=== PATIENT | male | born 1940 | race American Indian/Alaskan Native ===

== ENCOUNTER 2017-04-01 00:35 | Inpatient (IN) | payer MEDICARE ==
[2017-04-01 01:01] LABS: Basophils % (Auto) 0.3 % (0.0-1.8); Eosinophils % (Auto) 1.3 % (0.0-4.3); Hematocrit 37.5 % (35.5-45.6); Hemoglobin 12.1 gm/dl (11.8-15.2); Mean Corpuscular HGB Conc 32 % (32-34); Mean Corpuscular Hemoglobin 30 pg (28-32); Mean Corpuscular Volume 92 fl (84-94); Platelet Count 228 K/mm3 (140-440); Red Blood Count 4.07 M/mm3 (3.65-5.03); Red Cell Distribution Width 14.3 % (13.2-15.2); White Blood Count 7.9 K/mm3 (4.5-11.0)
[2017-04-01] MEDS ORDERED: MAGNESIUM SULFATE IV ONE (01:15)
[2017-04-01] MEDS ORDERED: PROVENTIL IH ONE (01:15)
[2017-04-01 01:34] LABS: BUN/Creatinine Ratio 16.42; Calcium 8.5 mg/dL (8.4-10.2); Chloride 101.8 mmol/L (98-107); Potassium 3.7 mmol/L (3.6-5.0)
[2017-04-01] MEDS ORDERED: LASIX IV ONE (01:40)
[2017-04-01] MEDS ORDERED: MAGNESIUM SULFATE 1 GM in NACL 0.9% 50 ML IV ONE (02:00)
[2017-04-01] MEDS ORDERED: BUMEX IV ONE (02:18)
--- NOTE | 2017-04-01 02:18 | Emergency Department Report ---
HPI - General Chief Complaint: Dyspnea/Respdistress Time Seen by Provider: 04/01/17 00:53 - HPI HPI: Patient brought to the ED with shortness of breath, or rales, wheezing. Patient denies any chest pain. Symptoms started the yesterday but got worse 1 hour prior to ER presentation. No fever, no chills, no night sweats. ED Past Medical Hx - Past Medical History Previous Medical History?: Yes Hx Hypertension: Yes Hx Congestive Heart Failure: Yes (ejection fraction 30-35% two years ago) Hx HIV: No - Social History Smoking Status: Current Every Day Smoker Substance Use Type: None - Medications Home Medications: Home Medications Medication Instructions Recorded Confirmed Last Taken Type Carvedilol [Coreg] 12.5 mg PO BID #60 tablet 10/12/16 Unknown Rx Docusate Sodium [Colace CAP] 100 mg PO BID capsule 10/12/16 Unknown Rx Furosemide [Lasix TAB] 40 mg PO QDAY #60 tablet 10/12/16 Unknown Rx Ipratropium/Albuterol Sulfate 1 ampul IH TIDRT #60 ampul.neb 10/12/16 Unknown Rx [DUONEB *Not for PRN Use*] Lisinopril [Zestril TAB] 40 mg PO QDAY #30 tablet 10/12/16 Unknown Rx Magnesium Hydroxide [Milk of 30 ml PO Q4H PRN #300 oral.liqd 10/12/16 Unknown Rx Magnesia] Sennosides Tab [Senokot] 8.6 mg PO Q12HR #60 tablet 10/12/16 Unknown Rx oxyCODONE /ACETAMINOPHEN [Percocet 1 tab PO Q6H PRN #30 tablet 10/12/16 Unknown Rx 5/325 mg] ED Review of Systems ROS: Stated complaint: ANGY Other details as noted in HPI Comment: All other systems reviewed and negative Respiratory: shortness of breath, SOB with exertion Cardiovascular: chest pain Physical Exam - Physical Exam Vital Signs: Vital Signs 04/01/17 04/01/17 04/01/17 00:33 00:40 00:42 Temperature 97.9 F Pulse Rate 135 H 135 H Pulse Rate [ Anterior Bilateral Throughout] Respiratory 35 H 24 Rate Respiratory Rate [Anterior Bilateral Throughout] Blood Pressure 243/136 243/136 O2 Sat by Pulse 78 L 95 95 Oximetry 04/01/17 04/01/17 04/01/17 00:50 01:00 01:10 Temperature Pulse Rate 112 H 113 H 110 H Pulse Rate [ Anterior Bilateral Throughout] Respiratory 29 H 26 H 27 H Rate Respiratory Rate [Anterior Bilateral Throughout] Blood Pressure 186/105 183/112 183/112 O2 Sat by Pulse 94 92 92 Oximetry 04/01/17 02:05 Temperature Pulse Rate Pulse Rate [ 96 H Anterior Bilateral Throughout] Respiratory Rate Respiratory 24 Rate [Anterior Bilateral Throughout] Blood Pressure O2 Sat by Pulse Oximetry Physical Exam: Gen. alert and oriented 3 in no distress Head atraumatic normocephalic Eyes PERR LA EOMI Chest regular rate and rhythm normal S1-S2 , severe JVD bilaterally lungs decreased breath sounds bilaterally, expiratory wheezing, rales. Abdomen soft nondistended Back no point tenderness paravertebral tenderness Neuro no focal deficit. Psych normal mood. ED Course Vital Signs 04/01/17 04/01/17 04/01/17 00:33 00:40 00:42 Temperature 97.9 F Pulse Rate 135 H 135 H Pulse Rate [ Anterior Bilateral Throughout] Respiratory 35 H 24 Rate Respiratory Rate [Anterior Bilateral Throughout] Blood Pressure 243/136 243/136 O2 Sat by Pulse 78 L 95 95 Oximetry 04/01/17 04/01/17 04/01/17 00:50 01:00 01:10 Temperature Pulse Rate 112 H 113 H 110 H Pulse Rate [ Anterior Bilateral Throughout] Respiratory 29 H 26 H 27 H Rate Respiratory Rate [Anterior Bilateral Throughout] Blood Pressure 186/105 183/112 183/112 O2 Sat by Pulse 94 92 92 Oximetry 04/01/17 02:05 Temperature Pulse Rate Pulse Rate [ 96 H Anterior Bilateral Throughout] Respiratory Rate Respiratory 24 Rate [Anterior Bilateral Throughout] Blood Pressure O2 Sat by Pulse Oximetry ED Medical Decision Making - Lab Data Result diagrams: 04/01/17 00:56 04/01/17 00:52 Critical care attestation.: If time is entered above; I have spent that time in minutes in the direct care of this critically ill patient, excluding procedure time. ED Disposition Clinical Impression: Acute exacerbation of congestive heart failure Disposition: OP ADMIT IP TO THIS HOSP Is pt being admited?: Yes Does the pt Need Aspirin: Yes Condition: Stable Referrals: PRIMARY CARE, [Primary Care Provider] - 3-5 Days
[2017-04-01] MEDS: ASPIRIN PO SCH ×2 (03:08→09:06)
--- NOTE | 2017-04-01 03:15 | History and Physical Report ---
History of Present Illness Date of examination: 04/01/17 Date of admission: 04/01/17 02:23 Chief complaint: Shortness of breath History of present illness: 77-year-old -[place] male with past medical history significant for CHF with ejection fraction of 20-25%, hypertension brought to the emergency department via EMS this morning for the complaints of shortness of breath. Patient is a poor historian. He said he become anxious and SOB. No chest pain, fever or cough. Patient is noncompliant with his medications. Per EMS report patient's blood pressure was 2 40 / 1 50 mmhg, and O2 saturation was 76%. In the emergency department his blood pressure was normalized and patient was put on BiPAP and saturating in the mid 90s. Patient has elevated troponin level and cardiology was consulted and recommended to put him on heparin drip and will see him in the morning. REVIEW OF SYSTEMS: GENERAL: no weight change, no fatigue, no fever HEAD: no head ache EYES: no blurry vision, no acute visual loss EARS: no hearing loss, no discharge, no earache NOSE: no stuffiness, no sneezing, no discharge MOUTH, THROAT AND NECK: no bleeding gums, no sore throat, no swollen neck CARDIAC: no palpitations, + dyspnea on exertion, no orthopnea, no PND, + edema, no chest pain RESPIRATORY: + shortness of breath, no wheeze, no cough, no sputum, no hemoptysis, no asthma GI: no decreased appetite, no nausea, no vomiting, no dysphagia, no diarrhea, no constipation, no abdominal pain URINARY: no change in frequency, no urgency, no polyuria, no hematuria, no incontinence MUSCULOSKELETAL: no muscle weakness, no pain, no joint stiffness NEUROLOGIC: no loss of sensation/numbness, no tingling, no tremors, no weakness/ paralysis HEMATOLOGIC: no anemia, no easy bruising SKIN: no rashes ENDOCRINE: no heat/cold intolerance, no polyuria, no polydipsia, no thyroid problems, no diabetes PSYCHIATRIC: no anxiety, no depression, no suicidal ideations Past History Past Medical History: heart failure, hypertension Past Surgical History: No surgical history Social history: full code. denies: smoking, alcohol abuse, prescription drug abuse, IV drug use Family history: no significant family history Medications and Allergies Allergies Allergy/AdvReac Type Severity Reaction Status Date / Time No Known Allergies Allergy Verified 12/18/14 17:34 Home Medications Medication Instructions Recorded Confirmed Last Taken Type Carvedilol [Coreg] 12.5 mg PO BID #60 tablet 10/12/16 Unknown Rx Docusate Sodium [Colace CAP] 100 mg PO BID capsule 10/12/16 Unknown Rx Furosemide [Lasix TAB] 40 mg PO QDAY #60 tablet 10/12/16 Unknown Rx Ipratropium/Albuterol Sulfate 1 ampul IH TIDRT #60 ampul.neb 10/12/16 Unknown Rx [DUONEB *Not for PRN Use*] Lisinopril [Zestril TAB] 40 mg PO QDAY #30 tablet 10/12/16 Unknown Rx Magnesium Hydroxide [Milk of 30 ml PO Q4H PRN #300 oral.liqd 10/12/16 Unknown Rx Magnesia] Sennosides Tab [Senokot] 8.6 mg PO Q12HR #60 tablet 10/12/16 Unknown Rx oxyCODONE /ACETAMINOPHEN [Percocet 1 tab PO Q6H PRN #30 tablet 10/12/16 Unknown Rx 5/325 mg] Active Meds: Active Medications Aspirin (Aspirin) 325 mg PO QDAY PERNELL Last Admin: 04/01/17 03:08 Dose: 325 mg Magnesium Sulfate 1 gm/ Sodium (Chloride) 52 mls @ 26 mls/hr IV ONCE.ED ONE Stop: 04/01/17 03:59 Last Admin: 04/01/17 02:02 Dose: 26 mls/hr Exam - Physical Exam Narrative exam: Patient is on BiPAP. The patient appeared well nourished and normally developed. Vital signs as documented. Head exam is unremarkable. No scleral icterus . Neck is without jugular venous distension, thyromegaly, or carotid bruits. Lungs decrease air entry. Cardiac exam reveals regular rate and Rhythm. First and second heart sounds normal. No murmurs, rubs or gallops. Abdominal exam reveals normal bowel sounds, no masses, no organomegaly and no aortic enlargement. Extremities are nonedematous and both femoral and pedal pulses are normal. 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 No focal weakness. - Constitutional Vitals: Temp Pulse Resp BP Pulse Ox 97.9 F 98 H 21 133/77 93 04/01/17 00:42 04/01/17 02:10 04/01/17 02:10 04/01/17 02:10 04/01/17 02:10 Results - Labs CBC & Chem 7: 04/01/17 00:56 04/01/17 00:52 Labs: Laboratory Last Values WBC 7.9 K/mm3 (4.5-11.0) 04/01/17 00:56 RBC 4.07 M/mm3 (3.65-5.03) 04/01/17 00:56 Hgb 12.1 gm/dl (11.8-15.2) 04/01/17 00:56 Hct 37.5 % (35.5-45.6) 04/01/17 00:56 MCV 92 fl (84-94) 04/01/17 00:56 MCH 30 pg (28-32) 04/01/17 00:56 MCHC 32 % (32-34) 04/01/17 00:56 RDW 14.3 % (13.2-15.2) 04/01/17 00:56 Plt Count 228 K/mm3 (140-440) 04/01/17 00:56 Lymph % (Auto) 48.5 % (13.4-35.0) H 04/01/17 00:56 [place] % (Auto) 1.9 % (0.0-7.3) 04/01/17 00:56 Eos % (Auto) 1.3 % (0.0-4.3) 04/01/17 00:56 Baso % (Auto) 0.3 % (0.0-1.8) 04/01/17 00:56 Lymph # 3.8 K/mm3 (1.2-5.4) 04/01/17 00:56 [place] # 0.2 K/mm3 (0.0-0.8) 04/01/17 00:56 Eos # 0.1 K/mm3 (0.0-0.4) 04/01/17 00:56 Baso # 0.0 K/mm3 (0.0-0.1) 04/01/17 00:56 Seg Neutrophils % 48.0 % (40.0-70.0) 04/01/17 00:56 Seg Neutrophils # 3.8 K/mm3 (1.8-7.7) 04/01/17 00:56 Sodium 140 mmol/L (137-145) 04/01/17 00:52 Potassium 3.7 mmol/L (3.6-5.0) 04/01/17 00:52 Chloride 101.8 mmol/L (98-107) 04/01/17 00:52 Carbon Dioxide 17 mmol/L (22-30) L 04/01/17 00:52 Anion Gap 25 mmol/L 04/01/17 00:52 BUN 23 mg/dL (9-20) H 04/01/17 00:52 Creatinine 1.4 mg/dL (0.8-1.5) 04/01/17 00:52 Estimated GFR 59 ml/min 04/01/17 00:52 BUN/Creatinine Ratio 16.42 % 04/01/17 00:52 Glucose 274 mg/dL (75-100) H 04/01/17 00:52 Calcium 8.5 mg/dL (8.4-10.2) 04/01/17 00:52 Troponin T 0.030 ng/mL (0.00-0.029) H 04/01/17 00:52 NT-Pro-B Natriuret Pep 7570 pg/mL (0-900) H 04/01/17 02:30 Triglycerides 119 mg/dL (2-149) 04/01/17 00:52 Cholesterol 167 mg/dL (50-199) 04/01/17 00:52 LDL Cholesterol Direct 101 mg/dL (50-130) 04/01/17 00:52 HDL Cholesterol 43 mg/dL (40-59) 04/01/17 00:52 Cholesterol/HDL Ratio 3.88 % 04/01/17 00:52 - Imaging and Cardiology EKG: image reviewed (no significant change from base line) Chest x-ray: image reviewed (pulmonary vascular congestion) Assessment and Plan Assessment and plan: Acute hypoxic respiratory failure Acute on chronic systolic CHF exacerbation NSTEMI Hypertensive emergency - ON BIPAP, O2 support - Managed according to CHF protocol - Cardiology consulted by ED Doc and recommend to start on heparin and will see him in the mrning - Resume appropriate home medications DVT prophylaxis - On therapeutic INR Disposition - admit to telemetry floor. Advance Directives: Yes VTE prophylaxis?: Chemical Plan of care discussed with patient/family: Yes
[2017-04-01] MEDS ORDERED: PERCOCET 5/325 PO PRN (03:19)
[2017-04-01] MEDS ORDERED: MILK OF MAGNESIA PO PRN (03:19)
[2017-04-01 03:55] LABS: Hematocrit 34.9 % (35.5-45.6); Hemoglobin 11.5 gm/dl (11.8-15.2)
[2017-04-01] MEDS ORDERED: HEPARIN/ 0.45% NACL-25,000 UNIT/500 ML 25,000 UNIT/500 ML BAG IV SCH (04:00)
[2017-04-01 04:06] LABS: Bacteria,Urine 1+ /HPF (Negative); Bilirubin,Urine NEG (Negative); Blood,Urine MOD (Negative); Ketones,Urine NEG (Negative); Leukocyte Esterase,Urine TR (Negative); Nitrite,Urine NEG (Negative); Protein,Urine <15 mg/dL mg/dL (Negative); Urobilinogen,Urine < 2.0 mg/dL (<2.0)
[2017-04-01 04:06] LABS: INR 1.14 (0.87-1.13)
[2017-04-01 04:07] LABS: Partial Thromboplastin Time 28.6 Sec. (24.2-36.6)
[2017-04-01] MEDS: LASIX IV SCH ×2 (07:42→17:29)
[2017-04-01] MEDS: HEPARIN/ 0.45% NACL-25,000 UNIT/500 ML 25,000 UNIT/500 ML BAG IV SCH (08:54)
[2017-04-01] MEDS: COREG PO SCH ×2 (09:03→21:59)
[2017-04-01] MEDS: ZESTRIL PO SCH (09:04)
[2017-04-01] MEDS: COLACE PO SCH ×2 (09:04→21:59)
--- NOTE | 2017-04-01 09:29 | XRay Report ---
Single view chest: Compared to 10/09/16. History: Shortness of breath. Findings: Cardiomegaly. Trachea is midline. Pulmonary venous congestion with faint interstitial infiltrates. Normal CP angles. Impression
--- NOTE | 2017-04-01 12:11 | Consultation ---
History of Present Illness Consult date: 04/01/17 Requesting physician: ESSIE PÉREZ Consult reason: congestive heart failure History of present illness: The patient is a rather poor historian. He has a history of chronic combined systolic and diastolic heart failure. Echocardiogram performed in December 2014 revealed an ejection fraction of 30-35 percent with moderate LVH and grade 1 diastolic LV dysfunction. Unfortunately, I could not retrieve the full report of the echo performed in September 2016. He presented this time with progressive dyspnea. At presentation, his BP was 60 severely elevated. One set of cardiac enzymes showed mildly elevated troponin level. His chest x-ray revealed pulmonary vascular congestion. He denies chest pain. Past History Past Medical History: heart failure (chronic combined systolic and diastolic heart failure with an ejection fraction of 30-35% with moderate LVH on echocardiogram obtained in December 2014), hypertension Past Surgical History: No surgical history Social history: full code. denies: smoking, alcohol abuse, prescription drug abuse, IV drug use Family history: no significant family history Medications and Allergies Allergies Allergy/AdvReac Type Severity Reaction Status Date / Time No Known Allergies Allergy Verified 12/18/14 17:34 Home Medications Medication Instructions Recorded Confirmed Last Taken Type Carvedilol [Coreg] 12.5 mg PO BID #60 tablet 10/12/16 Unknown Rx Docusate Sodium [Colace CAP] 100 mg PO BID capsule 10/12/16 Unknown Rx Furosemide [Lasix TAB] 40 mg PO QDAY #60 tablet 10/12/16 Unknown Rx Ipratropium/Albuterol Sulfate 1 ampul IH TIDRT #60 ampul.neb 10/12/16 Unknown Rx [DUONEB *Not for PRN Use*] Lisinopril [Zestril TAB] 40 mg PO QDAY #30 tablet 10/12/16 Unknown Rx Magnesium Hydroxide [Milk of 30 ml PO Q4H PRN #300 oral.liqd 10/12/16 Unknown Rx Magnesia] Sennosides Tab [Senokot] 8.6 mg PO Q12HR #60 tablet 10/12/16 Unknown Rx oxyCODONE /ACETAMINOPHEN [Percocet 1 tab PO Q6H PRN #30 tablet 10/12/16 Unknown Rx 5/325 mg] Active Meds: Active Medications Aspirin (Aspirin) 325 mg PO QDAY PERNLEL Last Admin: 04/01/17 09:06 Dose: 325 mg Atorvastatin Calcium (Lipitor) 40 mg PO QHS [facility] Carvedilol (Coreg) 12.5 mg PO BID [facility] Last Admin: 04/01/17 09:03 Dose: 12.5 mg Docusate Sodium (Colace) 100 mg PO BID [facility] Last Admin: 04/01/17 09:04 Dose: 100 mg Furosemide (Lasix) 40 mg IV 0600,1800 [facility] Last Admin: 04/01/17 07:42 Dose: 40 mg Heparin Sodium/Sodium Chloride (Heparin/ 0.45% Nacl-25,000 Unit/500 Ml) 25,000 unit in 500 mls @ 18 mls/hr IV TITRATE [facility]; 900 UNITS/HR PRN Reason: Protocol Last Admin: 04/01/17 08:54 Dose: 900 units/hr, 18 mls/hr Lisinopril (Zestril) 40 mg PO QDAY [facility] Last Admin: 04/01/17 09:04 Dose: 40 mg Magnesium Hydroxide (Milk Of Magnesia) 30 ml PO Q4H PRN PRN Reason: Constipation Oxycodone/Acetaminophen (Percocet 5/325) 1 tab PO Q6H PRN PRN Reason: Pain, Moderate (4-6) Review of Systems Constitutional: no fever, no chills Ears, nose, mouth and throat: no ear pain, no ear discharge, no sore throat Cardiovascular: shortness of breath, no chest pain, no palpitations, no edema, no syncope, no lightheadedness Respiratory: shortness of breath, dyspnea on exertion, no cough, no hemoptysis Gastrointestinal: no abdominal pain, no nausea, no vomiting, no diarrhea, no constipation Genitourinary Male: no dysuria, no urinary frequency Rectal: no pain, no bleeding Musculoskeletal: no neck stiffness, no neck pain, no myalgias Integumentary: no rash, no pruritis Neurological: no weakness, no parathesias, no numbness, no tingling, no headaches Endocrine: no cold intolerance, no heat intolerance Hematologic/Lymphatic: no easy bruising, no easy bleeding Allergic/Immunologic: no urticaria, no wheezing Physical Examination Vital Signs Last Vital Signs Temp 97.4 F L 04/01/17 06:20 Pulse 96 H 04/01/17 10:00 Resp 20 04/01/17 10:00 BP 180/102 04/01/17 06:20 Pulse Ox 98 04/01/17 10:00 General appearance: no acute distress HEENT: Positive: EOMI, Normocephaly, Sinus Tenderness, Mucus Membranes Moist Neck: Positive: neck supple, trachea midline, JVD/HJR (elevated) Cardiac: Positive: Reg Rate and Rhythm, S1/S2 Lungs: Positive: clear to auscultation Neuro: Positive: Grossly Intact Abdomen: Positive: Soft, Active Bowel Sounds. Negative: Tender Skin: Positive: Clear. Negative: Rash Musculoskeletal: Normal Range of Motion Extremities: Present: normal. Absent: edema Results 04/01/17 03:43 04/01/17 00:52 Coagulation 04/01/17 Range/Units 03:43 PT 14.5 (12.2-14.9) Sec. INR 1.14 H (0.87-1.13) APTT 28.6 (24.2-36.6) Sec. CBC 04/01/17 Range/Units 03:43 Hgb 11.5 L (11.8-15.2) gm/dl Hct 34.9 L (35.5-45.6) % Plt Count 209 (140-440) K/mm3 - Imaging and Cardiology EKG: image reviewed EKG interpretations - Telemetry EKG Rhythm: Sinus Tachycardia - EKG Sinus rhythms and dysrhythmias: sinus tachycardia AV and intraventricular conduction: left bundle branch block Repolarization changes or abnormalities: nonspecific abnormality, ST segment, and/or T wave Assessment and Plan I agree with his current regimen. Optimize his BP control. - Patient Problems (1) Acute combined systolic and diastolic heart failure Current Visit: Yes Status: Acute (2) Accelerated hypertension Current Visit: Yes Status: Acute (3) Elevated troponin level Current Visit: Yes Status: Acute (4) Cardiomyopathy Current Visit: Yes Status: Chronic Qualifiers: Cardiomyopathy type: other Qualified Code(s): I42.8 - Other cardiomyopathies
--- NOTE | 2017-04-01 18:31 | Event Note ---
Date: 04/01/17 Patient seen and evaluated medical records reviewed, Agree with the current management, cardiology evaluation noted and appreciated. Closely monitor the patient and adjust the management as needed, possible discharge in 1-2 days if stable
[2017-04-01] MEDS ORDERED: APRESOLINE IV ONE (22:55)
[2017-04-01] MEDS ORDERED: APRESOLINE IV PRN (22:58)
[2017-04-02] MEDS: LASIX IV SCH ×2 (06:12→17:01)
[2017-04-02] MEDS: ZESTRIL PO SCH (10:30)
[2017-04-02] MEDS: ASPIRIN PO SCH (10:30)
[2017-04-02] MEDS: COLACE PO SCH ×2 (10:30→22:22)
[2017-04-02] MEDS: COREG PO SCH ×2 (10:31→22:22)
--- NOTE | 2017-04-02 11:34 | Admit Criteria Form ---
Admission Criteria Documentation: HEART FAILURE: COMMON COMPLICATIONS Clinical Indications for Inpatient Care ([place]/check or initial the applicable condition/criteria): Ongoing inpatient care may be indicated for heart failure with 1 or more of the following (1)(2)(3)(4)(5)(6)(7)(8): [ ]I. New-onset heart failure [ ]II. Acute cardiac ischemia causing or associated with failure [ ]III. Ongoing need for care for primary condition requiring frequent therapy adjustments because of changes in cardiac function (eg, drug dosage changes for drugs that are renally metabolized) [X ]IV. Complications of heart failure, including 1 or more of the following: [ ]a) Hemodynamic instability [ ]b) Pericardial effusion [ ]c) Symptomatic pleural effusion(16) [X ]d) Hypoxemia [ ]e) Tachypnea [X ]f) Dyspnea [ ]g) Syncope [ ]h) Altered mental status [ ]i) Acute renal insufficiency that is severe (reduction of more than 50% in estimated glomerular filtration rate from baseline) or progressive (reduction of more than 25% in estimated glomerular filtration rate from baseline, with creatinine continuing to rise) [ ]j) Debilitating anasarca (eg tissue breakdown with infection, inability to void due to edema)(E) (17) [ ]k) Clinically significant metabolic abnormalities due to heart failure (e.g., new-onset metabolic acidosis) Extended stay may be needed until ALL of the following are present(1)(3)(18)(41) (55): [ ]a) Hemodynamic stability [ ]b) Stable and effective diuretic regimen established (or patient on stable dialysis regimen if in chronic renal failure) [ ]c) Volume status acceptable on oral medication [ ]d) Breathing comfortably at rest [ ]e) Saturation of arterial oxygen greater than 90% or at acceptable baseline [ ]f) Pulmonary edema absent or improved [ ]g) Peripheral or sacral edema absent or improved [ ]h) Renal function stable and manageable at a lower level of care [ ]i) Complications (e.g., pleural effusion) resolved or manageable at a lower level of care [ ]j) Patient or caregiver has received written discharge instructions or educational material addressing activity level, diet, discharge medications, follow-up appointment, weight monitoring, and what to do if symptoms worsen. (56)(57)(58) The original [employer] content created by [facility] has been revised. The portions of the content which have been revised are identified through the use of italic text or in bold, and Fernanda Luis has neither reviewed nor approved the modified material.All other unmodified content is copyright [facility]. Please see references footnoted in the original [facility] edition 2017 Admission Criteria Met: Yes
--- NOTE | 2017-04-02 14:20 | Progress Note ---
Assessment and Plan This 77-year-old gentleman has been admitted with the uncontrolled hypertension with the acute dyspnea. Mild elevation of the troponin was noted. Currently her blood pressure has significantly improved and he is asymptomatic. Plan is to repeat troponin and obtain a nuclear stress test tomorrow for further cardiac evaluation. Medications are reviewed. - Patient Problems (1) Accelerated hypertension Current Visit: Yes Status: Acute (2) Elevated troponin level Current Visit: Yes Status: Acute (3) Cardiomyopathy Current Visit: Yes Status: Chronic Qualifiers: Cardiomyopathy type: other Qualified Code(s): I42.8 - Other cardiomyopathies Subjective Date of service: 04/02/17 Interval history: Patient denies chest pain. No significant difficulty in breathing today. Blood pressure has improved Objective Vital Signs Temp Pulse Resp BP Pulse Ox 04/02/17 10:31 78 168/75 04/02/17 10:30 78 168/75 04/02/17 08:00 98.0 F 78 18 168/75 98 04/02/17 04:00 97.5 F L 72 18 156/70 99 04/02/17 00:00 97.4 F L 72 18 186/86 97 04/01/17 20:40 72 04/01/17 20:00 97.5 F L 72 18 210/98 97 04/01/17 17:45 98.7 F 72 20 128/60 100 04/01/17 16:48 92 H - Physical Examination General: Appears Well HEENT: Positive: EOMI, Normocephaly, Sinus Tenderness, Mucus Membranes Moist Neck: Positive: neck supple, trachea midline, JVD/HJR (elevated) Cardiac: Positive: Regular Rate, Systolic Murmur, Diastolic Murmur Lungs: Positive: clear to auscultation Neuro: Positive: Grossly Intact Abdomen: Positive: Soft, Active Bowel Sounds. Negative: Tender Skin: Positive: Clear. Negative: Rash Musculoskeletal: Normal Range of Motion Extremities: Present: normal. Absent: edema - Imaging and Cardiology EKG: image reviewed - EKG Sinus rhythms and dysrhythmias: sinus tachycardia AV and intraventricular conduction: left bundle branch block Repolarization changes or abnormalities: nonspecific abnormality, ST segment, and/or T wave
[2017-04-02] MEDS: HEPARIN/ 0.45% NACL-25,000 UNIT/500 ML 25,000 UNIT/500 ML BAG IV SCH (16:46)
[2017-04-02] MEDS: HALDOL IM PRN (16:56)
[2017-04-02] MEDS ORDERED: ATIVAN IV ONE (18:37)
--- NOTE | 2017-04-02 20:37 | Progress Note ---
Assessment and Plan Assessment and plan: --Elevated troponin/probable non-ST elevation [place] Continue current cardiac medications, cardiology following, on heparin drip --Acute on chronic systolic congestive heart failure Continue anti-failure medications, input and output monitoring Cardiology following. EF 30-35% --Malignant hypertension; continue current antihypertensives, when necessary medications Sedation for agitation --Metabolic encephalopathy; confusion Supportive care, psych evaluation if needed --Dyslipidemia; stable on lipid-lowering medications --DVT prophylaxis; patient is on heparin drip --Full CODE STATUS Closely monitor the patient and adjust management as needed Disposition; follow cardiology evaluations and recommendations Possible discharge in one to 2 days if stable History Interval history: Sincerely and evaluated medical records reviewed Patient is minimally communicative and confused Cachectic and dehydrated Hospitalist Physical - Constitutional Vitals: Temp Pulse Resp BP Pulse Ox 97.6 F 68 18 119/67 97 04/02/17 16:00 04/02/17 16:00 04/02/17 16:00 04/02/17 16:00 04/02/17 16:00 General appearance: Present: no acute distress, cachectic, disheveled - EENT Eyes: Present: PERRL, EOM intact - Neck Neck: Present: supple, normal ROM - Respiratory Respiratory effort: normal Respiratory: bilateral: diminished, rales, negative: rhonchi, wheezing - Cardiovascular Rhythm: regular Heart Sounds: Present: S1 & S2 - Extremities Extremities: no ischemia, No edema - Abdominal General gastrointestinal: soft, non-tender, non-distended, normal bowel sounds - Integumentary Integumentary: Present: clear, warm - Psychiatric Psychiatric: other (noncommunicative confused, agitated at times) - Neurologic Neurologic: moves all extremities Results - Labs CBC & Chem 7: 04/01/17 03:43 04/01/17 00:52 Labs: Laboratory Last Values WBC 7.9 K/mm3 (4.5-11.0) 04/01/17 00:56 RBC 4.07 M/mm3 (3.65-5.03) 04/01/17 00:56 Hgb 11.5 gm/dl (11.8-15.2) L 04/01/17 03:43 Hct 34.9 % (35.5-45.6) L 04/01/17 03:43 MCV 92 fl (84-94) 04/01/17 00:56 MCH 30 pg (28-32) 04/01/17 00:56 MCHC 32 % (32-34) 04/01/17 00:56 RDW 14.3 % (13.2-15.2) 04/01/17 00:56 Plt Count 209 K/mm3 (140-440) 04/01/17 03:43 Lymph % (Auto) 48.5 % (13.4-35.0) H 04/01/17 00:56 [place] % (Auto) 1.9 % (0.0-7.3) 04/01/17 00:56 Eos % (Auto) 1.3 % (0.0-4.3) 04/01/17 00:56 Baso % (Auto) 0.3 % (0.0-1.8) 04/01/17 00:56 Lymph # 3.8 K/mm3 (1.2-5.4) 04/01/17 00:56 [place] # 0.2 K/mm3 (0.0-0.8) 04/01/17 00:56 Eos # 0.1 K/mm3 (0.0-0.4) 04/01/17 00:56 Baso # 0.0 K/mm3 (0.0-0.1) 04/01/17 00:56 Seg Neutrophils % 48.0 % (40.0-70.0) 04/01/17 00:56 Seg Neutrophils # 3.8 K/mm3 (1.8-7.7) 04/01/17 00:56 PT 14.5 Sec. (12.2-14.9) 04/01/17 03:43 INR 1.14 (0.87-1.13) H 04/01/17 03:43 APTT 28.6 Sec. (24.2-36.6) 04/01/17 03:43 Heparin Anti-Xa Level 0.43 U.I./ml (0.3-0.7) 04/02/17 05:44 Sodium 140 mmol/L (137-145) 04/01/17 00:52 Potassium 3.7 mmol/L (3.6-5.0) 04/01/17 00:52 Chloride 101.8 mmol/L (98-107) 04/01/17 00:52 Carbon Dioxide 17 mmol/L (22-30) L 04/01/17 00:52 Anion Gap 25 mmol/L 04/01/17 00:52 BUN 23 mg/dL (9-20) H 04/01/17 00:52 Creatinine 1.4 mg/dL (0.8-1.5) 04/01/17 00:52 Estimated GFR 59 ml/min 04/01/17 00:52 BUN/Creatinine Ratio 16.42 % 04/01/17 00:52 Glucose 274 mg/dL (75-100) H 04/01/17 00:52 Calcium 8.5 mg/dL (8.4-10.2) 04/01/17 00:52 Troponin T 0.046 ng/mL (0.00-0.029) H D 04/02/17 14:55 NT-Pro-B Natriuret Pep 7570 pg/mL (0-900) H 04/01/17 02:30 Triglycerides 119 mg/dL (2-149) 04/01/17 00:52 Cholesterol 167 mg/dL (50-199) 04/01/17 00:52 LDL Cholesterol Direct 101 mg/dL (50-130) 04/01/17 00:52 HDL Cholesterol 43 mg/dL (40-59) 04/01/17 00:52 Cholesterol/HDL Ratio 3.88 % 04/01/17 00:52 Urine Color Yellow (Yellow) 04/01/17 03:34 Urine Turbidity Clear (Clear) 04/01/17 03:34 Urine pH 5.0 (5.0-7.0) 04/01/17 03:34 Ur Specific [place] 1.009 (1.003-1.030) 04/01/17 03:34 Urine Protein <15 mg/dl mg/dL (Negative) 04/01/17 03:34 Urine Glucose (UA) Neg mg/dL (Negative) 04/01/17 03:34 Urine Ketones Neg mg/dL (Negative) 04/01/17 03:34 Urine Blood Mod (Negative) 04/01/17 03:34 Urine Nitrite Neg (Negative) 04/01/17 03:34 Urine Bilirubin Neg (Negative) 04/01/17 03:34 Urine Urobilinogen < 2.0 mg/dL (<2.0) 04/01/17 03:34 Ur Leukocyte Esterase Tr (Negative) 04/01/17 03:34 Urine WBC (Auto) 5.0 /HPF (0.0-6.0) 04/01/17 03:34 Urine RBC (Auto) 13.0 /HPF (0.0-6.0) 04/01/17 03:34 U Epithel Cells (Auto) < 1.0 /HPF (0-13.0) 04/01/17 03:34 Urine Bacteria (Auto) 1+ /HPF (Negative) 04/01/17 03:34 Hyaline Casts 2 /LPF 04/01/17 03:34
[2017-04-03 06:31] LABS: Hematocrit 33.8 % (35.5-45.6); Hemoglobin 11.3 gm/dl (11.8-15.2)
[2017-04-03] MEDS: LASIX IV SCH ×2 (06:45→17:18)
[2017-04-03] MEDS: HEPARIN/ 0.45% NACL-25,000 UNIT/500 ML 25,000 UNIT/500 ML BAG IV SCH (06:49)
[2017-04-03] MEDS ORDERED: LEXISCAN IV ONE (09:46)
--- NOTE | 2017-04-03 13:55 | Progress Note ---
Assessment and Plan Assessment: Accelerated HTN Elevated troponin - doubt ACS at this time; flat; likely secondary to accelerated HTN and acutely decompensated HF. 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 Given that pt is clinically and hemodynamically stable, denies any cardiac complaints, currently intermittently confused, and is high risk for invasive cardiac evaluation/management, will continue with medical management at this time. D/c heparin gtt. D/w Dr. Pacheco. Optimize anti-hypertensive regimen - initiate Imdur and increase Coreg to 25mg PO BID. The patient has been seen in conjunction with Dr. HEMAL Villalpando who agrees with the assessment and plan of care. Subjective Date of service: 04/03/17 Principal diagnosis: HTN Interval history: Pt resting comfortably in bed, no complaints. BPs remain labile. Objective Last Vital Signs Temp 98.7 F 04/03/17 12:42 Pulse 69 04/03/17 12:42 Resp 20 04/03/17 12:42 BP 193/88 04/03/17 12:42 Pulse Ox 100 04/03/17 12:42 - Physical Examination General: Appears Well HEENT: Positive: EOMI, Normocephaly, Sinus Tenderness, Mucus Membranes Moist Neck: Positive: neck supple, trachea midline, JVD/HJR (elevated) Cardiac: Positive: Reg Rate and Rhythm, S1/S2, Diastolic Murmur (grade II/) Lungs: Positive: clear to auscultation Neuro: Positive: Grossly Intact Abdomen: Positive: Soft, Active Bowel Sounds. Negative: Tender Skin: Positive: Clear. Negative: Rash Musculoskeletal: Normal Range of Motion Extremities: Present: normal. Absent: edema - Labs and Meds CBC 04/03/17 Range/Units 05:43 Hgb 11.3 L (11.8-15.2) gm/dl Hct 33.8 L (35.5-45.6) % Plt Count 200 (140-440) K/mm3 - Imaging and Cardiology EKG: image reviewed Echo: report reviewed (09/2016: EF 20 - 25%, pseudonormalization, moderate AR, mild , mild MR, mild MS, mild TR, mild pulmonary HTN ) - Telemetry EKG Rhythm: Sinus Rhythm - EKG Sinus rhythms and dysrhythmias: sinus tachycardia AV and intraventricular conduction: left bundle branch block Repolarization changes or abnormalities: nonspecific abnormality, ST segment, and/or T wave
[2017-04-03] MEDS: ZESTRIL PO SCH (14:35)
[2017-04-03] MEDS: COLACE PO SCH ×2 (14:35→22:37)
[2017-04-03] MEDS: COREG PO SCH ×3 (14:36→22:37)
[2017-04-03] MEDS: ASPIRIN PO SCH (14:37)
[2017-04-03] MEDS: IMDUR PO SCH (14:38)
--- NOTE | 2017-04-03 14:40 | Treadmill Report ---
NUCLEAR STRESS TEST REPORT The patient is brought to the Cardiology lab and nuclear stress test is performed by administering Lexiscan. The patient tolerated the procedure well. Post-stress images revealed marked dilatation of the left ventricle with global hypokinesis. Severe left ventricular systolic dysfunction is noted. Ejection fraction is calculated to be 24%. Post-stress images revealed reduced perfusion in the inferolateral wall, which is mostly fixed, mild anteroapical reversibility is also noted. There is a significant uptake of the isotope by the intestines, which interferes and these abnormalities could very well be artifactual. IMPRESSION: 1. Abnormal nuclear scan with left ventricular dilation and severe left ventricular systolic dysfunction with a calculated ejection fraction of 24%. 2. Mostly fixed inferolateral defect, possibly artifactual. 3. Mild anteroapical reversibility may indicate ischemia. 4. Suggest clinical correlation. JOB# [id number] KBM/NTS
--- NOTE | 2017-04-03 16:53 | Progress Note ---
Assessment and Plan Assessment and plan: Patient is a 77 year-old -[place] male with history of CHF, ejection fraction of 20-25%, hypertension presented with altered mental status and shortness of breath. Patient is a poor historian. Patient is noncompliant with his medications. Per EMS report patient's blood pressure was 240/150 mmhg, and O2 saturation was 76%. In the emergency department his blood pressure was normalized and patient was put on BiPAP and saturating in the mid 90s. Patient has elevated troponin level and cardiology was consulted, stress test was positive but cardiology recommended medical management. -Acute hypoxic respiratory failure: Continue treatment oxygen --Elevated troponin/probable non-ST elevation [place] Continue current cardiac medications, cardiology following, on heparin drip will be stopped --Acute on chronic systolic congestive heart failure Continue anti-failure medications, input and output monitoring Cardiology following. EF 30-35% --Malignant hypertension; continue current antihypertensives, when necessary medications Sedation for agitation --Metabolic encephalopathy; confusion Supportive care, psych evaluation if needed --Dyslipidemia; stable on lipid-lowering medications --DVT prophylaxis; patient is on heparin drip --Full CODE STATUS -Positive stress test, discussed with cardiology, medical management Restraints renewed Disposition; follow cardiology evaluations and recommendations Possible discharge in one to 2 days if stable History Interval history: Patient seen and examined. Follow up on current diagnosis/ams. Overnight uneventful. No cp, sob, n/v or severe headaches. Imaging, old records, testing, labs, nursing notes reviewed. Hospitalist Physical - Physical exam Narrative exam: GEN: Cachectic NAD, AWAKE, ALERT, confused HEENT: NCAT, PERRL, EOMI, OP CLEAR NECK: SUPPLE, NO THYROMEGALY, NO JVD, NO LAD CVS: RRR, NORMAL S1S2 LUNGS/CHEST: CTA B, NORMAL CHEST EXPANSION B, GOOD AIR ENTRY B ABD: SOFT, NTND, GBS, NO REBOUND OR GUARDING EXT/SKIN: NO SIGNIFICANT EDEMA OR RASH MSK: FROM X 4 EXTREMITIES NEURO: CN 2-12 GROSSLY INTACT, NO FOCAL DEFICITS PSY: Anxious - Constitutional Vitals: Temp Pulse Resp BP Pulse Ox 98.7 F 67 20 193/88 98 04/03/17 12:42 04/03/17 14:59 04/03/17 12:42 04/03/17 14:44 04/03/17 14:59 General appearance: Present: no acute distress, cachectic, disheveled Results - Labs CBC & Chem 7: 04/03/17 05:43 04/01/17 00:52 Labs: Laboratory Last Values WBC 7.9 K/mm3 (4.5-11.0) 04/01/17 00:56 RBC 4.07 M/mm3 (3.65-5.03) 04/01/17 00:56 Hgb 11.3 gm/dl (11.8-15.2) L 04/03/17 05:43 Hct 33.8 % (35.5-45.6) L 04/03/17 05:43 MCV 92 fl (84-94) 04/01/17 00:56 MCH 30 pg (28-32) 04/01/17 00:56 MCHC 32 % (32-34) 04/01/17 00:56 RDW 14.3 % (13.2-15.2) 04/01/17 00:56 Plt Count 200 K/mm3 (140-440) 04/03/17 05:43 Lymph % (Auto) 48.5 % (13.4-35.0) H 04/01/17 00:56 [place] % (Auto) 1.9 % (0.0-7.3) 04/01/17 00:56 Eos % (Auto) 1.3 % (0.0-4.3) 04/01/17 00:56 Baso % (Auto) 0.3 % (0.0-1.8) 04/01/17 00:56 Lymph # 3.8 K/mm3 (1.2-5.4) 04/01/17 00:56 [place] # 0.2 K/mm3 (0.0-0.8) 04/01/17 00:56 Eos # 0.1 K/mm3 (0.0-0.4) 04/01/17 00:56 Baso # 0.0 K/mm3 (0.0-0.1) 04/01/17 00:56 Seg Neutrophils % 48.0 % (40.0-70.0) 04/01/17 00:56 Seg Neutrophils # 3.8 K/mm3 (1.8-7.7) 04/01/17 00:56 PT 14.5 Sec. (12.2-14.9) 04/01/17 03:43 INR 1.14 (0.87-1.13) H 04/01/17 03:43 APTT 28.6 Sec. (24.2-36.6) 04/01/17 03:43 Heparin Anti-Xa Level 0.67 U.I./ml (0.3-0.7) 04/03/17 05:43 Sodium 140 mmol/L (137-145) 04/01/17 00:52 Potassium 3.7 mmol/L (3.6-5.0) 04/01/17 00:52 Chloride 101.8 mmol/L (98-107) 04/01/17 00:52 Carbon Dioxide 17 mmol/L (22-30) L 04/01/17 00:52 Anion Gap 25 mmol/L 04/01/17 00:52 BUN 23 mg/dL (9-20) H 04/01/17 00:52 Creatinine 1.4 mg/dL (0.8-1.5) 04/01/17 00:52 Estimated GFR 59 ml/min 04/01/17 00:52 BUN/Creatinine Ratio 16.42 % 04/01/17 00:52 Glucose 274 mg/dL (75-100) H 04/01/17 00:52 POC Glucose 114 (70-105) H 04/02/17 22:12 Calcium 8.5 mg/dL (8.4-10.2) 04/01/17 00:52 Troponin T 0.046 ng/mL (0.00-0.029) H D 04/02/17 14:55 NT-Pro-B Natriuret Pep 7570 pg/mL (0-900) H 04/01/17 02:30 Triglycerides 119 mg/dL (2-149) 04/01/17 00:52 Cholesterol 167 mg/dL (50-199) 04/01/17 00:52 LDL Cholesterol Direct 101 mg/dL (50-130) 04/01/17 00:52 HDL Cholesterol 43 mg/dL (40-59) 04/01/17 00:52 Cholesterol/HDL Ratio 3.88 % 04/01/17 00:52 Urine Color Yellow (Yellow) 04/01/17 03:34 Urine Turbidity Clear (Clear) 04/01/17 03:34 Urine pH 5.0 (5.0-7.0) 04/01/17 03:34 Ur Specific [place] 1.009 (1.003-1.030) 04/01/17 03:34 Urine Protein <15 mg/dl mg/dL (Negative) 04/01/17 03:34 Urine Glucose (UA) Neg mg/dL (Negative) 04/01/17 03:34 Urine Ketones Neg mg/dL (Negative) 04/01/17 03:34 Urine Blood Mod (Negative) 04/01/17 03:34 Urine Nitrite Neg (Negative) 04/01/17 03:34 Urine Bilirubin Neg (Negative) 04/01/17 03:34 Urine Urobilinogen < 2.0 mg/dL (<2.0) 04/01/17 03:34 Ur Leukocyte Esterase Tr (Negative) 04/01/17 03:34 Urine WBC (Auto) 5.0 /HPF (0.0-6.0) 04/01/17 03:34 Urine RBC (Auto) 13.0 /HPF (0.0-6.0) 04/01/17 03:34 U Epithel Cells (Auto) < 1.0 /HPF (0-13.0) 04/01/17 03:34 Urine Bacteria (Auto) 1+ /HPF (Negative) 04/01/17 03:34 Hyaline Casts 2 /LPF 04/01/17 03:34
[2017-04-04] MEDS: LASIX IV SCH (06:50)
[2017-04-04 08:08] LABS: Blood Urea Nitrogen 39 mg/dL (9-20); Calcium 8.6 mg/dL (8.4-10.2); Carbon Dioxide 26 mmol/L (22-30); Chloride 97.7 mmol/L (98-107); Glucose 92 mg/dL (75-100); Sodium 141 mmol/L (137-145)
[2017-04-04 08:16] LABS: Anion Gap 20 mmol/L
[2017-04-04] MEDS: HALDOL IM PRN ×2 (08:38→23:23)
[2017-04-04] MEDS: IMDUR PO SCH (09:32)
[2017-04-04] MEDS: ZESTRIL PO SCH (09:32)
[2017-04-04] MEDS: ASPIRIN PO SCH (09:32)
[2017-04-04] MEDS: COLACE PO SCH ×2 (09:32→22:16)
[2017-04-04] MEDS: COREG PO SCH ×2 (09:32→22:17)
--- NOTE | 2017-04-04 11:40 | Progress Note ---
Assessment and Plan Assessment: Accelerated HTN Elevated troponin - doubt ACS at this time; flat; likely secondary to accelerated HTN and acutely decompensated HF. 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 Given that pt is clinically and hemodynamically stable, denies any cardiac complaints, currently intermittently confused, and is high risk for invasive cardiac evaluation/management, will continue with medical management at this time. D/w Dr. Pacheco. Cont Imdur, Coreg, and lisinopril. Further BP optimization per primary. Currently stable cardiac status. The patient has been seen in conjunction with Dr. HEMAL Villalpando who agrees with the assessment and plan of care. Subjective Date of service: 04/04/17 Principal diagnosis: HTN Interval history: Pt resting comfortably in bed, no complaints. BPs remain labile. Objective Last Vital Signs Temp 97.6 F 04/04/17 08:10 Pulse 65 04/04/17 09:32 Resp 18 04/04/17 08:10 BP 174/79 04/04/17 09:32 Pulse Ox 100 04/04/17 08:10 - Physical Examination General: Appears Well HEENT: Positive: EOMI, Normocephaly, Sinus Tenderness, Mucus Membranes Moist Neck: Positive: neck supple, trachea midline, JVD/HJR (elevated) Cardiac: Positive: Reg Rate and Rhythm, S1/S2 Lungs: Positive: clear to auscultation Neuro: Positive: Grossly Intact Abdomen: Positive: Soft, Active Bowel Sounds. Negative: Tender Skin: Positive: Clear. Negative: Rash Musculoskeletal: Normal Range of Motion Extremities: Present: normal. Absent: edema - Labs and Meds Comprehensive Metabolic Panel 04/04/17 Range/Units 06:22 Sodium 141 (137-145) mmol/L Potassium 3.0 L (3.6-5.0) mmol/L Chloride 97.7 L (98-107) mmol/L Carbon Dioxide 26 D (22-30) mmol/L BUN 39 H (9-20) mg/dL Creatinine 1.2 (0.8-1.5) mg/dL Glucose 92 (75-100) mg/dL Calcium 8.6 (8.4-10.2) mg/dL - Imaging and Cardiology EKG: image reviewed Echo: report reviewed (09/2016: EF 20 - 25%, pseudonormalization, moderate AR, mild , mild MR, mild MS, mild TR, mild pulmonary HTN ) - EKG Sinus rhythms and dysrhythmias: sinus tachycardia AV and intraventricular conduction: left bundle branch block Repolarization changes or abnormalities: nonspecific abnormality, ST segment, and/or T wave
[2017-04-04] MEDS ORDERED: K-DUR PO ONE (12:00)
--- NOTE | 2017-04-04 18:17 | Progress Note ---
Assessment and Plan Assessment and plan: Patient is a 77 year-old man with history of CHF, ejection fraction of 20-25%, hypertension presented with altered mental status and shortness of breath. Patient is a poor historian. Patient is noncompliant with his medications. Per EMS report patient's blood pressure was 240/150 mmhg, and O2 saturation was 76% . In the emergency department his blood pressure was normalized and patient was put on BiPAP and saturating in the mid 90s. Patient has elevated troponin level and cardiology was consulted, stress test was positive but cardiology recommended medical management. -Acute hypoxic respiratory failure: Continue treatment oxygen --Elevated troponin/probable non-ST elevation [place] Continue current cardiac medications, cardiology following, on heparin drip will be stopped --Acute on chronic systolic congestive heart failure Continue anti-failure medications, input and output monitoring Cardiology following. EF 30-35% --Malignant hypertension; continue current antihypertensives, when necessary medications Sedation for agitation --Metabolic encephalopathy; confusion Supportive care, psych evaluation if needed --Dyslipidemia; stable on lipid-lowering medications --DVT prophylaxis; patient is on heparin drip --Full CODE STATUS -Positive stress test, discussed with cardiology, medical management Restraints renewed Disposition; follow cardiology evaluations and recommendations Possible discharge in one to 2 days if stable per Cardiology, "Assessment: Accelerated HTN Elevated troponin - doubt ACS at this time; flat; likely secondary to accelerated HTN and acutely decompensated HF. 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 Given that pt is clinically and hemodynamically stable, denies any cardiac complaints, currently intermittently confused, and is high risk for invasive cardiac evaluation/management, will continue with medical management at this time. D/w Dr. Pacheco. Cont Imdur, Coreg, and lisinopril. Further BP optimization per primary. Currently stable cardiac status." I called and spoke with Leana Vilchis [phone], [id number], whom him lives with. Family is arranging to patient sister is coming to help care for him. History Interval history: Patient seen and examined. Follow up on current diagnosis/ams. Overnight uneventful. No cp, sob, n/v or severe headaches. Imaging, old records, testing, labs, nursing notes reviewed. Hospitalist Physical - Physical exam Narrative exam: GEN: Cachectic NAD, AWAKE, ALERT, confused orientated x 1 HEENT: NCAT, PERRL, EOMI, OP CLEAR NECK: SUPPLE, NO THYROMEGALY, NO JVD, NO LAD CVS: RRR, NORMAL S1S2 LUNGS/CHEST: CTA B, NORMAL CHEST EXPANSION B, GOOD AIR ENTRY B ABD: SOFT, NTND, GBS, NO REBOUND OR GUARDING EXT/SKIN: NO SIGNIFICANT EDEMA OR RASH MSK: FROM X 4 EXTREMITIES NEURO: CN 2-12 GROSSLY INTACT, NO FOCAL DEFICITS, walked to the nursing stations without problems PSY: Anxious - Constitutional Vitals: Temp Pulse Resp BP Pulse Ox 97.7 F 70 18 97/51 100 04/04/17 16:25 04/04/17 16:25 04/04/17 16:25 04/04/17 16:25 04/04/17 16:25 General appearance: Present: no acute distress, cachectic, disheveled Results - Labs CBC & Chem 7: 04/03/17 05:43 04/04/17 06:22 Labs: Laboratory Last Values WBC 7.9 K/mm3 (4.5-11.0) 04/01/17 00:56 RBC 4.07 M/mm3 (3.65-5.03) 04/01/17 00:56 Hgb 11.3 gm/dl (11.8-15.2) L 04/03/17 05:43 Hct 33.8 % (35.5-45.6) L 04/03/17 05:43 MCV 92 fl (84-94) 04/01/17 00:56 MCH 30 pg (28-32) 04/01/17 00:56 MCHC 32 % (32-34) 04/01/17 00:56 RDW 14.3 % (13.2-15.2) 04/01/17 00:56 Plt Count 200 K/mm3 (140-440) 04/03/17 05:43 Lymph % (Auto) 48.5 % (13.4-35.0) H 04/01/17 00:56 [place] % (Auto) 1.9 % (0.0-7.3) 04/01/17 00:56 Eos % (Auto) 1.3 % (0.0-4.3) 04/01/17 00:56 Baso % (Auto) 0.3 % (0.0-1.8) 04/01/17 00:56 Lymph # 3.8 K/mm3 (1.2-5.4) 04/01/17 00:56 [place] # 0.2 K/mm3 (0.0-0.8) 04/01/17 00:56 Eos # 0.1 K/mm3 (0.0-0.4) 04/01/17 00:56 Baso # 0.0 K/mm3 (0.0-0.1) 04/01/17 00:56 Seg Neutrophils % 48.0 % (40.0-70.0) 04/01/17 00:56 Seg Neutrophils # 3.8 K/mm3 (1.8-7.7) 04/01/17 00:56 PT 14.5 Sec. (12.2-14.9) 04/01/17 03:43 INR 1.14 (0.87-1.13) H 04/01/17 03:43 APTT 28.6 Sec. (24.2-36.6) 04/01/17 03:43 Heparin Anti-Xa Level < 0.10 U.I./ml (0.3-0.7) L 04/04/17 06:22 Sodium 141 mmol/L (137-145) 04/04/17 06:22 Potassium 3.0 mmol/L (3.6-5.0) L 04/04/17 06:22 Chloride 97.7 mmol/L (98-107) L 04/04/17 06:22 Carbon Dioxide 26 mmol/L (22-30) D 04/04/17 06:22 Anion Gap 20 mmol/L 04/04/17 06:22 BUN 39 mg/dL (9-20) H 04/04/17 06:22 Creatinine 1.2 mg/dL (0.8-1.5) 04/04/17 06:22 Estimated GFR > 60 ml/min 04/04/17 06:22 BUN/Creatinine Ratio 32.50 % 04/04/17 06:22 Glucose 92 mg/dL (75-100) 04/04/17 06:22 POC Glucose 114 (70-105) H 04/02/17 22:12 Calcium 8.6 mg/dL (8.4-10.2) 04/04/17 06:22 Troponin T 0.046 ng/mL (0.00-0.029) H D 04/02/17 14:55 NT-Pro-B Natriuret Pep 7570 pg/mL (0-900) H 04/01/17 02:30 Triglycerides 119 mg/dL (2-149) 04/01/17 00:52 Cholesterol 167 mg/dL (50-199) 04/01/17 00:52 LDL Cholesterol Direct 101 mg/dL (50-130) 04/01/17 00:52 HDL Cholesterol 43 mg/dL (40-59) 04/01/17 00:52 Cholesterol/HDL Ratio 3.88 % 04/01/17 00:52 Urine Color Yellow (Yellow) 04/01/17 03:34 Urine Turbidity Clear (Clear) 04/01/17 03:34 Urine pH 5.0 (5.0-7.0) 04/01/17 03:34 Ur Specific [place] 1.009 (1.003-1.030) 04/01/17 03:34 Urine Protein <15 mg/dl mg/dL (Negative) 04/01/17 03:34 Urine Glucose (UA) Neg mg/dL (Negative) 04/01/17 03:34 Urine Ketones Neg mg/dL (Negative) 04/01/17 03:34 Urine Blood Mod (Negative) 04/01/17 03:34 Urine Nitrite Neg (Negative) 04/01/17 03:34 Urine Bilirubin Neg (Negative) 04/01/17 03:34 Urine Urobilinogen < 2.0 mg/dL (<2.0) 04/01/17 03:34 Ur Leukocyte Esterase Tr (Negative) 04/01/17 03:34 Urine WBC (Auto) 5.0 /HPF (0.0-6.0) 04/01/17 03:34 Urine RBC (Auto) 13.0 /HPF (0.0-6.0) 04/01/17 03:34 U Epithel Cells (Auto) < 1.0 /HPF (0-13.0) 04/01/17 03:34 Urine Bacteria (Auto) 1+ /HPF (Negative) 04/01/17 03:34 Hyaline Casts 2 /LPF 04/01/17 03:34
[2017-04-04] MEDS: HALDOL PO SCH (22:16)
[2017-04-05 06:28] LABS: Hematocrit 31.5 % (35.5-45.6); Hemoglobin 10.5 gm/dl (11.8-15.2); Mean Corpuscular HGB Conc 33 % (32-34); Mean Corpuscular Hemoglobin 30 pg (28-32); Mean Corpuscular Volume 89 fl (84-94); Red Blood Count 3.53 M/mm3 (3.65-5.03); White Blood Count 5.6 K/mm3 (4.5-11.0)
[2017-04-05 06:36] LABS: Platelet Count 183 K/mm3 (140-440)
[2017-04-05 06:39] LABS: Anion Gap 17 mmol/L; Blood Urea Nitrogen 37 mg/dL (9-20); Calcium 8.9 mg/dL (8.4-10.2); Carbon Dioxide 28 mmol/L (22-30); Chloride 101.2 mmol/L (98-107); Glucose 85 mg/dL (75-100); Potassium 3.2 mmol/L (3.6-5.0); Sodium 143 mmol/L (137-145)
[2017-04-05] MEDS ORDERED: POTASSIUM CHLORIDE PO NR (08:30)
[2017-04-05] MEDS ORDERED: LASIX PO SCH (10:00)
--- NOTE | 2017-04-05 11:05 | Progress Note ---
Assessment and Plan Assessment: Accelerated HTN Elevated troponin - doubt ACS at this time; flat; likely secondary to accelerated HTN and acutely decompensated HF. 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 Given that pt is clinically and hemodynamically stable, denies any cardiac complaints, currently intermittently confused, and is high risk for invasive cardiac evaluation/management, will continue with medical management at this time. Cont Imdur, Coreg, and lisinopril. Further BP optimization per primary. Currently stable cardiac status. Will see PRN. Recommend follow up in our office with Kelsie Stauffer NP, within 2 weeks of hospital discharge ([phone]). The patient has been seen in conjunction with Dr. Renita Villalpando who agrees with the assessment and plan of care. Subjective Date of service: 04/05/17 Principal diagnosis: HTN Interval history: Pt resting comfortably in bed, no complaints. BPs remain labile. Objective Last Vital Signs Temp 98.6 F 04/05/17 08:50 Pulse 72 04/05/17 09:30 Resp 18 04/05/17 08:50 BP 186/81 04/05/17 08:50 Pulse Ox 97 04/05/17 09:26 - Physical Examination General: Appears Well HEENT: Positive: EOMI, Normocephaly, Sinus Tenderness, Mucus Membranes Moist Neck: Positive: neck supple, trachea midline, JVD/HJR (elevated) Cardiac: Positive: Reg Rate and Rhythm, S1/S2 Lungs: Positive: clear to auscultation Neuro: Positive: Grossly Intact Abdomen: Positive: Soft, Active Bowel Sounds. Negative: Tender Skin: Positive: Clear. Negative: Rash Musculoskeletal: Normal Range of Motion Extremities: Present: normal. Absent: edema - Labs and Meds CBC 04/05/17 Range/Units 05:39 WBC 5.6 (4.5-11.0) K/mm3 RBC 3.53 L (3.65-5.03) M/mm3 Hgb 10.5 L (11.8-15.2) gm/dl Hct 31.5 L (35.5-45.6) % Plt Count 183 (140-440) K/mm3 Comprehensive Metabolic Panel 04/05/17 Range/Units 05:39 Sodium 143 (137-145) mmol/L Potassium 3.2 L (3.6-5.0) mmol/L Chloride 101.2 (98-107) mmol/L Carbon Dioxide 28 (22-30) mmol/L BUN 37 H (9-20) mg/dL Creatinine 1.0 (0.8-1.5) mg/dL Glucose 85 (75-100) mg/dL Calcium 8.9 (8.4-10.2) mg/dL - Imaging and Cardiology EKG: image reviewed Echo: report reviewed (09/2016: EF 20 - 25%, pseudonormalization, moderate AR, mild , mild MR, mild MS, mild TR, mild pulmonary HTN ) - EKG Sinus rhythms and dysrhythmias: sinus tachycardia AV and intraventricular conduction: left bundle branch block Repolarization changes or abnormalities: nonspecific abnormality, ST segment, and/or T wave
[2017-04-05] MEDS: HALDOL PO SCH (11:23)
[2017-04-05] MEDS: ZESTRIL PO SCH (11:24)
[2017-04-05] MEDS: COREG PO SCH (11:24)
[2017-04-05] MEDS: COLACE PO SCH (11:24)
[2017-04-05] MEDS: IMDUR PO SCH (11:24)
[2017-04-05] MEDS: ASPIRIN PO SCH (11:24)
--- NOTE | 2017-04-05 14:06 | Discharge Summary ---
Providers - Providers Date of Admission: 04/01/17 02:23 Date of discharge: 04/05/17 Attending physician: ORI BRIGHT 04/01/17 Consult to Cardiac Rehabilitation [CONS] Routine Reason For Exam: Phase 1 04/01/17 03:22 Consult to Physician [CONS] Routine Consulting Provider: ANTWAN TSAI Reason For Exam: NSTEMI, CHF Place consult to:: Dr. Tsai Notified:: Douglas PRESTON Phone number called:: Was contact made?: Yes If yes, spoke with:: Katerine-answering service Time called:: 08:04/04/17 17:58 Consult to Mental Health [CONS] Routine Reason For Exam: Agitation Place consult to:: Dr. Renita Alberts Notified:: psych Phone number called:: [phone] Was contact made?: Yes Time called:: 18:20 Primary care physician: SENIOR UNDERWRITING ASSISTANT Hospitalization Condition: Fair Hospital course: Patient is a 77 year-old man with history of CHF, ejection fraction of 20-25%, hypertension presented with altered mental status and shortness of breath. Patient is a poor historian. Patient is noncompliant with his medications. Per EMS report patient's blood pressure was 240/150 mmhg, and O2 saturation was 76% . In the emergency department his blood pressure was normalized and patient was put on BiPAP and saturating in the mid 90s. Patient has elevated troponin level and cardiology was consulted, stress test was positive but cardiology recommended medical management. -Acute hypoxic respiratory failure: oxygen, weaned off, ok to be discharged. --Elevated troponin/probable non-ST elevation MT Continue current cardiac medications, cardiology following, on heparin drip will be stopped --Acute on chronic systolic congestive heart failure Continue anti-failure medications, input and output monitoring Cardiology following. 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 Supportive care, psych evaluation if needed --Dyslipidemia; stable on lipid-lowering medications --DVT prophylaxis; patient is on heparin drip --Full CODE STATUS -Positive stress test, discussed with cardiology, medical management Restraints renewed Disposition: Home with home care per Cardiology, "Assessment: Accelerated HTN Elevated troponin - doubt ACS at this time; flat; likely secondary to accelerated HTN and acutely decompensated HF. 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 Given that pt is clinically and hemodynamically stable, denies any cardiac complaints, currently intermittently confused, and is high risk for invasive cardiac evaluation/management, will continue with medical management at this time. D/w Dr. Bright. Cont Imdur, Coreg, and lisinopril. Further BP optimization per primary. Currently stable cardiac status." I called and spoke with Leana Vilchis [phone], [id number], whom him lives with. Family is arranging to patient sister is coming to help care for him. Circuit Tester final recommendation: "S/p lexiscan MPI stress test this AM which showed EF 24%, inferolateral fixed defect with mild reversibility, mild anteroapical reversibility. Given that pt is clinically and hemodynamically stable, denies any cardiac complaints, currently intermittently confused, and is high risk for invasive cardiac evaluation/management, will continue with medical management at this time. Cont Imdur, Coreg, and lisinopril. Further BP optimization per primary. Currently stable cardiac status. Will see PRN. Recommend follow up in our office with Kelsie Stauffer NP, within 2 weeks of hospital discharge ([phone]) . The patient has been seen in conjunction with Dr. Renita Villalpando who agrees with the assessment and plan of care." Disposition: DC/[place]-06 HOME UNDER HOME [facility] Time spent for discharge: 36 minutes Core Measure Documentation - Palliative Care Palliative Care/ Comfort Measures: Not Applicable - Core Measures Any of the following diagnoses?: heart failure - VTE Discharge Requirements Deep Vein Thrombosis/Pulmonary Embolism Present on Admission: No Has pt received <5 days of overlap therapy or INR<2.0: No Anticoagulant overlap therapy prescribed at discharge: No Contraindication No Overlap Therapy order at DC: Not Indicated - Heart Failure Discharge Requirements TIFF/ARB for LVSD if EF <40%: Yes Beta sivan at discharge: Yes Exam - Physical Exam Narrative exam: GEN: Cachectic NAD, AWAKE, ALERT, confused orientated x 2 HEENT: NCAT, PERRL, EOMI, OP CLEAR NECK: SUPPLE, NO THYROMEGALY, NO JVD, NO LAD CVS: RRR, NORMAL S1S2 LUNGS/CHEST: CTA B, NORMAL CHEST EXPANSION B, GOOD AIR ENTRY B ABD: SOFT, NTND, GBS, NO REBOUND OR GUARDING EXT/SKIN: NO SIGNIFICANT EDEMA OR RASH MSK: FROM X 4 EXTREMITIES NEURO: CN 2-12 GROSSLY INTACT, NO FOCAL DEFICITS, walked to the nursing stations without problems PSY: Anxious - Constitutional Vitals: Temp Pulse Resp BP Pulse Ox 97.8 F 52 L 16 168/71 100 04/05/17 12:03 04/05/17 12:03 04/05/17 12:03 04/05/17 12:03 04/05/17 12:03 Plan Activity: up only with assistance, fall precautions, other (no strenous activities, no operating heavy machinery) Diet: low salt Special Instructions: home health RN Durable Medical Equipment Needed Upon Discharge: Nebulizer Follow up with: PRIMARY CARE,MD [Primary Care Provider] - 3-5 Days Prescriptions: AtorvaSTATin [Lipitor] 40 mg PO QHS #30 tablet Carvedilol [Coreg] 12.5 mg PO BID #60 tablet Carvedilol [Coreg] 25 mg PO BID #30 day Docusate Sodium [Colace CAP] 100 mg PO BID #30 day Furosemide [Lasix TAB] 40 mg PO QDAY #30 tablet Haloperidol [Haldol] 1 mg PO BID #30 day ISOSORBIDE MONOnitrate [Imdur ER] 30 mg PO QDAY #30 tablet Lisinopril [Zestril TAB] 40 mg PO QDAY #30 tablet Potassium Chloride [K-Dur] 20 meq PO QDAY #30 tablet Ipratropium/Albuterol Sulfate [DUONEB *Not for PRN Use*] 1 ampul IH TIDRT #30 day
[2017-04-05 16:08] VITALS: BP 165/72
--- NOTE | 2017-04-05 19:32 | Consultation ---
History of Present Illness - Reason for Consult Consult date: 04/05/17 Reason for consult: Mental Health Evaluation Requesting physician: GLORIA REYNA - Chief Complaint Chief complaint: "Hello" - History of Present Psychiatric Illness Patient brought to the ED with shortness of breath, or rales, wheezing. Psychiatry was consulted to see patient for AMS. Today patient was calm during assessment. He could state his , but could not recall 3 numbers (1,5,11) in 5 mins. He denied pain, but could not tell me why he was admitted to the hospital. Per the staff, he is pending discharge today back home with his family. No gestures of SI/Hi's and AVH's. Patient is poor historian. Medications and Allergies Allergies Allergy/AdvReac Type Severity Reaction Status Date / Time No Known Allergies Allergy Verified 12/18/14 17:34 Home Medications Medication Instructions Recorded Confirmed Last Taken Type Aspirin [Aspirin TAB] 325 mg PO QDAY #30 tablet 04/05/17 Unknown Rx AtorvaSTATin [Lipitor] 40 mg PO QHS #30 tablet 04/05/17 Unknown Rx Carvedilol [Coreg] 12.5 mg PO BID #60 tablet 04/05/17 Unknown Rx Carvedilol [Coreg] 25 mg PO BID #30 day 04/05/17 Unknown Rx Docusate Sodium [Colace CAP] 100 mg PO BID #30 day 04/05/17 Unknown Rx Furosemide [Lasix TAB] 40 mg PO QDAY #30 tablet 04/05/17 Unknown Rx Haloperidol [Haldol] 1 mg PO BID #30 day 04/05/17 Unknown Rx ISOSORBIDE MONOnitrate [Imdur ER] 30 mg PO QDAY #30 tablet 04/05/17 Unknown Rx Ipratropium/Albuterol Sulfate 1 ampul IH TIDRT #30 day 04/05/17 Unknown Rx [DUONEB *Not for PRN Use*] Lisinopril [Zestril TAB] 40 mg PO QDAY #30 tablet 04/05/17 Unknown Rx Potassium Chloride [K-Dur] 20 meq PO QDAY #30 tablet 04/05/17 Unknown Rx Past psychiatric history - Past Medical History Past Medical History: hypertension Past Surgical History: Other (Unable to obtain ) - past Psychiatric treatment and history psychiatric treatment history: Unable to obtain - Social History Social history: lives with family (Per notes) Mental Status Exam - Vital signs Last Vital Signs Temp 97.8 F 04/05/17 16:07 Pulse 70 04/05/17 16:07 Resp 18 04/05/17 16:07 BP 165/72 04/05/17 16:07 Pulse Ox 100 04/05/17 16:07 - Exam Narrative exam: ROS: (-) psychosis MSE: Appearance: calm Behavior: regular eye contact Speech: muffled Mood: "okay" Affect: congruent to mood Thought Process: unable to access Thought Content:no gestures of SI/HI's and AVH's Motor Activity: lying in bed Cognition: A/Ox 2 Insight: limited Judgment: limited Results Result Diagrams: 04/05/17 05:39 04/05/17 05:39 Abnormal lab results 04/05/17 04/05/17 Range/Units 05:39 05:39 RBC 3.53 L (3.65-5.03) M/mm3 Hgb 10.5 L (11.8-15.2) gm/dl Hct 31.5 L (35.5-45.6) % Potassium 3.2 L (3.6-5.0) mmol/L BUN 37 H (9-20) mg/dL All other labs normal. Assessment and Plan Assessment and plan: Impression: Historical Dx: Dementia. Today patient calm during assessment. Patient in waist restraint. Medical: Metabolic Encephalopathy due to current medical condition Recommendation/Plan: Patient can continue current medication regimen once discharged. Follow-up with out patient psy services to determine the need for Haldol (home medication).
== END 2017-04-05 18:38 | disposition home health service (06) | DRG 280 ==
LOC: ED 00:35 → 4A 02:23
PROVIDERS: ADMIT Internal Medicine; ATTEND Internal Medicine
PROC: 5A09357 Assistance with Respiratory Ventilation, Less than 24 Consecutive Hours, Continuous Positive Airway Pressure (ICD-10-PCS; principal; 2017-04-01)
DX: I21.4 Non-ST elevation (NSTEMI) myocardial infarction (principal); J96.01 Acute respiratory failure with hypoxia; G93.41 Metabolic encephalopathy; I50.43 Acute on chronic combined systolic (congestive) and diastolic (congestive) heart failure; I16.1 Hypertensive emergency; I42.9 Cardiomyopathy, unspecified; E44.0 Moderate protein-calorie malnutrition; Z68.1 Body mass index [BMI] 19.9 or less, adult; I11.0 Hypertensive heart disease with heart failure; F17.200 Nicotine dependence, unspecified, uncomplicated; E78.5 Hyperlipidemia, unspecified; Z91.19 Patient's noncompliance with other medical treatment and regimen
CPT/HCPCS: 36415; 71010; 78452; 80048; 80061; 81001; 82962; 83735; 83880; 84484; 85014; 85018; 85025; 85027; 85049; 85520; 85610; 85730; 93005; 93010; 93017; 93306; 94640; 96365; 96375; A9270-GY; A9502; J0360; J1630; J1644; J1940; J2060; J2785; J3475

== ENCOUNTER 2018-02-04 05:19 | Inpatient (IN) | payer MEDICARE ==
[2018-02-04 06:26] LABS: Basophils % (Auto) 0.2 % (0.0-1.8); Eosinophils # (Auto) 0.1 K/mm3 (0.0-0.4); Eosinophils % (Auto) 0.6 % (0.0-4.3); Hematocrit 33.4 % (35.5-45.6); Hemoglobin 10.9 gm/dl (11.8-15.2); Lymphocytes # (Auto) 1.2 K/mm3 (1.2-5.4); Lymphocytes % (Auto) 14.5 % (13.4-35.0); Mean Corpuscular HGB Conc 33 % (32-34); Mean Corpuscular Hemoglobin 29 pg (28-32); Mean Corpuscular Volume 90 fl (84-94); Monocytes # (Auto) 0.2 K/mm3 (0.0-0.8); Monocytes % (Auto) 2.9 % (0.0-7.3); Platelet Count 208 K/mm3 (140-440); Red Blood Count 3.72 M/mm3 (3.65-5.03); Red Cell Distribution Width 14.6 % (13.2-15.2)
[2018-02-04] MEDS ORDERED: PEPCID IV ONE (06:33)
[2018-02-04] MEDS ORDERED: ZOFRAN IV ONE (06:34)
[2018-02-04] MEDS ORDERED: ZESTRIL PO ONE (06:34)
[2018-02-04 06:42] LABS: Alanine Aminotransferase 10 units/L (7-56); Albumin 3.9 g/dL (3.9-5); BUN/Creatinine Ratio 20; Blood Urea Nitrogen 16 mg/dL (9-20); Calcium 8.9 mg/dL (8.4-10.2); Hemolysis Index 2
--- NOTE | 2018-02-04 06:54 | Emergency Department Report ---
ED Abdominal Pain HPI - General Chief Complaint: Abdominal Pain Stated Complaint: ABD PAIN Time Seen by Provider: 02/04/18 06:17 Source: patient, EMS, old records reviewed Mode of arrival: Stretcher Limitations: No Limitations - History of Present Illness Initial Comments: 77-year-old male with past medical history of hypertension, diastolic systolic heart, moderate to severe AR, and possible dementia presents to the hospital with complaints of "abdominal pain for a couple of days". Pain is in mid upper abdomen, intermittent pain rated 5/10 in intensity occurring for 5-10 minutes at a time that is worse with palpation. Nausea with one episode of vomiting. Denies fever or diarrhea. - Related Data Previous Rx's Medication Instructions Recorded Last Taken Type Aspirin [Aspirin TAB] 325 mg PO QDAY #30 tablet 04/05/17 Unknown Rx AtorvaSTATin [Lipitor] 40 mg PO QHS #30 tablet 04/05/17 Unknown Rx Carvedilol [Coreg] 12.5 mg PO BID #60 tablet 04/05/17 Unknown Rx Docusate Sodium [Colace CAP] 100 mg PO BID #30 day 04/05/17 Unknown Rx Furosemide [Lasix TAB] 40 mg PO QDAY #30 tablet 04/05/17 Unknown Rx ISOSORBIDE MONOnitrate [Imdur ER] 30 mg PO QDAY #30 tablet 04/05/17 Unknown Rx Ipratropium/Albuterol Sulfate 1 ampul IH TIDRT #30 day 04/05/17 Unknown Rx [DUONEB *Not for PRN Use*] Lisinopril [Zestril TAB] 40 mg PO QDAY #30 tablet 04/05/17 Unknown Rx Potassium Chloride [K-Dur] 20 meq PO QDAY #30 tablet 04/05/17 Unknown Rx Carvedilol [Coreg] 12.5 mg PO BID #30 day 11/23/17 Unknown Rx Allergies Allergy/AdvReac Type Severity Reaction Status Date / Time No Known Allergies Allergy Verified 12/18/14 17:34 ED Review of Systems ROS: Stated complaint: ABD PAIN Other details as noted in HPI Comment: All other systems reviewed and negative ED Past Medical Hx - Past Medical History Previous Medical History?: Yes Hx Hypertension: Yes Hx Congestive Heart Failure: Yes (EF 15-20% echo 11/20/2017. Chronic mitral valve vegetation) Hx Dementia: Yes Hx HIV: No - Social History Smoking Status: Never Smoker Substance Use Type: None - Medications Home Medications: Home Medications Medication Instructions Recorded Confirmed Last Taken Type Aspirin [Aspirin TAB] 325 mg PO QDAY #30 tablet 04/05/17 11/20/17 Unknown Rx AtorvaSTATin [Lipitor] 40 mg PO QHS #30 tablet 04/05/17 11/20/17 Unknown Rx Carvedilol [Coreg] 12.5 mg PO BID #60 tablet 04/05/17 11/20/17 Unknown Rx Docusate Sodium [Colace CAP] 100 mg PO BID #30 day 04/05/17 11/20/17 Unknown Rx Furosemide [Lasix TAB] 40 mg PO QDAY #30 tablet 04/05/17 11/20/17 Unknown Rx ISOSORBIDE MONOnitrate [Imdur ER] 30 mg PO QDAY #30 tablet 04/05/17 11/20/17 Unknown Rx Ipratropium/Albuterol Sulfate 1 ampul IH TIDRT #30 day 04/05/17 11/20/17 Unknown Rx [DUONEB *Not for PRN Use*] Lisinopril [Zestril TAB] 40 mg PO QDAY #30 tablet 04/05/17 11/20/17 Unknown Rx Potassium Chloride [K-Dur] 20 meq PO QDAY #30 tablet 04/05/17 11/20/17 Unknown Rx Carvedilol [Coreg] 12.5 mg PO BID #30 day 11/23/17 11/20/17 Unknown Rx ED Physical Exam - General Limitations: No Limitations - Other Other exam information: General: No limitations, patient is alert in no acute distress Head exam: Atraumatic, normocephalic Eyes exam: Normal appearance, nonicteric sclera ENT: Moist mucous membrane, normal oropharynx Neck exam: Normal inspection, full range of motion, no meningismus nontender Respiratory exam: MIld left base crackles. No tachypnea or accessory muscle use Cardiovascular: Normal rate and rhythm, normal heart sounds Abdomen: Soft, previous abdominal scars noted, gastric tenderness, no rebound, no guarding, bowel sounds Extremity: Full range of motion normal inspection no deformity Back: Normal Inspection, full range of motion, no tenderness Neurologic: Alert, oriented to self, cranial nerves intact, no motor or sensory deficit Psychiatric: normal affect, normal mood Skin: Warm, dry, intact ED Course Vital Signs 02/04/18 02/04/18 02/04/18 05:24 05:31 05:34 Temperature 98.4 F Pulse Rate 62 Respiratory 16 Rate Blood Pressure 212/65 215/76 212/65 Blood Pressure [Left] O2 Sat by Pulse 100 Oximetry 02/04/18 02/04/18 02/04/18 05:46 06:01 06:55 Temperature Pulse Rate 60 Respiratory Rate Blood Pressure 208/80 155/132 215/79 Blood Pressure [Left] O2 Sat by Pulse Oximetry 02/04/18 02/04/18 06:56 08:03 Temperature 98.3 F Pulse Rate 75 Respiratory 20 15 Rate Blood Pressure Blood Pressure 197/76 [Left] O2 Sat by Pulse 99 96 Oximetry - Reevaluation(s) Reevaluation #1: 02/04/18 09:09 no vomiting in ed - Consultations Consultation #1: 02/04/18 09:07 case d/w Dr michelle berrios surgery, rec admission, ivf, will consult ED Medical Decision Making - Lab Data Result diagrams: 02/04/18 06:07 02/04/18 06:07 Lab Results 02/04/18 02/04/18 02/04/18 Range/Units 06:07 06:07 07:53 WBC 8.6 (4.5-11.0) K/mm3 RBC 3.72 (3.65-5.03) M/mm3 Hgb 10.9 L (11.8-15.2) gm/dl Hct 33.4 L (35.5-45.6) % MCV 90 (84-94) fl MCH 29 (28-32) pg MCHC 33 (32-34) % RDW 14.6 (13.2-15.2) % Plt Count 208 (140-440) K/mm3 Lymph % (Auto) 14.5 (13.4-35.0) % Worth % (Auto) 2.9 (0.0-7.3) % Eos % (Auto) 0.6 (0.0-4.3) % Baso % (Auto) 0.2 (0.0-1.8) % Lymph # 1.2 (1.2-5.4) K/mm3 Worth # 0.2 (0.0-0.8) K/mm3 Eos # 0.1 (0.0-0.4) K/mm3 Baso # 0.0 (0.0-0.1) K/mm3 Seg Neutrophils % 81.8 H (40.0-70.0) % Seg Neutrophils # 7.0 (1.8-7.7) K/mm3 Sodium 138 (137-145) mmol/L Potassium 3.7 (3.6-5.0) mmol/L Chloride 100.7 (98-107) mmol/L Carbon Dioxide 23 (22-30) mmol/L Anion Gap 18 mmol/L BUN 16 (9-20) mg/dL Creatinine 0.8 (0.8-1.5) mg/dL Estimated GFR > 60 ml/min BUN/Creatinine Ratio 20 % Glucose 149 H (75-100) mg/dL Calcium 8.9 (8.4-10.2) mg/dL Total Bilirubin 1.00 (0.1-1.2) mg/dL AST 20 (5-40) units/L ALT 10 (7-56) units/L Alkaline Phosphatase 54 (35-129) units/L Total Protein 7.7 (6.3-8.2) g/dL Albumin 3.9 (3.9-5) g/dL Albumin/Globulin Ratio 1.0 % Lipase 14 (13-60) units/L Urine Color Yellow (Yellow) Urine Turbidity Hazy (Clear) Urine pH 5.0 (5.0-7.0) Ur Specific [place] 1.016 (1.003-1.030) Urine Protein <15 mg/dl (Negative) mg/dL Urine Glucose (UA) Neg (Negative) mg/dL Urine Ketones Neg (Negative) mg/dL Urine Blood Sm (Negative) Urine Nitrite Neg (Negative) Urine Bilirubin Neg (Negative) Urine Urobilinogen < 2.0 (<2.0) mg/dL Ur Leukocyte Esterase Mod (Negative) Urine WBC (Auto) 25.0 H (0.0-6.0) /HPF Urine RBC (Auto) 3.0 (0.0-6.0) /HPF U Epithel Cells (Auto) 1.0 (0-13.0) /HPF Urine Bacteria (Auto) 1+ (Negative) /HPF Urine Mucus Few /HPF - Radiology Data Radiology results: report reviewed CT ABDOMEN AND PELVIS WITH CONTRAST INDICATION: Upper abdominal pain, vomiting. COMPARISON: 01/04/2010 CT. FINDINGS: Abdomen and pelvis CT performed following intravenous administration of 100 cc of Omnipaque 300. LUNG BASES: Stable mild to moderate cardiomegaly. Anterior pericardial fluid toward the base of the heart again noted, approximately 1 cm in AP thickness as on axial series 2, image 28. Trace bibasilar pleural fluid or thickening at the extreme lung bases as on axial image 39, series 2, though smaller since the prior exam. Minimal bibasilar atelectasis. Atherosclerotic coronary calcifications. Nonspecific distal esophageal wall prominence/thickening, not excluded for gastroesophageal reflux and/or hiatal hernia, amongst others. ABDOMEN: New small ascites noted, surrounding the liver, spleen as also the bowel. Nonopacified GI tract evaluation limited. Stomach contains some hyperdense contents and fluid. Visualized second portion of the duodenum appears decompressed. Remainder duodenum difficult to track well with subtle malrotation difficult to entirely exclude. However, predominantly left hemiabdomen small bowel loops fluid filled and dilated up to approximately 3.5 cm as on axial image 67, series 2, amongst others. Also, approximately 50 cm long segment of probable mid small bowel as on axial images 60-135 coursing across the mid to lower abdomen demonstrates diffuse approximately 0.7 cm wall thickening as on axial image 91, series 2 with small bowel caliber approximately 3.5 cm. Few normal caliber and CT appearance small bowel loops with hyperdense contents noted in the right lower quadrant, lateral to the stool containing mildly redundant ascending colon. Transverse colon stool also noted. Descending colon difficult to accurately track, though may be coursing somewhat medial than usual. Liver, spleen, pancreas, adrenals, nonaneurysmal abdominal aorta with few atherosclerotic calcifications, IVC and kidneys within normal limits. Gallbladder not well delineated due to ascites, though without definite radiopaque gallstones. Bilateral renal cortical hypodensities/cysts, approximately 2.5 cm right upper renal while approximately 0.9 cm at the left lower renal pole. Celiac axis, SMA and FRANSICO are patent. PELVIS: Small prostatic calcifications. Unremarkable urinary bladder and seminal vesicles. Rectosigmoid stool. Small pelvic free fluid. No definite significant adenopathy. Multilevel spinal degenerative spurring, greatest lumbar. Partially sacralized L5. Demineralized bones with possible subtle left inferior pubic ramus old deformity. Bilateral SI joint degenerative bridging. CONCLUSION: 1. New ascites and approximately 50 cm segment of probable mid small bowel thickening and fluid filled dilatation, as detailed above, possibly representing enteritis. Closed-loop obstruction may though also be correlated for clinically in the given setting. 2. Various other incidental findings as cardiomegaly, trace bibasilar pleural effusions and renal cysts, amongst others, as above. I phoned the above results to Dr. Garcia in the ER, 8:15 AM, 02/04/2018. Thank you for the opportunity to participate in this patient's care. - Medical Decision Making abd pain Enteritis versus closed loop obstruction Surgery consulted + uti: Rocephin, urine cx pending HTN chronic, trending downward Lisinopril by mouth given (Iv hydralazine not available and heart rate in the 60s so therefore labetalol avoided - Differential Diagnosis gastritis, pancreatitis, hepatitis, abdominal pain NOS Critical Care Time: No Critical care attestation.: If time is entered above; I have spent that time in minutes in the direct care of this critically ill patient, excluding procedure time. ED Disposition Clinical Impression: Abdominal pain, Dilation of intestine, UTI (urinary tract infection), Dementia , Chronic heart failure Disposition: DC-09 OP ADMIT IP TO THIS HOSP Is pt being admited?: Yes Condition: Stable Time of Disposition: 09:10 (Dr Mercado/hosp)
[2018-02-04 07:13] LABS: Lipase 14 units/L (13-60)
[2018-02-04 08:26] LABS: Bacteria,Urine 1+ /HPF (Negative); Bilirubin,Urine NEG (Negative); Blood,Urine SM (Negative); Color,Urine Yellow (Yellow); Mucus,Urine FEW /HPF; Protein,Urine <15 mg/dL mg/dL (Negative); Urobilinogen,Urine < 2.0 mg/dL (<2.0)
--- NOTE | 2018-02-04 08:32 | Cat Scan Report ---
CT ABDOMEN AND PELVIS WITH CONTRAST INDICATION: Upper abdominal pain, vomiting. COMPARISON: 01/04/2010 CT. FINDINGS: Abdomen and pelvis CT performed following intravenous administration of 100 cc of Omnipaque 300. LUNG BASES: Stable mild to moderate cardiomegaly. Anterior pericardial fluid toward the base of the heart again noted, approximately 1 cm in AP thickness as on axial series 2, image 28. Trace bibasilar pleural fluid or thickening at the extreme lung bases as on axial image 39, series 2, though smaller since the prior exam. Minimal bibasilar atelectasis. Atherosclerotic coronary calcifications. Nonspecific distal esophageal wall prominence/thickening, not excluded for gastroesophageal reflux and/or hiatal hernia, amongst others. ABDOMEN: New small ascites noted, surrounding the liver, spleen as also the bowel. Nonopacified GI tract evaluation limited. Stomach contains some hyperdense contents and fluid. Visualized second portion of the duodenum appears decompressed. Remainder duodenum difficult to track well with subtle malrotation difficult to entirely exclude. However, predominantly left hemiabdomen small bowel loops fluid filled and dilated up to approximately 3.5 cm as on axial image 67, series 2, amongst others. Also, approximately 50 cm long segment of probable mid small bowel as on axial images 60-135 coursing across the mid to lower abdomen demonstrates diffuse approximately 0.7 cm wall thickening as on axial image 91, series 2 with small bowel caliber approximately 3.5 cm. Few normal caliber and CT appearance small bowel loops with hyperdense contents noted in the right lower quadrant, lateral to the stool containing mildly redundant ascending colon. Transverse colon stool also noted. Descending colon difficult to accurately track, though may be coursing somewhat medial than usual. Liver, spleen, pancreas, adrenals, nonaneurysmal abdominal aorta with few atherosclerotic calcifications, IVC and kidneys within normal limits. Gallbladder not well delineated due to ascites, though without definite radiopaque gallstones. Bilateral renal cortical hypodensities/cysts, approximately 2.5 cm right upper renal while approximately 0.9 cm at the left lower renal pole. Celiac axis, SMA and FRANSICO are patent. PELVIS: Small prostatic calcifications. Unremarkable urinary bladder and seminal vesicles. Rectosigmoid stool. Small pelvic free fluid. No definite significant adenopathy. Multilevel spinal degenerative spurring, greatest lumbar. Partially sacralized L5. Demineralized bones with possible subtle left inferior pubic ramus old deformity. Bilateral SI joint degenerative bridging. CONCLUSION: 1. New ascites and approximately 50 cm segment of probable mid small bowel thickening and fluid filled dilatation, as detailed above, possibly representing enteritis. Closed-loop obstruction may though also be correlated for clinically in the given setting. 2. Various other incidental findings as cardiomegaly, trace bibasilar pleural effusions and renal cysts, amongst others, as above. I phoned the above results to Dr. Garcia in the ER, 8:15 AM, 02/04/2018. Thank you for the opportunity to participate in this patient's care.
[2018-02-04] MEDS ORDERED: ROCEPHIN/NS 1 GM/50 ML 1 GM/50 ML BAG IV ONE (08:53)
[2018-02-04] MEDS ORDERED: cefTRIAXone 1 GM in NACL 0.9% 20 ML IV ONE (09:15)
--- NOTE | 2018-02-04 09:45 | History and Physical Report ---
History of Present Illness Date of examination: 02/04/18 Date of admission: 02/04/18 Chief complaint: Abdominal pain/nausea vomiting History of present illness: 77-year-old male patient, well known to our service with past medical history of hypertension, systolic systolic heart, cardiomyopathy, moderate to severe AR, and possible dementia and recurrent admissions in the past presents to the hospital with history of of abdominal pain of 2-3 days"duration Abdominal Pain intermittent associated with nausea and vomiting , no diarrhea .no hematemesis or melena Denies chest pain or shortness of breath Never had similar symptoms in the past, denies previous surgeries CT abdomen and pelvis findings consistent with small bowel obstruction Past History Past Medical History: heart failure, hypertension, hyperlipidemia, other ( dementia) Past Surgical History: No surgical history Social history: full code. denies: smoking, alcohol abuse, prescription drug abuse Family history: hypertension Medications and Allergies Allergies Allergy/AdvReac Type Severity Reaction Status Date / Time No Known Allergies Allergy Verified 12/18/14 17:34 Home Medications Medication Instructions Recorded Confirmed Last Taken Type Aspirin [Aspirin TAB] 325 mg PO QDAY #30 tablet 04/05/17 02/05/18 Unknown Rx AtorvaSTATin [Lipitor] 40 mg PO QHS #30 tablet 04/05/17 02/05/18 Unknown Rx Furosemide [Lasix TAB] 40 mg PO QDAY #30 tablet 04/05/17 02/05/18 Unknown Rx ISOSORBIDE MONOnitrate [Imdur ER] 30 mg PO QDAY #30 tablet 04/05/17 02/05/18 Unknown Rx Ipratropium/Albuterol Sulfate 1 ampul IH TIDRT #30 day 04/05/17 02/05/18 Unknown Rx [DUONEB *Not for PRN Use*] Lisinopril [Zestril TAB] 40 mg PO QDAY #30 tablet 04/05/17 02/05/18 Unknown Rx Potassium Chloride [K-Dur] 20 meq PO QDAY #30 tablet 04/05/17 02/05/18 Unknown Rx Review of Systems Constitutional: anorexia, fatigue, weakness, no weight loss, no weight gain Ears, nose, mouth and throat: no nasal congestion, no nasal discharge Cardiovascular: no chest pain, no orthopnea, no palpitations Gastrointestinal: abdominal pain, nausea, vomiting, no hematemesis, no melena Genitourinary Male: no dysuria, no hematuria Musculoskeletal: no myalgias, no arthritis Integumentary: no rash, no lesions Neurological: no paralysis, no weakness, no numbness, no tingling, no seizures Psychiatric: no anxiety, no depression Endocrine: no cold intolerance, no heat intolerance, no polyphagia, no polydipsia, no polyuria Hematologic/Lymphatic: no easy bruising, no easy bleeding Allergic/Immunologic: no urticaria, no allergic rhinitis Exam - Constitutional Vitals: Temp Pulse Resp BP Pulse Ox 98.3 F 75 15 197/76 96 02/04/18 08:03 02/04/18 08:03 02/04/18 08:03 02/04/18 08:03 02/04/18 08:03 General appearance: Present: no acute distress, well-nourished - EENT Eyes: Present: PERRL, EOM intact - Neck Neck: Present: supple, normal ROM - Respiratory Respiratory effort: normal Respiratory: bilateral: diminished, negative: rales, rhonchi, wheezing - Cardiovascular Rhythm: regular Heart Sounds: Present: S1 & S2 - Extremities Extremities: no ischemia, No edema - Abdominal General gastrointestinal: Present: soft, non-tender, non-distended - Integumentary Integumentary: Present: clear, warm, pale (cachectic) - Musculoskeletal Musculoskeletal: other (minimal communication) - Psychiatric Psychiatric: cooperative, other (minimal communication) - Neurologic Neurologic: moves all extremities Results - Labs CBC & Chem 7: 02/05/18 04:26 02/05/18 04:26 Labs: Abnormal lab results 02/04/18 02/04/18 02/04/18 Range/Units 06:07 06:07 07:53 Hgb 10.9 L (11.8-15.2) gm/dl Hct 33.4 L (35.5-45.6) % Seg Neutrophils % 81.8 H (40.0-70.0) % Glucose 149 H (75-100) mg/dL Urine WBC (Auto) 25.0 H (0.0-6.0) /HPF Assessment and Plan --?small bowel obstruction ; CT abdomen showed ;50 cm segment of small bowel thickening and fluid filled dialtation possible closed loop obstruction --Abdominal pain/possible enteritis Nothing by mouth IV fluids, IV antibiotics Supportive care, surgery consulted --Hypertension; uncontrolled Resume home antihypertensives, when necessary medications --Acute on chronic systolic congestive heart failure; ejection fraction 15-20% Resume home cardiac medications, gentle hydration if needed --Dyslipidemia; hold lipid-lowering medications --Possible UTI; continue empiric antibiotics, follow cultures --DVT prophylaxis; SCDs --Full CODE STATUS Follow surgery evaluation and recommendations Surgery wants stat cardiology clearance for possible surgery Discussed the case with the long wall mining machine helper Dr. Hu and requested a consult Spent 45 minutes coordinating this patient.
[2018-02-04] MEDS ORDERED: MORPHINE IV PRN (09:51)
[2018-02-04] MEDS ORDERED: NACL 0.9% 1000 ML 1,000 ML IV SCH (10:00)
[2018-02-04] MEDS ORDERED: LASIX PO SCH (10:00)
[2018-02-04] MEDS ORDERED: ZESTRIL ONE (10:01)
[2018-02-04] MEDS ORDERED: LASIX ONE (10:05)
[2018-02-04] MEDS: IMDUR PO SCH (10:24)
[2018-02-04] MEDS: LEVAQUIN 500MG/100ML 500 MG/100 ML BAG IV SCH (10:24)
[2018-02-04] MEDS: ZESTRIL PO SCH (10:24)
[2018-02-04] MEDS: PROTONIX IV SCH (10:24)
[2018-02-04] MEDS: LASIX IV SCH (10:26)
[2018-02-04] MEDS ORDERED: COREG ONE (10:27)
[2018-02-04] MEDS: COREG PO SCH ×2 (10:40→23:51)
--- NOTE | 2018-02-04 13:31 | Consultation ---
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 dementia. He has been seen by our practice on prior hospitalizations but has not been compliant with OP follow up. He appears confused on evaluation with no family at bedside and thus most of the HPI is obtained per the chart. Patient presented to the hospital with complaints of "abdominal pain for a couple of days". Pain is in mid upper abdomen, intermittent pain rated 5/10 in intensity occurring for 5-10 minutes at a time that is worse with palpation. Nausea with one episode of vomiting. Denies fever or diarrhea. On evaluation, pt denies any complaints. He reports that he is currently feeling "much better" than he was feeling and that some people came to talk to him and "calm him down". Abdomen CT showed new ascites and approximately 50 cm segment of probable mid small bowel thickening and fluid filled dilatation, possibly representing enteritis or closed-loop obstruction, and thus cardiology has been consulted to provide cardiac risk stratification for possible abdominal surgery. Lexiscan MPI stress test done 03/2017 showed EF 24%, inferolateral fixed defect with mild reversibility, mild anteroapical reversibility. Medical management was recommended at that time given the pt's altered mental status and absence of cardiac complaints. Echo done 03/2017 showed EF 15-20%, mod LVH, abnormal diastolic function, mod to severe AR, LA severely dilated, trace TR, RVSP 35mmHg. Limited echo done 11/2017 showed EF 15-20%, mild LVH, mass visualized on the mitral valve which appears to c/w old healed vegetation. Past History Past Medical History: heart failure, hypertension, hyperlipidemia, other ( dementia) Past Surgical History: No surgical history Social history: full code. denies: smoking, alcohol abuse, prescription drug abuse Family history: hypertension Medications and Allergies Allergies Allergy/AdvReac Type Severity Reaction Status Date / Time No Known Allergies Allergy Verified 12/18/14 17:34 Home Medications Medication Instructions Recorded Confirmed Last Taken Type Aspirin [Aspirin TAB] 325 mg PO QDAY #30 tablet 04/05/17 11/20/17 Unknown Rx AtorvaSTATin [Lipitor] 40 mg PO QHS #30 tablet 04/05/17 11/20/17 Unknown Rx Carvedilol [Coreg] 12.5 mg PO BID #60 tablet 04/05/17 11/20/17 Unknown Rx Docusate Sodium [Colace CAP] 100 mg PO BID #30 day 04/05/17 11/20/17 Unknown Rx Furosemide [Lasix TAB] 40 mg PO QDAY #30 tablet 04/05/17 11/20/17 Unknown Rx ISOSORBIDE MONOnitrate [Imdur ER] 30 mg PO QDAY #30 tablet 04/05/17 11/20/17 Unknown Rx Ipratropium/Albuterol Sulfate 1 ampul IH TIDRT #30 day 04/05/17 11/20/17 Unknown Rx [DUONEB *Not for PRN Use*] Lisinopril [Zestril TAB] 40 mg PO QDAY #30 tablet 04/05/17 11/20/17 Unknown Rx Potassium Chloride [K-Dur] 20 meq PO QDAY #30 tablet 04/05/17 11/20/17 Unknown Rx Carvedilol [Coreg] 12.5 mg PO BID #30 day 11/23/17 11/20/17 Unknown Rx Active Meds: Active Medications Albuterol/Ipratropium (Duoneb *Not For Prn Use*) 1 ampul IH TIDRT [facility] Carvedilol (Coreg) 12.5 mg PO BID [facility] Last Admin: 02/04/18 10:40 Dose: 12.5 mg Furosemide (Lasix) 40 mg IV QDAY [facility] Last Admin: 02/04/18 10:26 Dose: Not Given Levofloxacin/Dextrose (Levaquin 500mg/100ml) 500 mg in 100 mls @ 100 mls/hr IV Q24HR [facility]; Protocol Last Admin: 02/04/18 10:24 Dose: 100 mls/hr Metronidazole (Flagyl 500 Mg/100 Ml) 500 mg in 100 mls @ 100 mls/hr IV Q8HR [facility] Sodium Chloride (Nacl 0.9% 1000 Ml) 1,000 mls @ 50 mls/hr IV DIRECT [facility] Isosorbide Mononitrate (Imdur) 30 mg PO QDAY [facility] Last Admin: 02/04/18 10:24 Dose: Not Given Labetalol HCl (Normodyne) 10 mg IV Q4H PRN PRN Reason: Hypertension Lisinopril (Zestril) 40 mg PO QDAY [facility] Last Admin: 02/04/18 10:24 Dose: 40 mg Morphine Sulfate (Morphine) 1 mg IV Q4H PRN PRN Reason: Pain, Moderate (4-6) Pantoprazole Sodium (Protonix) 40 mg IV QDAY [facility] Last Admin: 02/04/18 10:24 Dose: 40 mg Review of Systems All systems: negative Cardiovascular: no chest pain, no shortness of breath, no dyspnea on exertion Gastrointestinal: abdominal pain Physical Examination Vital Signs BP 212/65 02/04/18 05:24 General appearance: other (lethargic, confused) HEENT: Positive: PERRL Neck: Positive: neck supple, trachea midline Cardiac: Positive: Reg Rate and Rhythm, S1/S2, Audible Murmur, Systolic Murmur Lungs: Positive: Decreased Breath Sounds, Rales (left basilar) Neuro: Positive: Cranial Nerve 2-12 Intact, Other (confused) Abdomen: Positive: Distended. Negative: Active Bowel Sounds, Tender Skin: Negative: Rash, Wound Musculoskeletal: No Fluid Collection, No Pain, Normal Range of Motion Extremities: Absent: edema Results 02/04/18 06:07 02/04/18 06:07 Cardiac Enzymes 02/04/18 Range/Units 06:07 AST 20 (5-40) units/L CBC 02/04/18 Range/Units 06:07 WBC 8.6 (4.5-11.0) K/mm3 RBC 3.72 (3.65-5.03) M/mm3 Hgb 10.9 L (11.8-15.2) gm/dl Hct 33.4 L (35.5-45.6) % Plt Count 208 (140-440) K/mm3 Lymph # 1.2 (1.2-5.4) K/mm3 Davidson # 0.2 (0.0-0.8) K/mm3 Eos # 0.1 (0.0-0.4) K/mm3 Baso # 0.0 (0.0-0.1) K/mm3 Comprehensive Metabolic Panel 02/04/18 Range/Units 06:07 Sodium 138 (137-145) mmol/L Potassium 3.7 (3.6-5.0) mmol/L Chloride 100.7 (98-107) mmol/L Carbon Dioxide 23 (22-30) mmol/L BUN 16 (9-20) mg/dL Creatinine 0.8 (0.8-1.5) mg/dL Glucose 149 H (75-100) mg/dL Calcium 8.9 (8.4-10.2) mg/dL AST 20 (5-40) units/L ALT 10 (7-56) units/L Alkaline Phosphatase 54 (35-129) units/L Total Protein 7.7 (6.3-8.2) g/dL Albumin 3.9 (3.9-5) g/dL - Imaging and Cardiology Echo: report reviewed (11/2017; Limited echo reviewed - EF 15-20%, mild LVH, mass visualized on the mitral valve which appears to c/w vegetation - differential diagnosis includes papillary fibroelastoma of MV, healed vegetation , myxoma, atypical location of the ventricular side or fibroma. 03/2017; 03/2017 showed EF 15-20%, mod LVH, abnormal diastolic function, mod to severe AR, LA severely dilated, trace TR, RVSP 35mmHg. ) EKG: report reviewed, image reviewed EKG interpretations - Telemetry EKG Rhythm: Sinus Rhythm - EKG Sinus rhythms and dysrhythmias: sinus rhythm AV and intraventricular conduction: left bundle branch block, intraventricular conducti Assessment and Plan Assessment: Abdominal pain / ? SBO / ? enteritis Lactic acidosis AMS / ? dementia Chronic combined systolic and diastolic heart failure - no current clinical evidence of acute decompensation CMP - EF 15-20% H/o abnormal stress test Abnormal ECG - IVCD with ? 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 UTI Plan: Pt is currently at high cardiovascular risk for abdominal surgery given his severe cardiomyopathy, valvular disease, history of abnormal stress test and abnormal ECG. However, pt's cardiac status currently appears to be optimized. There are no immediate cardiac contraindications to proceeding with abdominal surgery if it is deemed medically necessary at this time. Resume home cardiac regimen. The patient has been seen in conjunction with Dr. Vallecillo who agrees with the assessment and plan of care.
--- NOTE | 2018-02-04 13:53 | Consultation ---
History of Present Illness Consult date: 02/04/18 Chief complaint: abd pain, n/v - History of present illness History of present illness: 77 yo M with hx of CAD, EF 10-20%, dementia presents to ER with c/o one day hx of abd pain, epigastrum, periumbilical. The pain does not radiate. It was associated with one episode of nonbilious/nonbloody emesis. He is a poor historian and most of the hx is obtained from the chart. The patient states he has never had pain like this in the past. He states he is moving his bowels and passing flatus, and last BM was yesterday and normal. No f/c, cp, sob. His abdominal pain has improved while being in the ER. He has not had any additional emesis. Past History Past Medical History: heart failure, hypertension, hyperlipidemia, other ( dementia) Past Surgical History: No surgical history (patient has midline abdominal scar - cannot elaborate what surgery he had) Social history: full code. denies: smoking, alcohol abuse, prescription drug abuse Family history: hypertension Medications and Allergies Allergies Allergy/AdvReac Type Severity Reaction Status Date / Time No Known Allergies Allergy Verified 12/18/14 17:34 Home Medications Medication Instructions Recorded Confirmed Last Taken Type Aspirin [Aspirin TAB] 325 mg PO QDAY #30 tablet 04/05/17 11/20/17 Unknown Rx AtorvaSTATin [Lipitor] 40 mg PO QHS #30 tablet 04/05/17 11/20/17 Unknown Rx Carvedilol [Coreg] 12.5 mg PO BID #60 tablet 04/05/17 11/20/17 Unknown Rx Docusate Sodium [Colace CAP] 100 mg PO BID #30 day 04/05/17 11/20/17 Unknown Rx Furosemide [Lasix TAB] 40 mg PO QDAY #30 tablet 04/05/17 11/20/17 Unknown Rx ISOSORBIDE MONOnitrate [Imdur ER] 30 mg PO QDAY #30 tablet 04/05/17 11/20/17 Unknown Rx Ipratropium/Albuterol Sulfate 1 ampul IH TIDRT #30 day 04/05/17 11/20/17 Unknown Rx [DUONEB *Not for PRN Use*] Lisinopril [Zestril TAB] 40 mg PO QDAY #30 tablet 04/05/17 11/20/17 Unknown Rx Potassium Chloride [K-Dur] 20 meq PO QDAY #30 tablet 04/05/17 11/20/17 Unknown Rx Carvedilol [Coreg] 12.5 mg PO BID #30 day 11/23/17 11/20/17 Unknown Rx Active Meds: Active Medications Albuterol/Ipratropium (Duoneb *Not For Prn Use*) 1 ampul IH TIDRT [facility] Carvedilol (Coreg) 12.5 mg PO BID [facility] Last Admin: 02/04/18 10:40 Dose: 12.5 mg Furosemide (Lasix) 40 mg IV QDAY [facility] Last Admin: 02/04/18 10:26 Dose: Not Given Levofloxacin/Dextrose (Levaquin 500mg/100ml) 500 mg in 100 mls @ 100 mls/hr IV Q24HR [facility]; Protocol Last Admin: 02/04/18 10:24 Dose: 100 mls/hr Metronidazole (Flagyl 500 Mg/100 Ml) 500 mg in 100 mls @ 100 mls/hr IV Q8HR [facility] Sodium Chloride (Nacl 0.9% 1000 Ml) 1,000 mls @ 50 mls/hr IV DIRECT [facility] Isosorbide Mononitrate (Imdur) 30 mg PO QDAY [facility] Last Admin: 02/04/18 10:24 Dose: Not Given Labetalol HCl (Normodyne) 10 mg IV Q4H PRN PRN Reason: Hypertension Lisinopril (Zestril) 40 mg PO QDAY [facility] Last Admin: 02/04/18 10:24 Dose: 40 mg Morphine Sulfate (Morphine) 1 mg IV Q4H PRN PRN Reason: Pain, Moderate (4-6) Pantoprazole Sodium (Protonix) 40 mg IV QDAY [facility] Last Admin: 02/04/18 10:24 Dose: 40 mg Review of Systems All systems: negative (10 point ROS performed and negative except for that listed in HPI) Exam Vital Signs BP 212/65 02/04/18 05:24 Narrative exam: Gen; AAOx2 (person and place), NAD. Head: b/l temporal wasting ENT: no scleral icterus or conjunctival pallor. Poor dentition CV: S1, S2+ Resp: even and unlabored Abd; soft, distended, NT. well healed midline scar. +tympanic on percussion. No r/r/g Ext: no c/c/e Results - Labs 02/04/18 06:07 02/04/18 06:07 Abnormal lab results 02/04/18 02/04/18 02/04/18 Range/Units 06:07 06:07 07:53 Hgb 10.9 L (11.8-15.2) gm/dl Hct 33.4 L (35.5-45.6) % Seg Neutrophils % 81.8 H (40.0-70.0) % Glucose 149 H (75-100) mg/dL Lactic Acid (0.7-2.0) mmol/L Urine WBC (Auto) 25.0 H (0.0-6.0) /HPF 02/04/18 Range/Units 10:55 Hgb (11.8-15.2) gm/dl Hct (35.5-45.6) % Seg Neutrophils % (40.0-70.0) % Glucose (75-100) mg/dL Lactic Acid 3.50 H* (0.7-2.0) mmol/L Urine WBC (Auto) (0.0-6.0) /HPF Diabetes panel 02/04/18 Range/Units 06:07 Sodium 138 (137-145) mmol/L Potassium 3.7 (3.6-5.0) mmol/L Chloride 100.7 (98-107) mmol/L Carbon Dioxide 23 (22-30) mmol/L BUN 16 (9-20) mg/dL Creatinine 0.8 (0.8-1.5) mg/dL Glucose 149 H (75-100) mg/dL Calcium 8.9 (8.4-10.2) mg/dL AST 20 (5-40) units/L ALT 10 (7-56) units/L Alkaline Phosphatase 54 (35-129) units/L Total Protein 7.7 (6.3-8.2) g/dL Albumin 3.9 (3.9-5) g/dL Calcium panel 02/04/18 Range/Units 06:07 Calcium 8.9 (8.4-10.2) mg/dL Albumin 3.9 (3.9-5) g/dL Pituitary panel 02/04/18 Range/Units 06:07 Sodium 138 (137-145) mmol/L Potassium 3.7 (3.6-5.0) mmol/L Chloride 100.7 (98-107) mmol/L Carbon Dioxide 23 (22-30) mmol/L BUN 16 (9-20) mg/dL Creatinine 0.8 (0.8-1.5) mg/dL Glucose 149 H (75-100) mg/dL Calcium 8.9 (8.4-10.2) mg/dL Adrenal panel 02/04/18 Range/Units 06:07 Sodium 138 (137-145) mmol/L Potassium 3.7 (3.6-5.0) mmol/L Chloride 100.7 (98-107) mmol/L Carbon Dioxide 23 (22-30) mmol/L BUN 16 (9-20) mg/dL Creatinine 0.8 (0.8-1.5) mg/dL Glucose 149 H (75-100) mg/dL Calcium 8.9 (8.4-10.2) mg/dL Total Bilirubin 1.00 (0.1-1.2) mg/dL AST 20 (5-40) units/L ALT 10 (7-56) units/L Alkaline Phosphatase 54 (35-129) units/L Total Protein 7.7 (6.3-8.2) g/dL Albumin 3.9 (3.9-5) g/dL - Imaging CT scan - abdomen: report reviewed, image reviewed CT scan - pelvis: report reviewed, image reviewed Assessment and Plan 77 yo M with 1. abd pain , n/v 2. dilated small bowel, enteritis vs obstruction 3. lactic acidosis 4. CAD, EF 24% 5. dementia Ct scan reviewed with radiologist. There are dilated loops of small bowel present in the mid and lower abdomen, L side of abdomen, with swirling in the mesentery associated with dilated bowel loops. There is ascites. There is thickening of bowel loops. There are decompressed bowel loops in the right abdomen. Plan: 1 CT scan findings concerning for internal hernia and closed loop small bowel obstruction. I discussed this with the patient. The patient understands but his granddaughter is his next of kin and signs his consent forms, and he requested that I call her as well. I discussed the patient's condition, CT findings, and surgical recommendations with the patient's granddaughter Leana Vilchis. I recommend that the patient undergoes exploratory laparotomy to r/o internal hernia, bowel ischemia. The bowel loops are severely dilated and I do not feel I can enter the abdomen safely using a laparoscopic approach. The patient's granddaughter understands but would like to discuss this with other family members prior to consenting. I explained that this is a time sensitive matter and should be addressed as soon as possible. She assured me that she will call back within the hour. 2. cards c/s appreciated. I discussed with the patient and granddaughter that the patient is at high cardiovascular risk for the surgery. They understand. 3. keep NPO 4. gentle IVF 5. hold lasix 6. c/w bblocker 7. prn pain and nausea control 8. DVT ppx 9. NGT if emesis 10. repeat labs in am 11. will await family decision and obtain consent. If they agree to proceed, will place on OR schedule for exlap, possible bowel resection Thank you for this consultation, please call with questions or concerns.
[2018-02-04] MEDS: FLAGYL 500 MG/100 ML 500 MG/100 ML BAG IV SCH ×2 (14:30→23:50)
--- NOTE | 2018-02-04 17:03 | Event Note ---
Date: 02/04/18 I was able to get in touch with Mrs. Vilchis regarding surgery. I also discussed the patient's condition with his daughter. They are agreeable to proceed and will be on their was to the hospital to sign consent. They have designated the patient's son, Ramiro Diez [phone] as the main contact and he will sign the consent. The patient does not have a power of mergers and acquisitions attorney.
[2018-02-04] MEDS ORDERED: NACL 0.9% 1000 ML 1,000 ML ONE (19:56)
[2018-02-04] MEDS: DUONEB *Not for PRN Use IH SCH ×2 (19:58→20:27)
[2018-02-04] MEDS ORDERED: NEO SYNEPHRINE/NS Syringe(OR USE) IV ONE (20:00)
[2018-02-04] MEDS ORDERED: LOPRESSOR IV ONE (20:00)
[2018-02-04] MEDS ORDERED: AMIDATE IV ONE (20:00)
[2018-02-04] MEDS ORDERED: XYLOCAINE MPF 2% ONE (20:00)
[2018-02-04] MEDS ORDERED: QUELICIN ONE (20:02)
[2018-02-04] MEDS ORDERED: ZEMURON IV ONE (20:03)
[2018-02-04] MEDS ORDERED: DILAUDID ONE (20:09)
[2018-02-04] MEDS ORDERED: ePHEDrine 50 MG/5 ML-0.9% NACL IV ONE (20:19)
[2018-02-04] MEDS ORDERED: NACL 0.9% IR ONE (20:48)
[2018-02-04] MEDS ORDERED: ZOFRAN ONE (21:18)
[2018-02-04] MEDS ORDERED: DECADRON ONE (21:18)
[2018-02-04] MEDS ORDERED: BLOXIVERZ ONE (21:25)
[2018-02-04] MEDS ORDERED: ROBINUL ONE (21:25)
--- NOTE | 2018-02-04 21:31 | Post Operative Note ---
Date of procedure: 02/04/18 Pre-op diagnosis: closed loop small bowel obstruction Post-op diagnosis: same Findings: approximately 40 cm of ischemic small bowel, closed loop small bowel obstruction due to band adhesion/internal hernia Procedure: exploratory laparotomy, lysis of adhesions, small bowel resection Anesthesia: BRENNONA Surgeon: TAMEKA DEL TORO Peanut Roaster: LD MONTALVO Estimated blood loss: minimal Pathology: list (small bowel) Specimen disposition: to lab Condition: stable Disposition: PACU
[2018-02-04] MEDS: DILAUDID IV PRN ×2 (22:00→22:07)
[2018-02-04] MEDS ORDERED: DILAUDID IV PRN (22:01)
[2018-02-04] MEDS ORDERED: ZOFRAN IV PRN (22:03)
--- NOTE | 2018-02-04 22:04 | Post Anesthesia Evaluation ---
- Post Anesthesia Evaluation Patient Participated: Yes Airway Patent: Yes Stable Respiratory Function: Yes Nausea/Vomiting: No Temp > 96.8F: Yes Pain Manageable: Yes Adequeate Hydration: Yes Anesthesia Complications: No
--- NOTE | 2018-02-04 22:05 | Anesthesia Day of Surgery ---
Anesthesia Day of Surgery - Day of Surgery Patient Examined: Yes Patient H&P Reviewed: Yes Patient is NPO: Yes
--- NOTE | 2018-02-04 22:06 | Anesthesia Consultation ---
Anesthesia Consult and Med Hx Date of service: 02/04/18 - Airway Anesthetic Teeth Evaluation: Poor ROM Head & Neck: Adequate Mental/Hyoid Distance: Adequate Mallampati Class: Class I Intubation Access Assessment: Good - Pulmonary Exam CTA: Yes - Cardiac Exam Cardiac Exam: RRR - Pre-Operative Health Status ASA Pre-Surgery Classification: ASA3 Proposed Anesthetic Plan: General - Cardiovascular System Hx Hypertension: Yes - Central Nervous System Hx Psychiatric Problems: No - Other Systems Hx Cancer: No
--- NOTE | 2018-02-04 22:08 | Operative Report ---
Operative Report Operative Report: Date of procedure: 02/04/18 Pre-op diagnosis: closed loop small bowel obstruction Post-op diagnosis: same Findings: approximately 40 cm of ischemic small bowel, closed loop small bowel obstruction due to band adhesion/internal hernia Procedure: exploratory laparotomy, lysis of adhesions, small bowel resection Anesthesia: CLARISSA Surgeon: TAMEKA DEL TORO Hearing Screener: LD MONTALVO Estimated blood loss: minimal IVF: 700cc Urine output: 500cc Pathology: list (small bowel) Specimen disposition: to lab Condition: stable Disposition: PACU HPI an indication: The patient is a 77-year-old male with a history of CAD who presented to the emergency room with complaints of abdominal pain, nausea, vomiting 1 day. The patient was found to have a lactic acidosis and a small bowel obstruction on CT scan of abdomen and pelvis. The CT images were concerning for a closed loop bowel obstruction and ischemia of the bowel. All risks, benefits, alternatives to surgical intervention were discussed with the patient as well as his family. All questions were answered and consent was signed for exploratory laparotomy, possible small bowel resection. Procedure in detail: The patient was identified in the preoperative area and taken back to the operating room, he was placed on the operating room table in supine position. After anesthesia was induced, a 16F coude Ace catheter was sterilely placed by myself. The abdomen was then prepped and draped in the usual sterile fashion and a timeout performed. A upper midline incision was made using a 10 blade. Dissection was carried down through the skin and subcutaneous tissue using electrocautery until the fascia was encountered. The fascia was scored with electrocautery and grasped upwards between 2 hemostats and opened. The peritoneum was then grasped between 2 hemostats and opened using a Metzenbaum scissor. The incision was then completed in a cephalad and caudad direction using electrocautery. There was immediate visualization of distended bowel and serosanguineous ascites. Upon exploration, there was a band adhesion, creating an internal hernia which resulted in a closed loop small bowel obstruction. The bowel was eviscerated and the band adhesion lysed using electrocautery. This released the bowel and this was the site of sharp demarcation from dilated to decompressed bowel. The small bowel involved in the internal hernia was ischemic. It was decided to resect this section of small bowel, which was approximately 40 cm. Prior to this, the remainder of the small bowel was ran from the ligament of Treitz to the terminal ileum and there was no other point of obstruction and the remainder of the bowel appeared healthy. A window was made in the mesentery at the planned distal and proximal transection sites. The bowel was transected using a VANESSA 75 mm blue load stapler 2. The mesentery was ligated using the Enseal. The small bowel was passed off the table as a specimen. The small bowel was then aligned in a side- to-side fashion at its antimesenteric borders. A 3-0 silk stay stitch was placed in order to align the bowel. Enterotomies were made using electrocautery and a [id number], functional end-to-end entero-enteric anastomosis was created using a VANESSA 75 mm blue load stapler. The common channel was inspected for hemostasis, which was ensured. The common enterotomy was then closed using a VANESSA 75 mm blue load stapler. The staple line was examined for hemostasis which was ensured. The mesenteric defect was closed with a running 2-0 Vicryl suture. The common channel was palpated and was widely open. The small bowel was placed back into normal anatomic position and the abdomen was irrigated. Hemostasis was ensured. The NG tube was palpated within the stomach in a good position. The fascia was then closed with running looped PDS in the usual fashion. The subcutaneous tissue was irrigated and the skin closed with george. 4 x 4 gauze and ABD pads were used to cover the incision and this was secured with Medipore tape. An abdominal binder was placed. At the end of the case, all sponge, angina, sharp counts were correct 2. The patient was awoken from anesthesia, extubated and taken to PACU in stable condition.
[2018-02-04] MEDS: HEPARIN SUB-Q SCH (23:58)
[2018-02-05 05:08] LABS: Hematocrit 39.6 % (35.5-45.6); Mean Corpuscular HGB Conc 33 % (32-34); Mean Corpuscular Hemoglobin 30 pg (28-32); Mean Corpuscular Volume 91 fl (84-94); Platelet Count 213 K/mm3 (140-440); Red Blood Count 4.34 M/mm3 (3.65-5.03); Red Cell Distribution Width 14.5 % (13.2-15.2)
[2018-02-05] MEDS: FLAGYL 500 MG/100 ML 500 MG/100 ML BAG IV SCH (05:22)
[2018-02-05] MEDS: HEPARIN SUB-Q SCH ×3 (05:25→21:59)
[2018-02-05] MEDS: MORPHINE IV PRN ×2 (05:26→21:58)
[2018-02-05 05:43] LABS: BUN/Creatinine Ratio 25; Blood Urea Nitrogen 20 mg/dL (9-20); Calcium 8.2 mg/dL (8.4-10.2); Hemolysis Index 5
[2018-02-05] MEDS: LASIX IV SCH (09:20)
[2018-02-05] MEDS: PROTONIX IV SCH (09:20)
[2018-02-05] MEDS: NORMODYNE IV PRN ×2 (09:20→22:03)
[2018-02-05] MEDS: LEVAQUIN 500MG/100ML 500 MG/100 ML BAG IV SCH (09:21)
[2018-02-05] MEDS: IMDUR PO SCH (09:21)
[2018-02-05] MEDS: COREG PO SCH (09:21)
[2018-02-05] MEDS: ZESTRIL PO SCH (09:21)
[2018-02-05] MEDS: DUONEB *Not for PRN Use IH SCH ×2 (09:32→20:57)
--- NOTE | 2018-02-05 09:43 | Progress Note ---
Assessment and Plan Assessment and plan: --Closed loop small bowel obstruction ; s/p exploratory laparotomy, lysis of adhesions small bowel resection Continue nothing by mouth, postop care, surgery following --Abdominal pain/possible enteritis Continue current antibiotics, supportive care --Hypertension; uncontrolled Resume home antihypertensives, when necessary medications --Acute on chronic systolic congestive heart failure; ejection fraction 15-20% Resume home cardiac medications, gentle hydration if needed --Dyslipidemia; hold lipid-lowering medications --Possible UTI; continue empiric antibiotics, follow cultures --DVT prophylaxis; SCDs --Full CODE STATUS Follow surgery evaluation and recommendations History Interval history: Patient underwent exploratory laparotomy lysis of adhesions and small bowel resection Yesterday, patient is nothing by mouth status on IV fluids Looks weak and tired, No new events reported Vital signs reviewed Hospitalist Physical - Constitutional Vitals: Temp Pulse Resp BP Pulse Ox 98.1 F 95 H 18 180/82 100 02/05/18 07:59 02/05/18 07:59 02/05/18 07:59 02/05/18 09:21 02/05/18 07:59 General appearance: Present: no acute distress, well-nourished, other (lethargic , confused) - EENT Eyes: Present: PERRL, EOM intact - Neck Neck: Present: supple, normal ROM - Respiratory Respiratory effort: normal Respiratory: bilateral: diminished, negative: rales, rhonchi, wheezing - Cardiovascular Rhythm: regular Heart Sounds: Present: S1 & S2 - Extremities Extremities: no ischemia, No edema - Abdominal General gastrointestinal: soft, tender, non-distended, absent bowel sounds, other (surgical dressing in place) - Integumentary Integumentary: Present: clear, warm - Psychiatric Psychiatric: appropriate mood/affect, memory intact - Neurologic Neurologic: CNII-XII intact, moves all extremities Results - Labs CBC & Chem 7: 02/05/18 04:26 02/05/18 04:26 Labs: Laboratory Last Values WBC 11.7 K/mm3 (4.5-11.0) H 02/05/18 04:26 RBC 4.34 M/mm3 (3.65-5.03) 02/05/18 04:26 Hgb 13.0 gm/dl (11.8-15.2) 02/05/18 04:26 Hct 39.6 % (35.5-45.6) D 02/05/18 04:26 MCV 91 fl (84-94) 02/05/18 04:26 MCH 30 pg (28-32) 02/05/18 04:26 MCHC 33 % (32-34) 02/05/18 04:26 RDW 14.5 % (13.2-15.2) 02/05/18 04:26 Plt Count 213 K/mm3 (140-440) 02/05/18 04:26 Lymph % (Auto) 14.5 % (13.4-35.0) 02/04/18 06:07 [place] % (Auto) 2.9 % (0.0-7.3) 02/04/18 06:07 Eos % (Auto) 0.6 % (0.0-4.3) 02/04/18 06:07 Baso % (Auto) 0.2 % (0.0-1.8) 02/04/18 06:07 Lymph # 1.2 K/mm3 (1.2-5.4) 02/04/18 06:07 [place] # 0.2 K/mm3 (0.0-0.8) 02/04/18 06:07 Eos # 0.1 K/mm3 (0.0-0.4) 02/04/18 06:07 Baso # 0.0 K/mm3 (0.0-0.1) 02/04/18 06:07 Seg Neutrophils % 81.8 % (40.0-70.0) H 02/04/18 06:07 Seg Neutrophils # 7.0 K/mm3 (1.8-7.7) 02/04/18 06:07 Sodium 141 mmol/L (137-145) 02/05/18 04:26 Potassium 4.0 mmol/L (3.6-5.0) 02/05/18 04:26 Chloride 105.8 mmol/L (98-107) 02/05/18 04:26 Carbon Dioxide 23 mmol/L (22-30) 02/05/18 04:26 Anion Gap 16 mmol/L 02/05/18 04:26 BUN 20 mg/dL (9-20) 02/05/18 04:26 Creatinine 0.8 mg/dL (0.8-1.5) 02/05/18 04:26 Estimated GFR > 60 ml/min 02/05/18 04:26 BUN/Creatinine Ratio 25 % 02/05/18 04:26 Glucose 131 mg/dL (75-100) H 02/05/18 04:26 Lactic Acid 1.80 mmol/L (0.7-2.0) 02/05/18 04:26 Calcium 8.2 mg/dL (8.4-10.2) L 02/05/18 04:26 Phosphorus 3.60 mg/dL (2.5-4.5) 02/05/18 04:26 Magnesium 1.70 mg/dL (1.7-2.3) 02/05/18 04:26 Total Bilirubin 1.00 mg/dL (0.1-1.2) 02/04/18 06:07 AST 20 units/L (5-40) 02/04/18 06:07 ALT 10 units/L (7-56) 02/04/18 06:07 Alkaline Phosphatase 54 units/L (35-129) 02/04/18 06:07 Total Protein 7.7 g/dL (6.3-8.2) 02/04/18 06:07 Albumin 3.9 g/dL (3.9-5) 02/04/18 06:07 Albumin/Globulin Ratio 1.0 % 02/04/18 06:07 Lipase 14 units/L (13-60) 02/04/18 06:07 Urine Color Yellow (Yellow) 02/04/18 07:53 Urine Turbidity Hazy (Clear) 02/04/18 07:53 Urine pH 5.0 (5.0-7.0) 02/04/18 07:53 Ur Specific [place] 1.016 (1.003-1.030) 02/04/18 07:53 Urine Protein <15 mg/dl mg/dL (Negative) 02/04/18 07:53 Urine Glucose (UA) Neg mg/dL (Negative) 02/04/18 07:53 Urine Ketones Neg mg/dL (Negative) 02/04/18 07:53 Urine Blood Sm (Negative) 02/04/18 07:53 Urine Nitrite Neg (Negative) 02/04/18 07:53 Urine Bilirubin Neg (Negative) 02/04/18 07:53 Urine Urobilinogen < 2.0 mg/dL (<2.0) 02/04/18 07:53 Ur Leukocyte Esterase Mod (Negative) 02/04/18 07:53 Urine WBC (Auto) 25.0 /HPF (0.0-6.0) H 02/04/18 07:53 Urine RBC (Auto) 3.0 /HPF (0.0-6.0) 02/04/18 07:53 U Epithel Cells (Auto) 1.0 /HPF (0-13.0) 02/04/18 07:53 Urine Bacteria (Auto) 1+ /HPF (Negative) 02/04/18 07:53 Urine Mucus Few /HPF 02/04/18 07:53 Blood Type A POSITIVE 02/04/18 20:08 Antibody Screen Negative 02/04/18 20:08
--- NOTE | 2018-02-05 10:29 | Progress Note ---
Assessment and Plan Assessment: SBO s/p exploratory laparotomy, lysis of adhesions, small bowel resection Lactic acidosis AMS / ? dementia Chronic combined systolic and diastolic heart failure - no current clinical evidence of acute decompensation CMP - EF 15-20% H/o abnormal stress test Abnormal ECG - IVCD with ? 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 UTI Plan: s/p abdominal surgery yesterday. currently stable cardiac status. cont home cardiac regimen once PO intake is resumed. follow surgery recs. The patient has been seen in conjunction with Dr. Vallecillo who agrees with the assessment and plan of care. Subjective Date of service: 02/05/18 Principal diagnosis: SBO Interval history: pt resting comfortably in bed, no current cardiac complaints. s/p abdominal surgery yesterday evening. son at bedside. VSS. Objective Last Vital Signs Temp 98.1 F 02/05/18 07:59 Pulse 95 H 02/05/18 07:59 Resp 18 02/05/18 07:59 BP 180/82 02/05/18 09:21 Pulse Ox 100 02/05/18 07:59 - Physical Examination HEENT: Positive: PERRL Neck: Positive: neck supple, trachea midline Cardiac: Positive: Reg Rate and Rhythm, S1/S2 Lungs: Positive: clear to auscultation Neuro: Positive: Cranial Nerve 2-12 Intact, Other (confused) Abdomen: Positive: Distended, Other (abdominal surgical site). Negative: Active Bowel Sounds, Tender Skin: Positive: Other (abdominal surgical site). Negative: Rash Musculoskeletal: No Fluid Collection, No Pain, Normal Range of Motion Extremities: Absent: edema - Labs and Meds CBC 02/05/18 Range/Units 04:26 WBC 11.7 H (4.5-11.0) K/mm3 RBC 4.34 (3.65-5.03) M/mm3 Hgb 13.0 (11.8-15.2) gm/dl Hct 39.6 D (35.5-45.6) % Plt Count 213 (140-440) K/mm3 Comprehensive Metabolic Panel 02/05/18 Range/Units 04:26 Sodium 141 (137-145) mmol/L Potassium 4.0 (3.6-5.0) mmol/L Chloride 105.8 (98-107) mmol/L Carbon Dioxide 23 (22-30) mmol/L BUN 20 (9-20) mg/dL Creatinine 0.8 (0.8-1.5) mg/dL Glucose 131 H (75-100) mg/dL Calcium 8.2 L (8.4-10.2) mg/dL - Imaging and Cardiology EKG: report reviewed, image reviewed Echo: report reviewed (11/2017; Limited echo reviewed - EF 15-20%, mild LVH, mass visualized on the mitral valve which appears to c/w vegetation - differential diagnosis includes papillary fibroelastoma of MV, healed vegetation , myxoma, atypical location of the ventricular side or fibroma. 03/2017; 03/2017 showed EF 15-20%, mod LVH, abnormal diastolic function, mod to severe AR, LA severely dilated, trace TR, RVSP 35mmHg. ) - Telemetry EKG Rhythm: Sinus Rhythm - EKG Sinus rhythms and dysrhythmias: sinus rhythm AV and intraventricular conduction: left bundle branch block, intraventricular conducti
--- NOTE | 2018-02-05 14:53 | Progress Note ---
Assessment and Plan 77 yo M s/p exploratory laparotomy, lysis of adhesions, small bowel resection POD 1 1. ischemic bowel 2. sepsis 2/2 #1 3. UTI Plan: 1. NGT to LCWS 2. IVF - change to maintenance 3. IS taught and encouraged 4. NPO 5. DVT ppx 6. c/w levaquin for UTI, dc flagyl 7. prn pain control 8. await bowel function 9. OOB, ambulate, PT 10. path pending Please call with questions or concerns. Subjective Date of service: 02/05/18 Narrative: Pt seen and examined. No complaints. No n/v. No f/c. States he has no abdominal pain. PT saw this am and got patient OOB. Objective Vital Signs - 12hr 02/05/18 02/05/18 02/05/18 03:27 03:37 07:59 Temperature 97.4 F L 98.6 F 98.1 F Pulse Rate 73 89 95 H Respiratory 20 18 18 Rate Blood Pressure 186/86 102/59 180/82 Blood Pressure 186/86 [Left] O2 Sat by Pulse 100 99 100 Oximetry 02/05/18 02/05/18 09:20 09:21 Temperature Pulse Rate Respiratory Rate Blood Pressure 180/82 180/82 Blood Pressure [Left] O2 Sat by Pulse Oximetry - General physical appearance Narrative Exam: Gen: awake and alert. NAD NGT - minimal thick brown drainage CV: S1, S2+ Resp: even and unlabored. Poor effort Abd: soft, ND, NT. dressing c/d/i. Abdominal binder in place : watkins with clear yellow urine Ext: no c/c/e - Labs 02/05/18 04:26 02/05/18 04:26 Diabetes panel 02/05/18 Range/Units 04:26 Sodium 141 (137-145) mmol/L Potassium 4.0 (3.6-5.0) mmol/L Chloride 105.8 (98-107) mmol/L Carbon Dioxide 23 (22-30) mmol/L BUN 20 (9-20) mg/dL Creatinine 0.8 (0.8-1.5) mg/dL Glucose 131 H (75-100) mg/dL Calcium 8.2 L (8.4-10.2) mg/dL Calcium panel 02/05/18 Range/Units 04:26 Calcium 8.2 L (8.4-10.2) mg/dL Phosphorus 3.60 (2.5-4.5) mg/dL Pituitary panel 02/05/18 Range/Units 04:26 Sodium 141 (137-145) mmol/L Potassium 4.0 (3.6-5.0) mmol/L Chloride 105.8 (98-107) mmol/L Carbon Dioxide 23 (22-30) mmol/L BUN 20 (9-20) mg/dL Creatinine 0.8 (0.8-1.5) mg/dL Glucose 131 H (75-100) mg/dL Calcium 8.2 L (8.4-10.2) mg/dL Adrenal panel 02/05/18 Range/Units 04:26 Sodium 141 (137-145) mmol/L Potassium 4.0 (3.6-5.0) mmol/L Chloride 105.8 (98-107) mmol/L Carbon Dioxide 23 (22-30) mmol/L BUN 20 (9-20) mg/dL Creatinine 0.8 (0.8-1.5) mg/dL Glucose 131 H (75-100) mg/dL Calcium 8.2 L (8.4-10.2) mg/dL
[2018-02-05] MEDS: D5/0.45NS 1,000 ML IV SCH (16:20)
[2018-02-06] MEDS: DUONEB *Not for PRN Use IH SCH ×4 (02:25→21:18)
[2018-02-06] MEDS: COREG PO SCH ×2 (04:50→10:26)
[2018-02-06] MEDS: NORMODYNE IV PRN ×2 (06:09→10:27)
[2018-02-06] MEDS: HEPARIN SUB-Q SCH ×3 (06:10→21:31)
[2018-02-06] MEDS: D5/0.45NS 1,000 ML IV SCH ×2 (06:19→19:58)
[2018-02-06 06:47] LABS: Basophils % (Auto) 0.4 % (0.0-1.8); Eosinophils # (Auto) 0.1 K/mm3 (0.0-0.4); Eosinophils % (Auto) 1.3 % (0.0-4.3); Hematocrit 34.3 % (35.5-45.6); Hemoglobin 11.5 gm/dl (11.8-15.2); Mean Corpuscular HGB Conc 33 % (32-34); Mean Corpuscular Hemoglobin 30 pg (28-32); Mean Corpuscular Volume 90 fl (84-94); Monocytes # (Auto) 0.6 K/mm3 (0.0-0.8); Monocytes % (Auto) 6.1 % (0.0-7.3); Platelet Count 188 K/mm3 (140-440); Red Blood Count 3.81 M/mm3 (3.65-5.03); Red Cell Distribution Width 14.8 % (13.2-15.2)
[2018-02-06 07:16] LABS: Alanine Aminotransferase 7 units/L (7-56); BUN/Creatinine Ratio 24; Blood Urea Nitrogen 19 mg/dL (9-20); Calcium 8.2 mg/dL (8.4-10.2); Hemolysis Index 2
--- NOTE | 2018-02-06 10:14 | Progress Note ---
Assessment and Plan Assessment: SBO s/p exploratory laparotomy, lysis of adhesions, small bowel resection Lactic acidosis / ? sepsis AMS / ? dementia Chronic combined systolic and diastolic heart failure - no current clinical evidence of acute decompensation CMP - EF 15-20% NSVT H/o abnormal stress test Abnormal ECG - IVCD with ? 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 Plan for conversion back to home cardiac regimen once PO intake is resumed. The patient has been seen in conjunction with Dr. King who agrees with the assessment and plan of care. Subjective Date of service: 02/06/18 Principal diagnosis: SBO Interval history: pt resting comfortably in bed, no current cardiac complaints. s/p abdominal surgery yesterday evening. no family at bedside. VSS. tele reviewed - pt had 6 beat NSVT yesterday evening. Objective Last Vital Signs Temp 98.7 F 02/06/18 07:30 Pulse 67 02/06/18 07:30 Resp 20 02/06/18 07:30 BP 182/74 02/06/18 07:30 Pulse Ox 99 02/06/18 07:30 - Physical Examination General: No Apparent Distress HEENT: Positive: PERRL Neck: Positive: neck supple, trachea midline Cardiac: Positive: Reg Rate and Rhythm, S1/S2 Lungs: Positive: Decreased Breath Sounds Neuro: Positive: Cranial Nerve 2-12 Intact, Other (confused) Abdomen: Positive: Distended, Other (abdominal surgical site). Negative: Active Bowel Sounds, Tender Skin: Positive: Other (abdominal surgical site). Negative: Rash Musculoskeletal: No Fluid Collection, No Pain, Normal Range of Motion Extremities: Absent: edema - Labs and Meds Cardiac Enzymes 02/06/18 Range/Units 06:23 AST 15 (5-40) units/L CBC 02/06/18 Range/Units 06:23 WBC 10.2 (4.5-11.0) K/mm3 RBC 3.81 (3.65-5.03) M/mm3 Hgb 11.5 L (11.8-15.2) gm/dl Hct 34.3 L (35.5-45.6) % Plt Count 188 (140-440) K/mm3 Lymph # 1.0 L (1.2-5.4) K/mm3 [place] # 0.6 (0.0-0.8) K/mm3 Eos # 0.1 (0.0-0.4) K/mm3 Baso # 0.0 (0.0-0.1) K/mm3 Comprehensive Metabolic Panel 02/06/18 Range/Units 06:23 Sodium 137 (137-145) mmol/L Potassium 3.7 (3.6-5.0) mmol/L Chloride 100.5 (98-107) mmol/L Carbon Dioxide 25 (22-30) mmol/L BUN 19 (9-20) mg/dL Creatinine 0.8 (0.8-1.5) mg/dL Glucose 112 H (75-100) mg/dL Calcium 8.2 L (8.4-10.2) mg/dL AST 15 (5-40) units/L ALT 7 (7-56) units/L Alkaline Phosphatase 47 (35-129) units/L Total Protein 6.6 (6.3-8.2) g/dL Albumin 3.0 L (3.9-5) g/dL - Imaging and Cardiology EKG: report reviewed, image reviewed Echo: report reviewed (11/2017; Limited echo reviewed - EF 15-20%, mild LVH, mass visualized on the mitral valve which appears to c/w vegetation - differential diagnosis includes papillary fibroelastoma of MV, healed vegetation , myxoma, atypical location of the ventricular side or fibroma. 03/2017; 03/2017 showed EF 15-20%, mod LVH, abnormal diastolic function, mod to severe AR, LA severely dilated, trace TR, RVSP 35mmHg. ) - EKG Sinus rhythms and dysrhythmias: sinus rhythm AV and intraventricular conduction: left bundle branch block, intraventricular conducti
[2018-02-06] MEDS ORDERED: APRESOLINE IV PRN (10:15)
[2018-02-06] MEDS: MORPHINE IV PRN (10:25)
[2018-02-06] MEDS: LEVAQUIN 500MG/100ML 500 MG/100 ML BAG IV SCH (10:26)
[2018-02-06] MEDS: PROTONIX IV SCH (10:26)
[2018-02-06] MEDS: LASIX IV SCH (10:26)
[2018-02-06] MEDS: NITRO DUR TD SCH (13:46)
--- NOTE | 2018-02-06 17:53 | Progress Note ---
Assessment and Plan Assessment and plan: --Closed loop small bowel obstruction ; s/p exploratory laparotomy, lysis of adhesions, per surgery PT as tolerated --Hypertension; uncontrolled Resume home antihypertensives, when necessary medications --Acute on chronic systolic congestive heart failure; ejection fraction 15-20% Continue cardiac medications, gentle hydration if needed --Dyslipidemia; hold lipid-lowering medications --Possible UTI; continue Levaquin, follow cultures --DVT prophylaxis; SCDs --Full CODE STATUS Follow surgery evaluation and recommendations History Interval history: Patient seen and examined medical records reviewed Feels slightly better complains of some pain in the abdomen No new events reported by the nursing Vital signs reviewed Hospitalist Physical - Constitutional Vitals: Temp Pulse Resp BP Pulse Ox 98.1 F 89 20 126/62 100 02/06/18 11:30 02/06/18 17:48 02/06/18 15:40 02/06/18 17:48 02/06/18 15:40 General appearance: Present: no acute distress, cachectic, disheveled - EENT Eyes: Present: PERRL, EOM intact - Neck Neck: Present: supple, normal ROM - Respiratory Respiratory effort: normal Respiratory: bilateral: diminished, negative: rales, rhonchi, wheezing - Cardiovascular Rhythm: regular Heart Sounds: Present: S1 & S2 - Extremities Extremities: no ischemia, No edema - Abdominal General gastrointestinal: soft, non-tender, other (dressing in place) - Integumentary Integumentary: Present: clear, warm - Psychiatric Psychiatric: appropriate mood/affect, cooperative - Neurologic Neurologic: moves all extremities Results - Labs CBC & Chem 7: 02/06/18 06:23 02/06/18 06:23 Labs: Laboratory Last Values WBC 10.2 K/mm3 (4.5-11.0) 02/06/18 06:23 RBC 3.81 M/mm3 (3.65-5.03) 02/06/18 06:23 Hgb 11.5 gm/dl (11.8-15.2) L 02/06/18 06:23 Hct 34.3 % (35.5-45.6) L 02/06/18 06:23 MCV 90 fl (84-94) 02/06/18 06:23 MCH 30 pg (28-32) 02/06/18 06:23 MCHC 33 % (32-34) 02/06/18 06:23 RDW 14.8 % (13.2-15.2) 02/06/18 06:23 Plt Count 188 K/mm3 (140-440) 02/06/18 06:23 Lymph % (Auto) 10.0 % (13.4-35.0) L 02/06/18 06:23 [place] % (Auto) 6.1 % (0.0-7.3) 02/06/18 06:23 Eos % (Auto) 1.3 % (0.0-4.3) 02/06/18 06:23 Baso % (Auto) 0.4 % (0.0-1.8) 02/06/18 06:23 Lymph # 1.0 K/mm3 (1.2-5.4) L 02/06/18 06:23 [place] # 0.6 K/mm3 (0.0-0.8) 02/06/18 06:23 Eos # 0.1 K/mm3 (0.0-0.4) 02/06/18 06:23 Baso # 0.0 K/mm3 (0.0-0.1) 02/06/18 06:23 Seg Neutrophils % 82.2 % (40.0-70.0) H 02/06/18 06:23 Seg Neutrophils # 8.3 K/mm3 (1.8-7.7) H 02/06/18 06:23 Sodium 137 mmol/L (137-145) 02/06/18 06:23 Potassium 3.7 mmol/L (3.6-5.0) 02/06/18 06:23 Chloride 100.5 mmol/L (98-107) 02/06/18 06:23 Carbon Dioxide 25 mmol/L (22-30) 02/06/18 06:23 Anion Gap 15 mmol/L 02/06/18 06:23 BUN 19 mg/dL (9-20) 02/06/18 06:23 Creatinine 0.8 mg/dL (0.8-1.5) 02/06/18 06:23 Estimated GFR > 60 ml/min 02/06/18 06:23 BUN/Creatinine Ratio 24 % 02/06/18 06:23 Glucose 112 mg/dL (75-100) H 02/06/18 06:23 Lactic Acid 1.80 mmol/L (0.7-2.0) 02/05/18 04:26 Calcium 8.2 mg/dL (8.4-10.2) L 02/06/18 06:23 Phosphorus 2.80 mg/dL (2.5-4.5) D 02/06/18 06:23 Magnesium 1.70 mg/dL (1.7-2.3) 02/06/18 06:23 Total Bilirubin 1.00 mg/dL (0.1-1.2) 02/06/18 06:23 AST 15 units/L (5-40) 02/06/18 06:23 ALT 7 units/L (7-56) 02/06/18 06:23 Alkaline Phosphatase 47 units/L (35-129) 02/06/18 06:23 Total Protein 6.6 g/dL (6.3-8.2) 02/06/18 06:23 Albumin 3.0 g/dL (3.9-5) L 02/06/18 06:23 Albumin/Globulin Ratio 0.8 % 02/06/18 06:23 Lipase 14 units/L (13-60) 02/04/18 06:07 Urine Color Yellow (Yellow) 02/04/18 07:53 Urine Turbidity Hazy (Clear) 02/04/18 07:53 Urine pH 5.0 (5.0-7.0) 02/04/18 07:53 Ur Specific [place] 1.016 (1.003-1.030) 02/04/18 07:53 Urine Protein <15 mg/dl mg/dL (Negative) 02/04/18 07:53 Urine Glucose (UA) Neg mg/dL (Negative) 02/04/18 07:53 Urine Ketones Neg mg/dL (Negative) 02/04/18 07:53 Urine Blood Sm (Negative) 02/04/18 07:53 Urine Nitrite Neg (Negative) 02/04/18 07:53 Urine Bilirubin Neg (Negative) 02/04/18 07:53 Urine Urobilinogen < 2.0 mg/dL (<2.0) 02/04/18 07:53 Ur Leukocyte Esterase Mod (Negative) 02/04/18 07:53 Urine WBC (Auto) 25.0 /HPF (0.0-6.0) H 06/18/18 07:53 Urine RBC (Auto) 3.0 /HPF (0.0-6.0) 02/04/18 07:53 U Epithel Cells (Auto) 1.0 /HPF (0-13.0) 02/04/18 07:53 Urine Bacteria (Auto) 1+ /HPF (Negative) 02/04/18 07:53 Urine Mucus Few /HPF 02/04/18 07:53 Blood Type A POSITIVE 02/04/18 20:08 Antibody Screen Negative 02/04/18 20:08
--- NOTE | 2018-02-06 18:09 | Progress Note ---
Assessment and Plan 77 yo M s/p exploratory laparotomy, lysis of adhesions, small bowel resection POD 2 1. ischemic bowel 2. sepsis 2/2 #1 3. UTI Plan: 1. NGT to LCWS 2. IVF - maintenance fluids 3. IS encouraged 4. NPO 5. DVT ppx 6. c/w levaquin for UTI 7. prn pain control 8. await bowel function 9. OOB, ambulate, PT 10. path pending Please call with questions or concerns. Subjective Date of service: 02/06/18 Narrative: Pt seen and examined. He c/o mild abdominal pain. No n/v, f/c. He has not had flatus or BM. Objective Vital Signs - 12hr 02/06/18 02/06/18 02/06/18 06:09 07:30 10:00 Temperature 98.7 F Pulse Rate 84 67 Pulse Rate [ Bilateral Throughout] Respiratory 20 Rate Respiratory Rate [Bilateral Throughout] Respiratory 16 Rate [denies] Blood Pressure 190/85 Blood Pressure 182/74 [Left] O2 Sat by Pulse 99 Oximetry 02/06/18 02/06/18 02/06/18 10:19 10:25 10:26 Temperature Pulse Rate 79 79 Pulse Rate [ Bilateral Throughout] Respiratory 16 20 Rate Respiratory Rate [Bilateral Throughout] Respiratory Rate [denies] Blood Pressure 177/72 Blood Pressure 177/72 [Left] O2 Sat by Pulse 99 Oximetry 02/06/18 02/06/18 02/06/18 10:27 11:30 13:46 Temperature 98.1 F Pulse Rate 79 76 76 Pulse Rate [ Bilateral Throughout] Respiratory 18 Rate Respiratory Rate [Bilateral Throughout] Respiratory Rate [denies] Blood Pressure 177/72 139/66 Blood Pressure 139/66 [Left] O2 Sat by Pulse 99 Oximetry 02/06/18 02/06/18 02/06/18 14:37 14:41 14:47 Temperature Pulse Rate Pulse Rate [ 78 81 Bilateral Throughout] Respiratory Rate Respiratory 20 19 Rate [Bilateral Throughout] Respiratory Rate [denies] Blood Pressure Blood Pressure [Left] O2 Sat by Pulse 98 Oximetry 02/06/18 02/06/18 02/06/18 15:40 16:02 17:48 Temperature Pulse Rate 99 H 99 H 89 Pulse Rate [ Bilateral Throughout] Respiratory 20 Rate Respiratory Rate [Bilateral Throughout] Respiratory Rate [denies] Blood Pressure 211/91 Blood Pressure 211/91 126/62 [Left] O2 Sat by Pulse 100 Oximetry - General physical appearance Narrative Exam: Gen: Awake and alert. NAD ENT: NGT with thick brown drainage CV: S1, S2+ Resp: even and unlabored Abd: soft, mildly distended, NT. dressing removed, incision c/d/i. Abdominal binder placed Ext: no c/c/e - Labs 02/06/18 06:23 02/06/18 06:23 Diabetes panel 02/06/18 Range/Units 06:23 Sodium 137 (137-145) mmol/L Potassium 3.7 (3.6-5.0) mmol/L Chloride 100.5 (98-107) mmol/L Carbon Dioxide 25 (22-30) mmol/L BUN 19 (9-20) mg/dL Creatinine 0.8 (0.8-1.5) mg/dL Glucose 112 H (75-100) mg/dL Calcium 8.2 L (8.4-10.2) mg/dL AST 15 (5-40) units/L ALT 7 (7-56) units/L Alkaline Phosphatase 47 (35-129) units/L Total Protein 6.6 (6.3-8.2) g/dL Albumin 3.0 L (3.9-5) g/dL Calcium panel 02/06/18 Range/Units 06:23 Calcium 8.2 L (8.4-10.2) mg/dL Phosphorus 2.80 D (2.5-4.5) mg/dL Albumin 3.0 L (3.9-5) g/dL Pituitary panel 02/06/18 Range/Units 06:23 Sodium 137 (137-145) mmol/L Potassium 3.7 (3.6-5.0) mmol/L Chloride 100.5 (98-107) mmol/L Carbon Dioxide 25 (22-30) mmol/L BUN 19 (9-20) mg/dL Creatinine 0.8 (0.8-1.5) mg/dL Glucose 112 H (75-100) mg/dL Calcium 8.2 L (8.4-10.2) mg/dL Adrenal panel 02/06/18 Range/Units 06:23 Sodium 137 (137-145) mmol/L Potassium 3.7 (3.6-5.0) mmol/L Chloride 100.5 (98-107) mmol/L Carbon Dioxide 25 (22-30) mmol/L BUN 19 (9-20) mg/dL Creatinine 0.8 (0.8-1.5) mg/dL Glucose 112 H (75-100) mg/dL Calcium 8.2 L (8.4-10.2) mg/dL Total Bilirubin 1.00 (0.1-1.2) mg/dL AST 15 (5-40) units/L ALT 7 (7-56) units/L Alkaline Phosphatase 47 (35-129) units/L Total Protein 6.6 (6.3-8.2) g/dL Albumin 3.0 L (3.9-5) g/dL
[2018-02-06] MEDS: DILAUDID IV PRN (21:31)
[2018-02-07] MEDS: COREG PO SCH (00:05)
[2018-02-07 05:13] LABS: BUN/Creatinine Ratio 21; Blood Urea Nitrogen 17 mg/dL (9-20); Calcium 8.3 mg/dL (8.4-10.2); Hemolysis Index 1
[2018-02-07] MEDS: HEPARIN SUB-Q SCH ×3 (05:19→22:30)
[2018-02-07] MEDS: NITRO DUR TD SCH (05:21)
[2018-02-07] MEDS ORDERED: MAGNESIUM SULFATE 1 GM in NACL 0.9% 50 ML IV ONE (09:30)
--- NOTE | 2018-02-07 09:45 | Progress Note ---
Assessment and Plan Assessment: SBO s/p exploratory laparotomy, lysis of adhesions, small bowel resection Lactic acidosis / ? sepsis AMS / ? 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 Follow surgery recs. The patient has been seen in conjunction with Dr. King who agrees with the assessment and plan of care. Subjective Date of service: 02/07/18 Principal diagnosis: SBO Interval history: pt resting comfortably in bed, no current cardiac complaints. NGT in place to suction. no family at bedside. VSS. tele reviewed - some brief bouts of sinus tachycardia noted overnight, no VT noted overnight. Objective Last Vital Signs Temp 97.2 F L 02/07/18 07:41 Pulse 78 02/07/18 07:41 Resp 18 02/07/18 07:41 BP 146/63 02/07/18 07:41 Pulse Ox 100 02/07/18 07:41 - Physical Examination General: No Apparent Distress HEENT: Positive: PERRL Neck: Positive: neck supple, trachea midline Cardiac: Positive: Reg Rate and Rhythm, S1/S2 Lungs: Positive: clear to auscultation Neuro: Positive: Cranial Nerve 2-12 Intact, Other (confused) Abdomen: Positive: Distended, Other (abdominal surgical site). Negative: Active Bowel Sounds, Tender Skin: Positive: Other (abdominal surgical site). Negative: Rash Musculoskeletal: No Fluid Collection, No Pain, Normal Range of Motion Extremities: Absent: edema - Labs and Meds Comprehensive Metabolic Panel 02/07/18 Range/Units 04:26 Sodium 134 L (137-145) mmol/L Potassium 3.5 L (3.6-5.0) mmol/L Chloride 95.3 L (98-107) mmol/L Carbon Dioxide 29 (22-30) mmol/L BUN 17 (9-20) mg/dL Creatinine 0.8 (0.8-1.5) mg/dL Glucose 111 H (75-100) mg/dL Calcium 8.3 L (8.4-10.2) mg/dL - Imaging and Cardiology EKG: report reviewed, image reviewed Echo: report reviewed (11/2017; Limited echo reviewed - EF 15-20%, mild LVH, mass visualized on the mitral valve which appears to c/w vegetation - differential diagnosis includes papillary fibroelastoma of MV, healed vegetation , myxoma, atypical location of the ventricular side or fibroma. 03/2017; 03/2017 showed EF 15-20%, mod LVH, abnormal diastolic function, mod to severe AR, LA severely dilated, trace TR, RVSP 35mmHg. ) - EKG Sinus rhythms and dysrhythmias: sinus rhythm AV and intraventricular conduction: left bundle branch block, intraventricular conducti
[2018-02-07] MEDS: LEVAQUIN 500MG/100ML 500 MG/100 ML BAG IV SCH (10:05)
[2018-02-07] MEDS: LASIX IV SCH (11:03)
[2018-02-07] MEDS: PROTONIX IV SCH (11:04)
[2018-02-07] MEDS: KCL 10MEQ/100ML 10 MEQ/100 ML BAG IV SCH ×3 (11:07→14:09)
[2018-02-07] MEDS: DUONEB *Not for PRN Use IH SCH ×2 (11:34→16:06)
--- NOTE | 2018-02-07 13:54 | Progress Note ---
Assessment and Plan 77 yo M s/p exploratory laparotomy, lysis of adhesions, small bowel resection POD 3 1. ischemic bowel 2. sepsis 2/2 #1 3. UTI Plan: 1. NGT to LCWS 2. IVF - gentle maintenance fluids 3. IS encouraged 4. NPO 5. DVT ppx 6. c/w levaquin for UTI 7. prn pain control 8. await bowel function 9. OOB, ambulate, PT 10. path pending 11. replace lytes, recheck BMP in am Please call with questions or concerns. Subjective Date of service: 02/07/18 Narrative: Pt seen and examined. He is sitting in the recliner. No overnight events. No f/ c. He states he has some abdominal pain but controlled. Overall, he states he feels well. NO flatus or BM. Objective Vital Signs - 12hr 02/07/18 02/07/18 02/07/18 05:07 05:21 07:41 Temperature 97.9 F 97.2 F L Pulse Rate 80 80 78 Pulse Rate [ Anterior Bilateral Upper Lobe] Pulse Rate [ Bilateral Throughout] Respiratory 17 18 Rate Respiratory Rate [Anterior Bilateral Upper Lobe] Respiratory Rate [Bilateral Throughout] Blood Pressure 154/69 154/69 146/63 O2 Sat by Pulse 100 100 Oximetry 02/07/18 02/07/18 02/07/18 10:00 11:35 11:44 Temperature Pulse Rate Pulse Rate [ 84 86 Anterior Bilateral Upper Lobe] Pulse Rate [ 84 Bilateral Throughout] Respiratory Rate Respiratory 16 18 Rate [Anterior Bilateral Upper Lobe] Respiratory 16 Rate [Bilateral Throughout] Blood Pressure O2 Sat by Pulse 97 Oximetry - General physical appearance Narrative Exam: Gen: Awake and alert. NAD ENT: NGT with thick brown drainage CV: S1, S2+ Resp: even and unlabored Abd: soft, mildly distended, NT. Ext: no c/c/e - Labs 02/06/18 06:23 02/07/18 04:26 Diabetes panel 02/07/18 Range/Units 04:26 Sodium 134 L (137-145) mmol/L Potassium 3.5 L (3.6-5.0) mmol/L Chloride 95.3 L (98-107) mmol/L Carbon Dioxide 29 (22-30) mmol/L BUN 17 (9-20) mg/dL Creatinine 0.8 (0.8-1.5) mg/dL Glucose 111 H (75-100) mg/dL Calcium 8.3 L (8.4-10.2) mg/dL Calcium panel 02/07/18 Range/Units 04:26 Calcium 8.3 L (8.4-10.2) mg/dL Pituitary panel 02/07/18 Range/Units 04:26 Sodium 134 L (137-145) mmol/L Potassium 3.5 L (3.6-5.0) mmol/L Chloride 95.3 L (98-107) mmol/L Carbon Dioxide 29 (22-30) mmol/L BUN 17 (9-20) mg/dL Creatinine 0.8 (0.8-1.5) mg/dL Glucose 111 H (75-100) mg/dL Calcium 8.3 L (8.4-10.2) mg/dL Adrenal panel 02/07/18 Range/Units 04:26 Sodium 134 L (137-145) mmol/L Potassium 3.5 L (3.6-5.0) mmol/L Chloride 95.3 L (98-107) mmol/L Carbon Dioxide 29 (22-30) mmol/L BUN 17 (9-20) mg/dL Creatinine 0.8 (0.8-1.5) mg/dL Glucose 111 H (75-100) mg/dL Calcium 8.3 L (8.4-10.2) mg/dL
--- NOTE | 2018-02-07 19:57 | Progress Note ---
Assessment and Plan Assessment and plan: --Closed loop small bowel obstruction ; ischemic bowel s/p exploratory laparotomy, lysis of adhesions, post op care per surgery PT as tolerated --Hypertension; well controlled on antihypertensives --Acute on chronic systolic congestive heart failure; ejection fraction 15-20% Continue anti-failure medications, neurology following --Dyslipidemia; hold lipid-lowering medications --Possible UTI; continue Levaquin, follow cultures --DVT prophylaxis; SCDs --Full CODE STATUS Plan of care is reviewed with the patient and the family member at the bedside History Interval history: Patient seen and examined medical records reviewed Patient feels slightly better No new complaints Vital signs reviewed Hospitalist Physical - Constitutional Vitals: Temp Pulse Resp BP Pulse Ox 97.8 F 85 20 155/75 99 02/07/18 14:47 02/07/18 16:15 02/07/18 16:15 02/07/18 14:47 02/07/18 14:45 General appearance: Present: no acute distress, cachectic, disheveled - EENT Eyes: Present: PERRL, EOM intact - Neck Neck: Present: supple, normal ROM - Respiratory Respiratory effort: normal Respiratory: right: wheezing, bilateral: diminished, rhonchi, negative: rales - Cardiovascular Rhythm: regular Heart Sounds: Present: S1 & S2 - Extremities Extremities: no ischemia, No edema - Abdominal General gastrointestinal: soft, non-tender, non-distended, hypoactive bowel sounds - Integumentary Integumentary: Present: clear, warm - Psychiatric Psychiatric: appropriate mood/affect - Neurologic Neurologic: CNII-XII intact, moves all extremities Results - Labs CBC & Chem 7: 02/06/18 06:23 02/07/18 04:26 Labs: Laboratory Last Values WBC 10.2 K/mm3 (4.5-11.0) 02/06/18 06:23 RBC 3.81 M/mm3 (3.65-5.03) 02/06/18 06:23 Hgb 11.5 gm/dl (11.8-15.2) L 02/06/18 06:23 Hct 34.3 % (35.5-45.6) L 02/06/18 06:23 MCV 90 fl (84-94) 02/06/18 06:23 MCH 30 pg (28-32) 02/06/18 06:23 MCHC 33 % (32-34) 02/06/18 06:23 RDW 14.8 % (13.2-15.2) 02/06/18 06:23 Plt Count 188 K/mm3 (140-440) 02/06/18 06:23 Lymph % (Auto) 10.0 % (13.4-35.0) L 02/06/18 06:23 [place] % (Auto) 6.1 % (0.0-7.3) 02/06/18 06:23 Eos % (Auto) 1.3 % (0.0-4.3) 02/06/18 06:23 Baso % (Auto) 0.4 % (0.0-1.8) 02/06/18 06:23 Lymph # 1.0 K/mm3 (1.2-5.4) L 02/06/18 06:23 [place] # 0.6 K/mm3 (0.0-0.8) 02/06/18 06:23 Eos # 0.1 K/mm3 (0.0-0.4) 02/06/18 06:23 Baso # 0.0 K/mm3 (0.0-0.1) 02/06/18 06:23 Seg Neutrophils % 82.2 % (40.0-70.0) H 02/06/18 06:23 Seg Neutrophils # 8.3 K/mm3 (1.8-7.7) H 02/06/18 06:23 Sodium 134 mmol/L (137-145) L 02/07/18 04:26 Potassium 3.5 mmol/L (3.6-5.0) L 02/07/18 04:26 Chloride 95.3 mmol/L (98-107) L 02/07/18 04:26 Carbon Dioxide 29 mmol/L (22-30) 02/07/18 04:26 Anion Gap 13 mmol/L 02/07/18 04:26 BUN 17 mg/dL (9-20) 02/07/18 04:26 Creatinine 0.8 mg/dL (0.8-1.5) 02/07/18 04:26 Estimated GFR > 60 ml/min 02/07/18 04:26 BUN/Creatinine Ratio 21 % 02/07/18 04:26 Glucose 111 mg/dL (75-100) H 02/07/18 04:26 Lactic Acid 1.80 mmol/L (0.7-2.0) 02/05/18 04:26 Calcium 8.3 mg/dL (8.4-10.2) L 02/07/18 04:26 Phosphorus 2.80 mg/dL (2.5-4.5) D 02/06/18 06:23 Magnesium 1.70 mg/dL (1.7-2.3) 02/06/18 06:23 Total Bilirubin 1.00 mg/dL (0.1-1.2) 02/06/18 06:23 AST 15 units/L (5-40) 02/06/18 06:23 ALT 7 units/L (7-56) 02/06/18 06:23 Alkaline Phosphatase 47 units/L (35-129) 02/06/18 06:23 Total Protein 6.6 g/dL (6.3-8.2) 02/06/18 06:23 Albumin 3.0 g/dL (3.9-5) L 02/06/18 06:23 Albumin/Globulin Ratio 0.8 % 02/06/18 06:23 Lipase 14 units/L (13-60) 02/04/18 06:07 Urine Color Yellow (Yellow) 02/04/18 07:53 Urine Turbidity Hazy (Clear) 02/04/18 07:53 Urine pH 5.0 (5.0-7.0) 02/04/18 07:53 Ur Specific [place] 1.016 (1.003-1.030) 02/04/18 07:53 Urine Protein <15 mg/dl mg/dL (Negative) 02/04/18 07:53 Urine Glucose (UA) Neg mg/dL (Negative) 02/04/18 07:53 Urine Ketones Neg mg/dL (Negative) 02/04/18 07:53 Urine Blood Sm (Negative) 02/04/18 07:53 Urine Nitrite Neg (Negative) 02/04/18 07:53 Urine Bilirubin Neg (Negative) 02/04/18 07:53 Urine Urobilinogen < 2.0 mg/dL (<2.0) 02/04/18 07:53 Ur Leukocyte Esterase Mod (Negative) 02/04/18 07:53 Urine WBC (Auto) 25.0 /HPF (0.0-6.0) H 02/04/18 07:53 Urine RBC (Auto) 3.0 /HPF (0.0-6.0) 02/04/18 07:53 U Epithel Cells (Auto) 1.0 /HPF (0-13.0) 02/04/18 07:53 Urine Bacteria (Auto) 1+ /HPF (Negative) 02/04/18 07:53 Urine Mucus Few /HPF 02/04/18 07:53 Blood Type A POSITIVE 02/04/18 20:08 Antibody Screen Negative 02/04/18 20:08
[2018-02-08] MEDS: MORPHINE IV PRN ×2 (00:06→10:37)
[2018-02-08] MEDS: DUONEB *Not for PRN Use IH SCH ×4 (01:17→21:31)
[2018-02-08] MEDS: NITRO DUR TD SCH (06:20)
[2018-02-08] MEDS: HEPARIN SUB-Q SCH ×3 (06:21→22:46)
--- NOTE | 2018-02-08 10:31 | Progress Note ---
Assessment and Plan Assessment: SBO s/p exploratory laparotomy, lysis of adhesions, small bowel resection Lactic acidosis / ? sepsis AMS / ? 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 Recommend resuming home cardiac regimen once PO intake is resumed. Follow surgery recs. Nothing further to add from cardiac perspective at this time. Will follow on as needed basis. The patient has been seen in conjunction with Dr. King who agrees with the assessment and plan of care. Subjective Date of service: 02/08/18 Principal diagnosis: SBO Interval history: pt resting comfortably in bed, confused, restrained. NGT in place to suction. no family at bedside. Objective Last Vital Signs Temp 97.6 F 02/08/18 07:20 Pulse 82 02/08/18 07:30 Resp 18 02/08/18 07:30 BP 163/74 02/08/18 07:20 Pulse Ox 100 02/08/18 10:00 - Physical Examination General: No Apparent Distress HEENT: Positive: PERRL Neck: Positive: neck supple, trachea midline Cardiac: Positive: Reg Rate and Rhythm, S1/S2 Lungs: Positive: Decreased Breath Sounds Neuro: Positive: Cranial Nerve 2-12 Intact, Other (confused) Abdomen: Positive: Distended, Other (abdominal surgical site). Negative: Active Bowel Sounds, Tender Skin: Positive: Other (abdominal surgical site). Negative: Rash Musculoskeletal: No Fluid Collection, No Pain, Normal Range of Motion Extremities: Absent: edema - Imaging and Cardiology EKG: report reviewed, image reviewed Echo: report reviewed (11/2017; Limited echo reviewed - EF 15-20%, mild LVH, mass visualized on the mitral valve which appears to c/w vegetation - differential diagnosis includes papillary fibroelastoma of MV, healed vegetation , myxoma, atypical location of the ventricular side or fibroma. 03/2017; 03/2017 showed EF 15-20%, mod LVH, abnormal diastolic function, mod to severe AR, LA severely dilated, trace TR, RVSP 35mmHg. ) - EKG Sinus rhythms and dysrhythmias: sinus rhythm AV and intraventricular conduction: left bundle branch block, intraventricular conducti
[2018-02-08] MEDS: LEVAQUIN 500MG/100ML 500 MG/100 ML BAG IV SCH (10:36)
[2018-02-08] MEDS: LASIX IV SCH (10:37)
[2018-02-08] MEDS: PROTONIX IV SCH (10:37)
[2018-02-08 11:47] LABS: BUN/Creatinine Ratio 21; Blood Urea Nitrogen 15 mg/dL (9-20); Calcium 6.8 mg/dL (8.4-10.2); Hemolysis Index 4
[2018-02-08] MEDS ORDERED: MAGNESIUM SULFATE 1 GM in WATER FOR INJ (PF) 23 ML IV ONE (12:16)
--- NOTE | 2018-02-08 12:47 | Progress Note ---
Assessment and Plan Assessment and plan: --Metabolic encephalopathy; confusion and psychosis Restraints for safety, Haldol as needed s/p exploratory laparotomy, lysis of adhesions, post op care per surgery PT as tolerated, consider PPN /TPN --Hypertension; well controlled on antihypertensives --Acute on chronic systolic congestive heart failure; ejection fraction 15-20% Continue anti-failure medications, neurology following --Dyslipidemia; hold lipid-lowering medications --Possible UTI; continue Levaquin, follow cultures --DVT prophylaxis; SCDs --Full CODE STATUS Plan of care is reviewed with the patient and the family member at the bedside History Interval history: Patient seen and examined medical records reviewed The patient is very agitated and confused Restraints for safety Vital signs reviewed Hospitalist Physical - Constitutional Vitals: Temp Pulse Resp BP Pulse Ox 97.6 F 101 H 20 156/75 83 L 02/08/18 12:13 02/08/18 12:13 02/08/18 12:13 02/08/18 12:13 02/08/18 12:13 General appearance: Present: no acute distress, cachectic, disheveled, other ( confused) - EENT Eyes: Present: PERRL, EOM intact - Neck Neck: Present: supple, normal ROM - Respiratory Respiratory effort: normal Respiratory: bilateral: diminished, negative: rales, rhonchi, wheezing - Cardiovascular Rhythm: regular Heart Sounds: Present: S1 & S2 - Extremities Extremities: no ischemia, No edema - Abdominal General gastrointestinal: soft, non-tender, non-distended, hypoactive bowel sounds - Integumentary Integumentary: Present: clear, warm - Psychiatric Psychiatric: agitated, other (confused) - Neurologic Neurologic: moves all extremities Results - Labs CBC & Chem 7: 02/06/18 06:23 02/08/18 12:27 Labs: Laboratory Last Values WBC 10.2 K/mm3 (4.5-11.0) 02/06/18 06:23 RBC 3.81 M/mm3 (3.65-5.03) 02/06/18 06:23 Hgb 11.5 gm/dl (11.8-15.2) L 02/06/18 06:23 Hct 34.3 % (35.5-45.6) L 02/06/18 06:23 MCV 90 fl (84-94) 02/06/18 06:23 MCH 30 pg (28-32) 02/06/18 06:23 MCHC 33 % (32-34) 02/06/18 06:23 RDW 14.8 % (13.2-15.2) 02/06/18 06:23 Plt Count 188 K/mm3 (140-440) 02/06/18 06:23 Lymph % (Auto) 10.0 % (13.4-35.0) L 02/06/18 06:23 [place] % (Auto) 6.1 % (0.0-7.3) 02/06/18 06:23 Eos % (Auto) 1.3 % (0.0-4.3) 02/06/18 06: Baso % (Auto) 0.4 % (0.0-1.8) 02/06/18 06: Lymph # 1.0 K/mm3 (1.2-5.4) L 02/06/18 06: [place] # 0.6 K/mm3 (0.0-0.8) 02/06/18 06: Eos # 0.1 K/mm3 (0.0-0.4) 02/06/18 06: Baso # 0.0 K/mm3 (0.0-0.1) 02/06/18 06:23 Seg Neutrophils % 82.2 % (40.0-70.0) H 02/06/18 06:23 Seg Neutrophils # 8.3 K/mm3 (1.8-7.7) H 02/06/18 06:23 Sodium 122 mmol/L (137-145) L D 02/08/18 09:47 Potassium 2.8 mmol/L (3.6-5.0) L* 02/08/18 09:47 Chloride 86.4 mmol/L (98-107) L 02/08/18 09:47 Carbon Dioxide 24 mmol/L (22-30) 02/08/18 09:47 Anion Gap 14 mmol/L 02/08/18 09:47 BUN 15 mg/dL (9-20) 02/08/18 09:47 Creatinine 0.7 mg/dL (0.8-1.5) L 02/08/18 09:47 Estimated GFR > 60 ml/min 02/08/18 09:47 BUN/Creatinine Ratio 21 % 02/08/18 09:47 Glucose 922 mg/dL (75-100) H* 02/08/18 09:47 POC Glucose 103 (70-105) 02/08/18 12:11 Lactic Acid 1.80 mmol/L (0.7-2.0) 02/05/18 04:26 Calcium 6.8 mg/dL (8.4-10.2) L D 02/08/18 09:47 Phosphorus 2.80 mg/dL (2.5-4.5) D 02/06/18 06:23 Magnesium 1.70 mg/dL (1.7-2.3) 02/06/18 06:23 Total Bilirubin 1.00 mg/dL (0.1-1.2) 02/06/18 06:23 AST 15 units/L (5-40) 02/06/18 06:23 ALT 7 units/L (7-56) 02/06/18 06:23 Alkaline Phosphatase 47 units/L (35-129) 02/06/18 06:23 Total Protein 6.6 g/dL (6.3-8.2) 02/06/18 06:23 Albumin 3.0 g/dL (3.9-5) L 02/06/18 06:23 Albumin/Globulin Ratio 0.8 % 02/06/18 06:23 Lipase 14 units/L (13-60) 02/04/18 06:07 Urine Color Yellow (Yellow) 02/04/18 07:53 Urine Turbidity Hazy (Clear) 02/04/18 07:53 Urine pH 5.0 (5.0-7.0) 02/04/18 07:53 Ur Specific [place] 1.016 (1.003-1.030) 02/04/18 07:53 Urine Protein <15 mg/dl mg/dL (Negative) 02/04/18 07:53 Urine Glucose (UA) Neg mg/dL (Negative) 02/04/18 07:53 Urine Ketones Neg mg/dL (Negative) 02/04/18 07:53 Urine Blood Sm (Negative) 02/04/18 07:53 Urine Nitrite Neg (Negative) 02/04/18 07:53 Urine Bilirubin Neg (Negative) 02/04/18 07:53 Urine Urobilinogen < 2.0 mg/dL (<2.0) 02/04/18 07:53 Ur Leukocyte Esterase Mod (Negative) 02/04/18 07:53 Urine WBC (Auto) 25.0 /HPF (0.0-6.0) H 02/04/18 07:53 Urine RBC (Auto) 3.0 /HPF (0.0-6.0) 02/04/18 07:53 U Epithel Cells (Auto) 1.0 /HPF (0-13.0) 02/04/18 07:53 Urine Bacteria (Auto) 1+ /HPF (Negative) 02/04/18 07:53 Urine Mucus Few /HPF 02/04/18 07:53 Blood Type A POSITIVE 02/04/18 20:08 Antibody Screen Negative 02/04/18 20:08
[2018-02-08] MEDS ORDERED: KCL 10MEQ/100ML 10 MEQ/100 ML BAG IV SCH (13:00)
[2018-02-08 13:02] LABS: BUN/Creatinine Ratio 23; Blood Urea Nitrogen 18 mg/dL (9-20); Hemolysis Index 10
--- NOTE | 2018-02-08 13:09 | Progress Note ---
Assessment and Plan 77 yo M s/p exploratory laparotomy, lysis of adhesions, small bowel resection POD 4 1. ischemic bowel 2. sepsis 2/2 #1 3. UTI Plan: 1. NGT to LCWS 2. IVF - gentle maintenance fluids 3. IS encouraged 4. NPO 5. DVT ppx 6. prn pain control 7. await bowel function 8. OOB, ambulate, PT 9. path pending 10. recheck BMP - glucose too high, may have been drawn from line with D50.45% saline., Replace lytes if needed Will continue to follow Please call with questions or concerns. Subjective Date of service: 02/08/18 Narrative: Patient seen and examined. Per nursing, the patient was increasingly confused overnight and was pulling at his IV and NG tube, as well as getting out of bed. The patient's family was contacted but no one was able to come in overnight. Therefore saw first restraints were applied to the patient. This morning he is more compliant. He states he has pain in his abdomen occasionally but is mild. He states that he has passed flatus, but no bowel movement. No fevers, chills. No chest pain, shortness of breath. He has been out of bed to chair. Objective Vital Signs - 12hr 02/08/18 02/08/18 02/08/18 04:51 06:20 07:20 Temperature 98.2 F 97.6 F Pulse Rate 84 82 83 Pulse Rate [ 82 Bilateral Throughout] Respiratory 20 18 Rate Respiratory 18 Rate [Bilateral Throughout] Blood Pressure 150/67 Blood Pressure 151/62 163/74 [Left] O2 Sat by Pulse 100 100 Oximetry 02/08/18 02/08/18 02/08/18 07:30 10:00 12:13 Temperature 97.6 F Pulse Rate 101 H Pulse Rate [ 82 Bilateral Throughout] Respiratory 20 Rate Respiratory 18 Rate [Bilateral Throughout] Blood Pressure Blood Pressure 156/75 [Left] O2 Sat by Pulse 100 83 L Oximetry - General physical appearance Narrative Exam: General: Awake, alert, oriented to person. No apparent distress ENT: NG tube in place with minimal gastric, clear yellow contents CV: S1, S2 present Respiratory: Even and unlabored Abdomen: Soft, mildly distended, nontender. No active bowel sounds. Midline incision clean, dry, intact Extremities: No Clubbing, cyanosis, edema - Labs 02/06/18 06:23 02/08/18 12:27 Diabetes panel 02/08/18 02/08/18 Range/Units 09:47 12:27 Sodium 122 L D (137-145) mmol/L Potassium 2.8 L* (3.6-5.0) mmol/L Chloride 86.4 L 91.4 L (98-107) mmol/L Carbon Dioxide 24 28 (22-30) mmol/L BUN 15 18 (9-20) mg/dL Creatinine 0.7 L 0.8 (0.8-1.5) mg/dL Glucose 922 H* 95 (75-100) mg/dL Calcium 6.8 L D (8.4-10.2) mg/dL Calcium panel 02/08/18 Range/Units 09:47 Calcium 6.8 L D (8.4-10.2) mg/dL Pituitary panel 02/08/18 02/08/18 Range/Units 09:47 12:27 Sodium 122 L D (137-145) mmol/L Potassium 2.8 L* (3.6-5.0) mmol/L Chloride 86.4 L 91.4 L (98-107) mmol/L Carbon Dioxide 24 28 (22-30) mmol/L BUN 15 18 (9-20) mg/dL Creatinine 0.7 L 0.8 (0.8-1.5) mg/dL Glucose 922 H* 95 (75-100) mg/dL Calcium 6.8 L D (8.4-10.2) mg/dL Adrenal panel 02/08/18 02/08/18 Range/Units 09:47 12:27 Sodium 122 L D (137-145) mmol/L Potassium 2.8 L* (3.6-5.0) mmol/L Chloride 86.4 L 91.4 L (98-107) mmol/L Carbon Dioxide 24 28 (22-30) mmol/L BUN 15 18 (9-20) mg/dL Creatinine 0.7 L 0.8 (0.8-1.5) mg/dL Glucose 922 H* 95 (75-100) mg/dL Calcium 6.8 L D (8.4-10.2) mg/dL
[2018-02-08] MEDS ORDERED: HALDOL IM PRN (13:30)
[2018-02-08] MEDS: KCL 10MEQ/100ML 10 MEQ/100 ML BAG IV SCH ×3 (18:25→22:43)
[2018-02-08] MEDS: D5/0.45NS 1,000 ML IV SCH (22:45)
[2018-02-09] MEDS: KCL 10MEQ/100ML 10 MEQ/100 ML BAG IV SCH (00:01)
[2018-02-09] MEDS: MORPHINE IV PRN ×3 (00:07→22:33)
[2018-02-09] MEDS: HEPARIN SUB-Q SCH ×3 (06:50→22:33)
[2018-02-09] MEDS: NITRO DUR TD SCH (06:51)
[2018-02-09] MEDS: DUONEB *Not for PRN Use IH SCH ×3 (07:38→19:14)
[2018-02-09] MEDS: PROTONIX IV SCH ×2 (08:48→10:00)
[2018-02-09] MEDS: LASIX IV SCH ×2 (08:49→10:00)
[2018-02-09] MEDS: LEVAQUIN 500MG/100ML 500 MG/100 ML BAG IV SCH (09:01)
[2018-02-09 13:45] LABS: BUN/Creatinine Ratio 17; Blood Urea Nitrogen 15 mg/dL (9-20); Calcium 8.8 mg/dL (8.4-10.2); Hemolysis Index 42
[2018-02-09] MEDS ORDERED: MILK OF MAGNESIA PO ONE (15:56)
--- NOTE | 2018-02-09 16:49 | Progress Note ---
Assessment and Plan 77 yo M s/p exploratory laparotomy, lysis of adhesions, small bowel resection POD 5 1. ischemic bowel 2. sepsis 2/2 #1 3. UTI Plan: 1. start clear liquids 2. IVF - gentle maintenance fluids 3. IS encouraged 4. One dose MOM today 5. DVT ppx 6. prn pain control 7. await bowel function 8. OOB, ambulate, PT 9. path pending 10. BMP in am Will continue to follow Please call with questions or concerns. Subjective Date of service: 02/09/18 Narrative: Pt seen and examined. Feels well. Mild abdominal pain. No n/v. Feels hungry. No flatus or BM per nursing, but patient states he had a BM this am. Pt pulled out NGT last night after becoming confused. He has not had any nausea or vomiting since. Objective Vital Signs - 12hr 02/09/18 02/09/18 02/09/18 06:51 07:14 07:15 Temperature 97.4 F L Pulse Rate 83 86 83 Pulse Rate [ Bilateral Throughout] Respiratory 20 Rate Respiratory Rate [Bilateral Throughout] Blood Pressure 139/63 133/68 O2 Sat by Pulse 99 98 Oximetry 02/09/18 02/09/18 02/09/18 08:00 08:10 10:00 Temperature Pulse Rate Pulse Rate [ 83 83 Bilateral Throughout] Respiratory Rate Respiratory 18 18 Rate [Bilateral Throughout] Blood Pressure O2 Sat by Pulse 97 Oximetry 02/09/18 02/09/18 02/09/18 11:49 11:50 15:46 Temperature 98.7 F 97.0 F L Pulse Rate 91 H 91 H 91 H Pulse Rate [ Bilateral Throughout] Respiratory 18 18 Rate Respiratory Rate [Bilateral Throughout] Blood Pressure 121/57 121/62 O2 Sat by Pulse 98 98 100 Oximetry 02/09/18 15:47 Temperature Pulse Rate 87 Pulse Rate [ Bilateral Throughout] Respiratory Rate Respiratory Rate [Bilateral Throughout] Blood Pressure O2 Sat by Pulse 100 Oximetry - General physical appearance Narrative Exam: Gen: Awake and alert. NAD CV: S1, s2+ resp: even and unlabored Abd: soft, ND, mild perincisional TTP. no r/r/g. Incision c/d/i. Abd binder in place. Hypoactive bowel sounds. Ext: no c/c/e - Labs 02/06/18 06:23 02/09/18 13:21 Diabetes panel 02/09/18 Range/Units 13:21 Sodium 136 L (137-145) mmol/L Potassium 3.6 (3.6-5.0) mmol/L Chloride 94.9 L (98-107) mmol/L Carbon Dioxide 30 (22-30) mmol/L BUN 15 (9-20) mg/dL Creatinine 0.9 (0.8-1.5) mg/dL Glucose 106 H (75-100) mg/dL Calcium 8.8 (8.4-10.2) mg/dL Calcium panel 02/09/18 Range/Units 13:21 Calcium 8.8 (8.4-10.2) mg/dL Pituitary panel 02/09/18 Range/Units 13:21 Sodium 136 L (137-145) mmol/L Potassium 3.6 (3.6-5.0) mmol/L Chloride 94.9 L (98-107) mmol/L Carbon Dioxide 30 (22-30) mmol/L BUN 15 (9-20) mg/dL Creatinine 0.9 (0.8-1.5) mg/dL Glucose 106 H (75-100) mg/dL Calcium 8.8 (8.4-10.2) mg/dL Adrenal panel 02/09/18 Range/Units 13:21 Sodium 136 L (137-145) mmol/L Potassium 3.6 (3.6-5.0) mmol/L Chloride 94.9 L (98-107) mmol/L Carbon Dioxide 30 (22-30) mmol/L BUN 15 (9-20) mg/dL Creatinine 0.9 (0.8-1.5) mg/dL Glucose 106 H (75-100) mg/dL Calcium 8.8 (8.4-10.2) mg/dL
[2018-02-09] MEDS: D5/0.45NS 1,000 ML IV SCH (16:56)
--- NOTE | 2018-02-09 17:01 | Progress Note ---
Assessment and Plan Assessment and plan: --Metabolic encephalopathy; confusion and psychosis Today patient is alert and awake, and cheerful , off restraints Closely monitor --s/p exploratory laparotomy, lysis of adhesions, post op care per surgery ,PT , clear liquid diet, --Hypertension; well controlled on antihypertensives --Acute on chronic systolic congestive heart failure; EF 15-20% .anti-failure medications, cardio following --Dyslipidemia; hold lipid-lowering medications --Possible UTI; Escherichia coli, resistant to Levaquin DC Levaquin and start Zosyn --DVT prophylaxis; SCDs --Full CODE STATUS Plan of care reviewed with the nurse Surgery recommendations noted History Interval history: Patient seen and examined in his room this afternoon, Medical records reviewed Nurse reports patient is calm and quiet, off restraints, tolerated boost No new complaints, Patient is cheerful, responding to very simple questions Vital signs noted Hospitalist Physical - Constitutional Vitals: Temp Pulse Resp BP Pulse Ox 97.0 F L 87 18 121/62 100 02/09/18 15:46 02/09/18 15:47 02/09/18 15:46 02/09/18 15:46 02/09/18 15:47 General appearance: Present: no acute distress, cachectic, disheveled - EENT Eyes: Present: PERRL, EOM intact - Neck Neck: Present: supple, normal ROM - Respiratory Respiratory effort: normal Respiratory: bilateral: diminished, negative: rales, rhonchi, wheezing - Cardiovascular Rhythm: regular Heart Sounds: Present: S1 & S2 - Extremities Extremities: no ischemia, No edema - Abdominal General gastrointestinal: soft, non-tender, non-distended, hypoactive bowel sounds - Integumentary Integumentary: Present: clear, warm - Psychiatric Psychiatric: cooperative, other (confused at times) - Neurologic Neurologic: moves all extremities Results - Labs CBC & Chem 7: 02/06/18 06:23 02/09/18 13:21 Labs: Laboratory Last Values WBC 10.2 K/mm3 (4.5-11.0) 02/06/18 06:23 RBC 3.81 M/mm3 (3.65-5.03) 02/06/18 06:23 Hgb 11.5 gm/dl (11.8-15.2) L 02/06/18 06:23 Hct 34.3 % (35.5-45.6) L 02/06/18 06:23 MCV 90 fl (84-94) 02/06/18 06: MCH 30 pg (28-32) 02/06/18 06:23 MCHC 33 % (32-34) 02/06/18 06:23 RDW 14.8 % (13.2-15.2) 02/06/18 06:23 Plt Count 188 K/mm3 (140-440) 02/06/18 06:23 Lymph % (Auto) 10.0 % (13.4-35.0) L 02/06/18 06:23 [place] % (Auto) 6.1 % (0.0-7.3) 02/06/18 06:23 Eos % (Auto) 1.3 % (0.0-4.3) 02/06/18 06:23 Baso % (Auto) 0.4 % (0.0-1.8) 02/06/18 06:23 Lymph # 1.0 K/mm3 (1.2-5.4) L 02/06/18 06:23 [place] # 0.6 K/mm3 (0.0-0.8) 02/06/18 06:23 Eos # 0.1 K/mm3 (0.0-0.4) 02/06/18 06:23 Baso # 0.0 K/mm3 (0.0-0.1) 02/06/18 06:23 Seg Neutrophils % 82.2 % (40.0-70.0) H 02/06/18 06:23 Seg Neutrophils # 8.3 K/mm3 (1.8-7.7) H 02/06/18 06:23 Sodium 136 mmol/L (137-145) L 02/09/18 13:21 Potassium 3.6 mmol/L (3.6-5.0) 02/09/18 13:21 Chloride 94.9 mmol/L (98-107) L 02/09/18 13:21 Carbon Dioxide 30 mmol/L (22-30) 02/09/18 13:21 Anion Gap 15 mmol/L 02/09/18 13:21 BUN 15 mg/dL (9-20) 02/09/18 13:21 Creatinine 0.9 mg/dL (0.8-1.5) 02/09/18 13:21 Estimated GFR > 60 ml/min 02/09/18 13:21 BUN/Creatinine Ratio 17 % 02/09/18 13:21 Glucose 106 mg/dL (75-100) H 02/09/18 13:21 POC Glucose 103 (70-105) 02/08/18 12:11 Lactic Acid 1.80 mmol/L (0.7-2.0) 02/05/18 04:26 Calcium 8.8 mg/dL (8.4-10.2) 02/09/18 13:21 Phosphorus 2.80 mg/dL (2.5-4.5) D 02/06/18 06:23 Magnesium 1.70 mg/dL (1.7-2.3) 02/06/18 06:23 Total Bilirubin 1.00 mg/dL (0.1-1.2) 02/06/18 06:23 AST 15 units/L (5-40) 02/06/18 06:23 ALT 7 units/L (7-56) 02/06/18 06:23 Alkaline Phosphatase 47 units/L (35-129) 02/06/18 06:23 Total Protein 6.6 g/dL (6.3-8.2) 02/06/18 06:23 Albumin 3.0 g/dL (3.9-5) L 02/06/18 06:23 Albumin/Globulin Ratio 0.8 % 02/06/18 06:23 Lipase 14 units/L (13-60) 02/04/18 06:07 Urine Color Yellow (Yellow) 02/04/18 07:53 Urine Turbidity Hazy (Clear) 02/04/18 07:53 Urine pH 5.0 (5.0-7.0) 02/04/18 07:53 Ur Specific [place] 1.016 (1.003-1.030) 02/04/18 07:53 Urine Protein <15 mg/dl mg/dL (Negative) 02/04/18 07:53 Urine Glucose (UA) Neg mg/dL (Negative) 02/04/18 07:53 Urine Ketones Neg mg/dL (Negative) 02/04/18 07:53 Urine Blood Sm (Negative) 02/04/18 07:53 Urine Nitrite Neg (Negative) 02/04/18 07:53 Urine Bilirubin Neg (Negative) 02/04/18 07:53 Urine Urobilinogen < 2.0 mg/dL (<2.0) 02/04/18 07:53 Ur Leukocyte Esterase Mod (Negative) 02/04/18 07:53 Urine WBC (Auto) 25.0 /HPF (0.0-6.0) H 02/04/18 07:53 Urine RBC (Auto) 3.0 /HPF (0.0-6.0) 02/04/18 07:53 U Epithel Cells (Auto) 1.0 /HPF (0-13.0) 02/04/18 07:53 Urine Bacteria (Auto) 1+ /HPF (Negative) 02/04/18 07:53 Urine Mucus Few /HPF 02/04/18 07:53 Blood Type A POSITIVE 02/04/18 20:08 Antibody Screen Negative 02/04/18 20:08
[2018-02-09] MEDS: ZOSYN/NS 3.375GM/50ML 3.375 GM/50 ML BAG IV SCH (22:32)
[2018-02-10] MEDS: NITRO DUR TD SCH (05:39)
[2018-02-10] MEDS: HEPARIN SUB-Q SCH ×3 (05:40→22:28)
[2018-02-10] MEDS: D5/0.45NS 1,000 ML IV SCH ×2 (05:42→18:18)
[2018-02-10] MEDS: ZOSYN/NS 3.375GM/50ML 3.375 GM/50 ML BAG IV SCH ×3 (05:47→23:51)
[2018-02-10] MEDS: PROTONIX IV SCH ×2 (08:21→10:00)
[2018-02-10] MEDS: LASIX IV SCH ×2 (08:22→10:00)
[2018-02-10] MEDS ORDERED: cefTRIAXone 1 GM in NACL 0.9% 20 ML IV SCH (10:00)
[2018-02-10] MEDS: DUONEB *Not for PRN Use IH SCH ×3 (11:55→21:11)
--- NOTE | 2018-02-10 14:53 | Progress Note ---
Assessment and Plan 77 yo M s/p exploratory laparotomy, lysis of adhesions, small bowel resection POD 6 1. ischemic bowel 2. sepsis 2/2 #1 3. UTI Plan: 1. c/w clear liquids 2. IVF - gentle maintenance fluids 3. IS encouraged 4. will give a dose of MOM today 5. DVT ppx 6. prn pain control 7. await bowel function 8. OOB, ambulate, PT 9. path pending Please call with questions or concerns. Subjective Date of service: 02/10/18 Narrative: Pt seen and examined. No complaints. States he feels good. No f/c, cp, sob, n/ v. Tolerating clear liquids. No BM yet Objective Vital Signs - 12hr 02/10/18 02/10/18 02/10/18 05:22 05:29 05:39 Temperature 98.0 F Pulse Rate 84 86 Pulse Rate [ Bilateral Throughout] Respiratory 18 Rate Respiratory Rate [Bilateral Throughout] Blood Pressure 128/66 128/66 O2 Sat by Pulse 100 Oximetry 02/10/18 02/10/18 02/10/18 07:20 11:47 11:56 Temperature 97.8 F 98.1 F Pulse Rate 82 77 Pulse Rate [ 82 Bilateral Throughout] Respiratory 18 18 Rate Respiratory 18 Rate [Bilateral Throughout] Blood Pressure 118/59 125/71 O2 Sat by Pulse 100 100 Oximetry - General physical appearance Narrative Exam: Gen: Awake and alert, oriented to person and place CV: S1, s2+ resp: even and unlabored Abd: soft, mildly distended, NT. incision c/d/i. + bowel sounds in all 4 quadrants. Ext; no c/c/e - Labs 02/06/18 06:23 02/09/18 13:21
--- NOTE | 2018-02-10 17:03 | Progress Note ---
Assessment and Plan Assessment and plan: --Small bowel obstruction --s/p exploratory laparotomy, lysis of adhesions, post op care per surgery ,PT , clear liquid diet, Supportive care --Metabolic encephalopathy/confusion; resolved Patient is more alert and awake today, closely monitor --Hypertension; well controlled on antihypertensives --Acute on chronic systolic congestive heart failure; EF 15-20% .anti-failure medications, cardio following --Dyslipidemia; hold lipid-lowering medications --Sepsis secondary to UTI; Escherichia coli, continue Zosyn DC home on oral doxycycline or Bactrim --DVT prophylaxis; SCDs --Full CODE STATUS --DC planning per case management; Patient lives alone, would benefit by subacute rehabilitation Versus SNF placement, when Medically stable History Interval history: Patient seen and examined medical records reviewed Patient is comfortable and calm no agitation or confusion Tolerating clear liquid diet, did not have BM Vital signs reviewed Hospitalist Physical - Constitutional Vitals: Temp Pulse Resp BP Pulse Ox 97.8 F 87 18 125/58 100 02/10/18 16:00 02/10/18 16:00 02/10/18 16:00 02/10/18 16:00 02/10/18 16:00 General appearance: Present: no acute distress, cachectic, disheveled - EENT Eyes: Present: PERRL, EOM intact - Neck Neck: Present: supple, normal ROM - Respiratory Respiratory effort: normal Respiratory: bilateral: diminished, negative: rales, rhonchi, wheezing - Cardiovascular Rhythm: regular Heart Sounds: Present: S1 & S2 - Extremities Extremities: no ischemia, No edema Peripheral Pulses: within normal limits - Abdominal General gastrointestinal: soft, non-tender, non-distended, normal bowel sounds - Integumentary Integumentary: Present: clear, warm - Psychiatric Psychiatric: appropriate mood/affect Results - Labs CBC & Chem 7: 02/06/18 06:23 02/09/18 13:21 Labs: Laboratory Last Values WBC 10.2 K/mm3 (4.5-11.0) 02/06/18 06:23 RBC 3.81 M/mm3 (3.65-5.03) 02/06/18 06:23 Hgb 11.5 gm/dl (11.8-15.2) L 02/06/18 06:23 Hct 34.3 % (35.5-45.6) L 02/06/18 06:23 MCV 90 fl (84-94) 02/06/18 06:23 MCH 30 pg (28-32) 02/06/18 06:23 MCHC 33 % (32-34) 02/06/18 06:23 RDW 14.8 % (13.2-15.2) 02/06/18 06:23 Plt Count 188 K/mm3 (140-440) 02/06/18 06:23 Lymph % (Auto) 10.0 % (13.4-35.0) L 02/06/18 06:23 Sac % (Auto) 6.1 % (0.0-7.3) 02/06/18 06:23 Eos % (Auto) 1.3 % (0.0-4.3) 02/06/18 06: Baso % (Auto) 0.4 % (0.0-1.8) 02/06/18 06:23 Lymph # 1.0 K/mm3 (1.2-5.4) L 02/06/18 06:23 Sac # 0.6 K/mm3 (0.0-0.8) 02/06/18 06:23 Eos # 0.1 K/mm3 (0.0-0.4) 02/06/18 06:23 Baso # 0.0 K/mm3 (0.0-0.1) 02/06/18 06:23 Seg Neutrophils % 82.2 % (40.0-70.0) H 02/06/18 06:23 Seg Neutrophils # 8.3 K/mm3 (1.8-7.7) H 02/06/18 06:23 Sodium 136 mmol/L (137-145) L 02/09/18 13:21 Potassium 3.6 mmol/L (3.6-5.0) 02/09/18 13:21 Chloride 94.9 mmol/L (98-107) L 02/09/18 13:21 Carbon Dioxide 30 mmol/L (22-30) 02/09/18 13:21 Anion Gap 15 mmol/L 02/09/18 13:21 BUN 15 mg/dL (9-20) 02/09/18 13:21 Creatinine 0.9 mg/dL (0.8-1.5) 02/09/18 13:21 Estimated GFR > 60 ml/min 02/09/18 13:21 BUN/Creatinine Ratio 17 % 02/09/18 13:21 Glucose 106 mg/dL (75-100) H 02/09/18 13:21 POC Glucose 103 (70-105) 02/08/18 12:11 Lactic Acid 1.80 mmol/L (0.7-2.0) 02/05/18 04:26 Calcium 8.8 mg/dL (8.4-10.2) 02/09/18 13:21 Phosphorus 2.80 mg/dL (2.5-4.5) D 02/06/18 06:23 Magnesium 1.70 mg/dL (1.7-2.3) 02/06/18 06:23 Total Bilirubin 1.00 mg/dL (0.1-1.2) 02/06/18 06:23 AST 15 units/L (5-40) 02/06/18 06:23 ALT 7 units/L (7-56) 02/06/18 06:23 Alkaline Phosphatase 47 units/L (35-129) 02/06/18 06:23 Total Protein 6.6 g/dL (6.3-8.2) 02/06/18 06:23 Albumin 3.0 g/dL (3.9-5) L 02/06/18 06:23 Albumin/Globulin Ratio 0.8 % 02/06/18 06:23 Lipase 14 units/L (13-60) 02/04/18 06:07 Urine Color Yellow (Yellow) 02/04/18 07:53 Urine Turbidity Hazy (Clear) 02/04/18 07:53 Urine pH 5.0 (5.0-7.0) 02/04/18 07:53 Ur Specific [place] 1.016 (1.003-1.030) 02/04/18 07:53 Urine Protein <15 mg/dl mg/dL (Negative) 02/04/18 07:53 Urine Glucose (UA) Neg mg/dL (Negative) 02/04/18 07:53 Urine Ketones Neg mg/dL (Negative) 02/04/18 07:53 Urine Blood Sm (Negative) 02/04/18 07:53 Urine Nitrite Neg (Negative) 02/04/18 07:53 Urine Bilirubin Neg (Negative) 02/04/18 07:53 Urine Urobilinogen < 2.0 mg/dL (<2.0) 02/04/18 07:53 Ur Leukocyte Esterase Mod (Negative) 02/04/18 07:53 Urine WBC (Auto) 25.0 /HPF (0.0-6.0) H 02/04/18 07:53 Urine RBC (Auto) 3.0 /HPF (0.0-6.0) 02/04/18 07:53 U Epithel Cells (Auto) 1.0 /HPF (0-13.0) 02/04/18 07:53 Urine Bacteria (Auto) 1+ /HPF (Negative) 02/04/18 07:53 Urine Mucus Few /HPF 02/04/18 07:53 Blood Type A POSITIVE 02/04/18 20:08 Antibody Screen Negative 02/04/18 20:08
[2018-02-11] MEDS: ZOSYN/NS 3.375GM/50ML 3.375 GM/50 ML BAG IV SCH (05:56)
[2018-02-11] MEDS: NITRO DUR TD SCH (05:56)
[2018-02-11] MEDS: HEPARIN SUB-Q SCH ×3 (07:05→22:01)
[2018-02-11] MEDS ORDERED: MOTRIN PO PRN (08:35)
[2018-02-11] MEDS: PROTONIX IV SCH (09:31)
[2018-02-11] MEDS: LASIX IV SCH (09:32)
--- NOTE | 2018-02-11 11:21 | Progress Note ---
Assessment and Plan Assessment and plan: --Small bowel obstruction --s/p exploratory laparotomy, lysis of adhesions, post op care per surgery ,PT , clear liquid diet, Supportive care --Metabolic encephalopathy/confusion; resolved Patient is more alert and awake today, --Hypertension; well controlled on antihypertensives --Acute on chronic systolic congestive heart failure; EF 15-20% .anti-failure medications, cardio following --Dyslipidemia; hold lipid-lowering medications --Sepsis secondary to UTI; Escherichia coli, continue Zosyn DC home on oral doxycycline or Bactrim --DVT prophylaxis; SCDs --Full CODE STATUS --DC planning per case management; Patient lives alone, would benefit by subacute rehabilitation Versus SNF placement, when Medically stable History Interval history: Patient seen and examined medical record is reviewed Clinically better tolerated clear liquid diet diet Alert and awake cachectic Vital signs noted Hospitalist Physical - Constitutional Vitals: Temp Pulse Resp BP Pulse Ox 98.5 F 78 18 125/62 100 02/11/18 07:36 02/11/18 07:36 02/11/18 07:36 02/11/18 07:36 02/11/18 07:36 General appearance: Present: no acute distress, cachectic, disheveled - EENT Eyes: Present: PERRL, EOM intact - Neck Neck: Present: supple, normal ROM - Respiratory Respiratory effort: normal Respiratory: negative: rales, rhonchi, wheezing - Cardiovascular Rhythm: regular Heart Sounds: Present: S1 & S2 - Extremities Extremities: no ischemia Extremity abnormal: edema - Abdominal General gastrointestinal: soft, non-tender, non-distended, hypoactive bowel sounds - Integumentary Integumentary: Present: clear, warm - Psychiatric Psychiatric: appropriate mood/affect, cooperative - Neurologic Neurologic: CNII-XII intact, moves all extremities Results - Labs CBC & Chem 7: 02/06/18 06:23 02/11/18 12:41 Labs: Laboratory Last Values WBC 10.2 K/mm3 (4.5-11.0) 02/06/18 06:23 RBC 3.81 M/mm3 (3.65-5.03) 02/06/18 06:23 Hgb 11.5 gm/dl (11.8-15.2) L 02/06/18 06:23 Hct 34.3 % (35.5-45.6) L 02/06/18 06:23 MCV 90 fl (84-94) 02/06/18 06:23 MCH 30 pg (28-32) 02/06/18 06:23 MCHC 33 % (32-34) 02/06/18 06:23 RDW 14.8 % (13.2-15.2) 02/06/18 06:23 Plt Count 188 K/mm3 (140-440) 02/06/18 06:23 Lymph % (Auto) 10.0 % (13.4-35.0) L 02/06/18 06:23 [place] % (Auto) 6.1 % (0.0-7.3) 02/06/18 06:23 Eos % (Auto) 1.3 % (0.0-4.3) 02/06/18 06: Baso % (Auto) 0.4 % (0.0-1.8) 02/06/18 06:23 Lymph # 1.0 K/mm3 (1.2-5.4) L 02/06/18 06:23 [place] # 0.6 K/mm3 (0.0-0.8) 02/06/18 06:23 Eos # 0.1 K/mm3 (0.0-0.4) 02/06/18 06:23 Baso # 0.0 K/mm3 (0.0-0.1) 02/06/18 06:23 Seg Neutrophils % 82.2 % (40.0-70.0) H 02/06/18 06:23 Seg Neutrophils # 8.3 K/mm3 (1.8-7.7) H 02/06/18 06:23 Sodium 136 mmol/L (137-145) L 02/09/18 13:21 Potassium 3.6 mmol/L (3.6-5.0) 02/09/18 13:21 Chloride 94.9 mmol/L (98-107) L 02/09/18 13:21 Carbon Dioxide 30 mmol/L (22-30) 02/09/18 13:21 Anion Gap 15 mmol/L 02/09/18 13:21 BUN 15 mg/dL (9-20) 02/09/18 13:21 Creatinine 0.9 mg/dL (0.8-1.5) 02/09/18 13:21 Estimated GFR > 60 ml/min 02/09/18 13:21 BUN/Creatinine Ratio 17 % 02/09/18 13:21 Glucose 106 mg/dL (75-100) H 02/09/18 13:21 POC Glucose 103 (70-105) 02/08/18 12:11 Lactic Acid 1.80 mmol/L (0.7-2.0) 02/05/18 04:26 Calcium 8.8 mg/dL (8.4-10.2) 02/09/18 13:21 Phosphorus 2.80 mg/dL (2.5-4.5) D 02/06/18 06:23 Magnesium 1.70 mg/dL (1.7-2.3) 02/06/18 06:23 Total Bilirubin 1.00 mg/dL (0.1-1.2) 02/06/18 06:23 AST 15 units/L (5-40) 02/06/18 06:23 ALT 7 units/L (7-56) 02/06/18 06:23 Alkaline Phosphatase 47 units/L (35-129) 02/06/18 06:23 Total Protein 6.6 g/dL (6.3-8.2) 02/06/18 06:23 Albumin 3.0 g/dL (3.9-5) L 02/06/18 06:23 Albumin/Globulin Ratio 0.8 % 02/06/18 06:23 Lipase 14 units/L (13-60) 02/04/18 06:07 Urine Color Yellow (Yellow) 02/04/18 07:53 Urine Turbidity Hazy (Clear) 02/04/18 07:53 Urine pH 5.0 (5.0-7.0) 02/04/18 07:53 Ur Specific [place] 1.016 (1.003-1.030) 02/04/18 07:53 Urine Protein <15 mg/dl mg/dL (Negative) 02/04/18 07:53 Urine Glucose (UA) Neg mg/dL (Negative) 02/04/18 07:53 Urine Ketones Neg mg/dL (Negative) 02/04/18 07:53 Urine Blood Sm (Negative) 02/04/18 07:53 Urine Nitrite Neg (Negative) 02/04/18 07:53 Urine Bilirubin Neg (Negative) 02/04/18 07:53 Urine Urobilinogen < 2.0 mg/dL (<2.0) 02/04/18 07:53 Ur Leukocyte Esterase Mod (Negative) 02/04/18 07:53 Urine WBC (Auto) 25.0 /HPF (0.0-6.0) H 02/04/18 07:53 Urine RBC (Auto) 3.0 /HPF (0.0-6.0) 02/04/18 07:53 U Epithel Cells (Auto) 1.0 /HPF (0-13.0) 02/04/18 07:53 Urine Bacteria (Auto) 1+ /HPF (Negative) 02/04/18 07:53 Urine Mucus Few /HPF 02/04/18 07:53 Blood Type A POSITIVE 02/04/18 20:08 Antibody Screen Negative 02/04/18 20:08
[2018-02-11] MEDS: DUONEB *Not for PRN Use IH SCH ×3 (12:05→21:38)
[2018-02-11 13:43] LABS: BUN/Creatinine Ratio 14; Blood Urea Nitrogen 13 mg/dL (9-20); Calcium 8.9 mg/dL (8.4-10.2); Hemolysis Index 1
[2018-02-11] MEDS ORDERED: DULCOLAX PR ONE (18:38)
--- NOTE | 2018-02-11 18:40 | Progress Note ---
Assessment and Plan 77 yo M s/p exploratory laparotomy, lysis of adhesions, small bowel resection POD 7 1. ischemic bowel 2. sepsis 2/2 #1 3. UTI Plan: 1. Advance to full liquids 2. IVF - gentle maintenance fluids 3. IS encouraged 4. Will give suppository today 5. DVT ppx 6. prn PO pain control 7. await bowel function 8. OOB, ambulate, PT 9. Pathology - ischemic small intestine, benign viable surgical margins, negative for malignancy DC planning to home with niece with home care for case management note. Please call with questions or concerns. Subjective Date of service: 02/11/18 Narrative: Patient seen and examined. He states he feels well. He feels hungry. He has been tolerating clear liquids. No nausea, vomiting, fevers, chills. Per the patient, he has had bowel movements and is passing flatus, however per nursing he has not had a bowel movement yet. Objective Vital Signs - 12hr 02/11/18 02/11/18 02/11/18 07:36 13:02 15:40 Temperature 98.5 F 98.4 F Pulse Rate 78 79 Pulse Rate [ 76 Anterior Bilateral Upper Lobe] Pulse Rate [ 76 Bilateral Throughout] Respiratory 18 20 Rate Respiratory 16 Rate [Anterior Bilateral Upper Lobe] Respiratory 16 Rate [Bilateral Throughout] Blood Pressure 125/62 Blood Pressure 126/60 [Left] O2 Sat by Pulse 100 99 Oximetry 02/11/18 15:53 Temperature Pulse Rate Pulse Rate [ 83 Anterior Bilateral Upper Lobe] Pulse Rate [ Bilateral Throughout] Respiratory Rate Respiratory 16 Rate [Anterior Bilateral Upper Lobe] Respiratory Rate [Bilateral Throughout] Blood Pressure Blood Pressure [Left] O2 Sat by Pulse Oximetry - General physical appearance Narrative Exam: General: Awake, alert, oriented to person. No apparent distress CV: S1, S2 present Respiratory: No audible wheezes Abdomen: Soft, nondistended, mild appropriate sameera-incisional tenderness to palpation. No rebound, rigidity, guarding. Incision is clean, dry, intact Extremities: No clubbing, cyanosis, edema - Labs 02/06/18 06:23 02/11/18 12:41 Diabetes panel 02/11/18 Range/Units 12:41 Sodium 136 L (137-145) mmol/L Potassium 3.6 (3.6-5.0) mmol/L Chloride 93.5 L (98-107) mmol/L Carbon Dioxide 32 H (22-30) mmol/L BUN 13 (9-20) mg/dL Creatinine 0.9 (0.8-1.5) mg/dL Glucose 104 H (75-100) mg/dL Calcium 8.9 (8.4-10.2) mg/dL Calcium panel 02/11/18 Range/Units 12:41 Calcium 8.9 (8.4-10.2) mg/dL Phosphorus 2.90 (2.5-4.5) mg/dL Pituitary panel 02/11/18 Range/Units 12:41 Sodium 136 L (137-145) mmol/L Potassium 3.6 (3.6-5.0) mmol/L Chloride 93.5 L (98-107) mmol/L Carbon Dioxide 32 H (22-30) mmol/L BUN 13 (9-20) mg/dL Creatinine 0.9 (0.8-1.5) mg/dL Glucose 104 H (75-100) mg/dL Calcium 8.9 (8.4-10.2) mg/dL Adrenal panel 02/11/18 Range/Units 12:41 Sodium 136 L (137-145) mmol/L Potassium 3.6 (3.6-5.0) mmol/L Chloride 93.5 L (98-107) mmol/L Carbon Dioxide 32 H (22-30) mmol/L BUN 13 (9-20) mg/dL Creatinine 0.9 (0.8-1.5) mg/dL Glucose 104 H (75-100) mg/dL Calcium 8.9 (8.4-10.2) mg/dL
[2018-02-12] MEDS: D5/0.45NS 1,000 ML IV SCH (00:29)
[2018-02-12] MEDS: HEPARIN SUB-Q SCH ×3 (05:29→21:30)
[2018-02-12] MEDS: NITRO DUR TD SCH (05:35)
[2018-02-12 05:54] LABS: Basophils % (Auto) 0.7 % (0.0-1.8); Eosinophils # (Auto) 0.5 K/mm3 (0.0-0.4); Eosinophils % (Auto) 10.2 % (0.0-4.3); Hematocrit 30.3 % (35.5-45.6); Hemoglobin 10.2 gm/dl (11.8-15.2); Lymphocytes # (Auto) 1.1 K/mm3 (1.2-5.4); Lymphocytes % (Auto) 21.7 % (13.4-35.0); Mean Corpuscular HGB Conc 34 % (32-34); Mean Corpuscular Hemoglobin 31 pg (28-32); Mean Corpuscular Volume 91 fl (84-94); Monocytes # (Auto) 0.5 K/mm3 (0.0-0.8); Monocytes % (Auto) 9.1 % (0.0-7.3); Platelet Count 233 K/mm3 (140-440); Red Blood Count 3.33 M/mm3 (3.65-5.03)
[2018-02-12 06:33] LABS: BUN/Creatinine Ratio 13; Blood Urea Nitrogen 12 mg/dL (9-20); Hemolysis Index 2
[2018-02-12] MEDS ORDERED: K-DUR PO ONE (08:43)
--- NOTE | 2018-02-12 08:44 | Progress Note ---
Assessment and Plan Assessment and plan: --Small bowel obstruction --s/p exploratory laparotomy, lysis of adhesions, post op care per surgery ,PT , full liquid diet Patient did not have BM, possible stool softeners needed --Metabolic encephalopathy/confusion; resolved --Hypertension; well controlled on antihypertensives --Acute on chronic systolic congestive heart failure; EF 15-20% .anti-failure medications, cardio following --Dyslipidemia; hold lipid-lowering medications --Sepsis secondary to UTI; Escherichia coli, Completed antibiotics --DVT prophylaxis; SCDs --Full CODE STATUS --DC planning per case management; Possible home with home hospice when cleared by surgery History Interval history: Patient seen and examined medical records reviewed Slightly better tolerating full liquid diet, passed flatus, no bowel movement Complaints of generalized weakness No new events reported Vital signs reviewed Hospitalist Physical - Constitutional Vitals: Temp Pulse Resp BP Pulse Ox 97.8 F 71 18 132/49 99 02/12/18 07:36 02/12/18 07:36 02/12/18 07:36 02/12/18 07:36 02/12/18 07:36 General appearance: Present: no acute distress, cachectic, disheveled - EENT Eyes: Present: PERRL, EOM intact - Neck Neck: Present: supple, normal ROM - Respiratory Respiratory effort: normal Respiratory: bilateral: diminished, negative: rales, rhonchi, wheezing - Cardiovascular Rhythm: regular Heart Sounds: Present: S1 & S2 - Extremities Extremities: no ischemia - Abdominal General gastrointestinal: soft, non-tender, non-distended, normal bowel sounds - Integumentary Integumentary: Present: clear, warm - Psychiatric Psychiatric: appropriate mood/affect, cooperative - Neurologic Neurologic: CNII-XII intact, moves all extremities Results - Labs CBC & Chem 7: 02/12/18 05:31 02/12/18 05:31 Labs: Laboratory Last Values WBC 5.2 K/mm3 (4.5-11.0) 02/12/18 05:31 RBC 3.33 M/mm3 (3.65-5.03) L 02/12/18 05:31 Hgb 10.2 gm/dl (11.8-15.2) L 02/12/18 05:31 Hct 30.3 % (35.5-45.6) L 02/12/18 05:31 MCV 91 fl (84-94) 02/12/18 05:31 MCH 31 pg (28-32) 02/12/18 05:31 MCHC 34 % (32-34) 02/12/18 05:31 RDW 14.0 % (13.2-15.2) 02/12/18 05:31 Plt Count 233 K/mm3 (140-440) 02/12/18 05:31 Lymph % (Auto) 21.7 % (13.4-35.0) 02/12/18 05:31 [place] % (Auto) 9.1 % (0.0-7.3) H 02/12/18 05:31 Eos % (Auto) 10.2 % (0.0-4.3) H 02/12/18 05:31 Baso % (Auto) 0.7 % (0.0-1.8) 02/12/18 05:31 Lymph # 1.1 K/mm3 (1.2-5.4) L 02/12/18 05:31 [place] # 0.5 K/mm3 (0.0-0.8) 02/12/18 05:31 Eos # 0.5 K/mm3 (0.0-0.4) H 02/12/18 05:31 Baso # 0.0 K/mm3 (0.0-0.1) 02/12/18 05:31 Seg Neutrophils % 58.3 % (40.0-70.0) 02/12/18 05:31 Seg Neutrophils # 3.1 K/mm3 (1.8-7.7) 02/12/18 05:31 Sodium 141 mmol/L (137-145) 02/12/18 05:31 Potassium 3.5 mmol/L (3.6-5.0) L 02/12/18 05:31 Chloride 97.5 mmol/L (98-107) L 02/12/18 05:31 Carbon Dioxide 32 mmol/L (22-30) H 02/12/18 05:31 Anion Gap 15 mmol/L 02/12/18 05:31 BUN 12 mg/dL (9-20) 02/12/18 05:31 Creatinine 0.9 mg/dL (0.8-1.5) 02/12/18 05:31 Estimated GFR > 60 ml/min 02/12/18 05:31 BUN/Creatinine Ratio 13 % 02/12/18 05:31 Glucose 90 mg/dL (75-100) 02/12/18 05:31 POC Glucose 103 (70-105) 02/08/18 12:11 Lactic Acid 1.80 mmol/L (0.7-2.0) 02/05/18 04:26 Calcium 9.0 mg/dL (8.4-10.2) 02/12/18 05:31 Phosphorus 2.90 mg/dL (2.5-4.5) 02/11/18 12:41 Magnesium 2.00 mg/dL (1.7-2.3) 02/12/18 05:31 Total Bilirubin 1.00 mg/dL (0.1-1.2) 02/06/18 06:23 AST 15 units/L (5-40) 02/06/18 06:23 ALT 7 units/L (7-56) 02/06/18 06:23 Alkaline Phosphatase 47 units/L (35-129) 02/06/18 06:23 Total Protein 6.6 g/dL (6.3-8.2) 02/06/18 06:23 Albumin 3.0 g/dL (3.9-5) L 02/06/18 06:23 Albumin/Globulin Ratio 0.8 % 02/06/18 06:23 Lipase 14 units/L (13-60) 02/04/18 06:07 Urine Color Yellow (Yellow) 02/04/18 07:53 Urine Turbidity Hazy (Clear) 02/04/18 07:53 Urine pH 5.0 (5.0-7.0) 02/04/18 07:53 Ur Specific [place] 1.016 (1.003-1.030) 02/04/18 07:53 Urine Protein <15 mg/dl mg/dL (Negative) 02/04/18 07:53 Urine Glucose (UA) Neg mg/dL (Negative) 02/04/18 07:53 Urine Ketones Neg mg/dL (Negative) 02/04/18 07:53 Urine Blood Sm (Negative) 02/04/18 07:53 Urine Nitrite Neg (Negative) 02/04/18 07:53 Urine Bilirubin Neg (Negative) 02/04/18 07:53 Urine Urobilinogen < 2.0 mg/dL (<2.0) 02/04/18 07:53 Ur Leukocyte Esterase Mod (Negative) 02/04/18 07:53 Urine WBC (Auto) 25.0 /HPF (0.0-6.0) H 02/04/18 07:53 Urine RBC (Auto) 3.0 /HPF (0.0-6.0) 02/04/18 07:53 U Epithel Cells (Auto) 1.0 /HPF (0-13.0) 02/04/18 07:53 Urine Bacteria (Auto) 1+ /HPF (Negative) 02/04/18 07:53 Urine Mucus Few /HPF 02/04/18 07:53 Blood Type A POSITIVE 02/04/18 20:08 Antibody Screen Negative 02/04/18 20:08
[2018-02-12] MEDS: DUONEB *Not for PRN Use IH SCH ×3 (10:39→20:11)
[2018-02-12] MEDS: LASIX IV SCH (10:51)
--- NOTE | 2018-02-12 17:59 | Progress Note ---
Assessment and Plan 77 yo M s/p exploratory laparotomy, lysis of adhesions, small bowel resection POD 8 1. ischemic bowel 2. sepsis 2/2 #1 3. UTI Plan: 1. c/w full liquids 2. dc IVF 3. IS encouraged 4. Dulcolax CO and miralax PO today 5. DVT ppx 6. prn PO pain control 8. OOB, ambulate, PT 9. Pathology - ischemic small intestine, benign viable surgical margins, negative for malignancy Likely dc home with hospice tomorrow from surgical standpoint. D/W Case management Please call with questions or concerns. Subjective Date of service: 02/12/18 Narrative: Pt seen and examined. Feels well. No abdominal pain, n/v. Tolerating full liquids. Has been walking with PT. Pt states he is passing flatus. NO BM today. Objective Vital Signs - 12hr 02/12/18 02/12/18 02/12/18 07:36 10:35 10:52 Temperature 97.8 F Pulse Rate 71 Pulse Rate [ 74 74 Anterior Bilateral Upper Lobe] Pulse Rate [ 74 74 Bilateral Throughout] Respiratory 18 Rate Respiratory 20 18 Rate [Anterior Bilateral Upper Lobe] Respiratory 20 18 Rate [Bilateral Throughout] Blood Pressure 132/49 O2 Sat by Pulse 99 Oximetry 02/12/18 02/12/18 02/12/18 11:13 15:45 15:56 Temperature 97.9 F Pulse Rate 79 Pulse Rate [ 75 78 Anterior Bilateral Upper Lobe] Pulse Rate [ 78 Bilateral Throughout] Respiratory 18 Rate Respiratory 18 18 Rate [Anterior Bilateral Upper Lobe] Respiratory 18 Rate [Bilateral Throughout] Blood Pressure 155/74 O2 Sat by Pulse 99 Oximetry 02/12/18 02/12/18 16:15 16:16 Temperature 97.9 F Pulse Rate 79 Pulse Rate [ Anterior Bilateral Upper Lobe] Pulse Rate [ Bilateral Throughout] Respiratory 18 Rate Respiratory Rate [Anterior Bilateral Upper Lobe] Respiratory Rate [Bilateral Throughout] Blood Pressure 155/69 O2 Sat by Pulse 99 Oximetry - General physical appearance Narrative Exam: Gen: Awake and alert. NAD CV: S1, s2+ resp: even and unlabored Abd: soft, NT. ND. incision c/d/i. + Bowel sounds Ext: no c/c/e - Labs 02/12/18 05:31 02/12/18 05:31 Diabetes panel 02/12/18 Range/Units 05:31 Sodium 141 (137-145) mmol/L Potassium 3.5 L (3.6-5.0) mmol/L Chloride 97.5 L (98-107) mmol/L Carbon Dioxide 32 H (22-30) mmol/L BUN 12 (9-20) mg/dL Creatinine 0.9 (0.8-1.5) mg/dL Glucose 90 (75-100) mg/dL Calcium 9.0 (8.4-10.2) mg/dL Calcium panel 02/12/18 Range/Units 05:31 Calcium 9.0 (8.4-10.2) mg/dL Pituitary panel 02/12/18 Range/Units 05:31 Sodium 141 (137-145) mmol/L Potassium 3.5 L (3.6-5.0) mmol/L Chloride 97.5 L (98-107) mmol/L Carbon Dioxide 32 H (22-30) mmol/L BUN 12 (9-20) mg/dL Creatinine 0.9 (0.8-1.5) mg/dL Glucose 90 (75-100) mg/dL Calcium 9.0 (8.4-10.2) mg/dL Adrenal panel 02/12/18 Range/Units 05:31 Sodium 141 (137-145) mmol/L Potassium 3.5 L (3.6-5.0) mmol/L Chloride 97.5 L (98-107) mmol/L Carbon Dioxide 32 H (22-30) mmol/L BUN 12 (9-20) mg/dL Creatinine 0.9 (0.8-1.5) mg/dL Glucose 90 (75-100) mg/dL Calcium 9.0 (8.4-10.2) mg/dL
[2018-02-12] MEDS ORDERED: MIRALAX 3350 PO ONE (20:00)
[2018-02-12] MEDS ORDERED: DULCOLAX PR ONE (20:00)
[2018-02-13] MEDS: NITRO DUR TD SCH (05:41)
[2018-02-13] MEDS: HEPARIN SUB-Q SCH ×2 (05:42→14:36)
[2018-02-13] MEDS: DUONEB *Not for PRN Use IH SCH (08:22)
[2018-02-13] MEDS: LASIX IV SCH (10:35)
--- NOTE | 2018-02-13 12:47 | Progress Note ---
Assessment and Plan 77 yo M s/p exploratory laparotomy, lysis of adhesions, small bowel resection POD 9 1. ischemic bowel 2. sepsis 2/2 #1 3. UTI Plan: 1. adv to GI soft diet 2. DVT ppx 3. prn PO pain control 4. OOB, ambulate, PT 5. Pathology - ischemic small intestine, benign viable surgical margins, negative for malignancy Ok for dc home with hospice with granddaughter from surgery standpoint. May follow up in surgery office in 1 week for staple removal. No heavy lifting for 4 weeks. Please call with questions or concerns. Subjective Date of service: 02/13/18 Narrative: Patient seen and examined. He has no new complaints. Overnight uneventful. He had multiple bowel movements. He is tolerating a full liquid diet. No fevers, chills, chest pain, shortness of breath, abdominal pain. Objective Vital Signs - 12hr 02/13/18 02/13/18 02/13/18 05:15 05:41 08:00 Temperature 98.0 F Pulse Rate 100 H Pulse Rate [ 78 Bilateral Throughout] Respiratory 17 Rate Respiratory 16 Rate [Bilateral Throughout] Blood Pressure 123/55 123/55 Blood Pressure [Left] O2 Sat by Pulse 99 Oximetry 02/13/18 02/13/18 08:33 12:30 Temperature 97.8 F Pulse Rate 103 H Pulse Rate [ 82 Bilateral Throughout] Respiratory 20 Rate Respiratory 14 Rate [Bilateral Throughout] Blood Pressure Blood Pressure 125/68 [Left] O2 Sat by Pulse 93 Oximetry - General physical appearance Narrative Exam: General: Awake, alert. No apparent distress CV: S1, S2 present Respiratory: No audible wheezes Abdomen: Soft, nontender, nondistended. Incision is clean, dry, intact. Abdominal binder is in place Extremities: No clubbing, cyanosis, edema - Labs 02/12/18 05:31 02/12/18 05:31
--- NOTE | 2018-02-13 13:23 | Discharge Summary ---
<VLADIMIR HIGUERA - Last Filed: 02/13/18 13:30> Providers - Providers Date of Admission: 02/04/18 09:46 Date of discharge: 02/13/18 Attending physician: VLADIMIR HIGUERA 02/04/18 09:05 Consult to Physician [CONS] Urgent Comment: Consulting Provider: TAMEKA DEL TORO Physician Instructions: Reason For Exam: abd pain, dilated small bowel segment 02/04/18 21:34 Consult to Case Management [CONS] Routine Services Needed at Discharge: Home Health Services Notified:: cm notified 02/04/18 21:35 Physical Therapy Evaluation and Treat [CONS] Routine Comment: Reason For Exam: post op, deconditioning 02/05/18 17:38 Occupational Therapy Evaluate and Treat [CONS] Routine Comment: Reason For Exam: post op, deconditioning Primary care physician: MICAELA BERMUDEZ Hospitalization Reason for admission: abdominal pain Condition: Stable Pertinent studies: CT abdomen/pelvis w contrast: 1. New ascites and approximately 50 cm segment of probable mid small bowel thickening and fluid filled dilatation, as detailed above, possibly representing enteritis. Closed-loop obstruction may though also be correlated for clinically in the given setting. 2. Various other incidental findings as cardiomegaly, trace bibasilar pleural effusions and renal cysts, amongst others, as above. Procedures: Pathology report - ischemic small intestine, benign viable surgical margins, negative for malignancy Hospital course: 77 yo M with hx of CAD, EF 10-20%, dementia presents to ER with c/o one day hx of abd pain, located epigastrum and periumbilical area, without radiation, associated with one episode of nonbilious/nonbloody emesis. The patient stated he has never had pain like this in the past. CT scan findings concerning for internal hernia and closed loop small bowel obstruction. General surgery was consulted and patient underwent exploratory laparotomy with lysis of adhesions small bowel resection. Patient had 40 cm of ischemic small bowel, closed loop small bowel obstruction due to band adhesion/internal hernia. Cardiology was consulted for preop clearance. Patient did well following the surgery. His diet was advanced to GI soft diet and was cleared by surgery for discharge. Discharge Diagnosis and management: --Small bowel obstruction --s/p exploratory laparotomy, lysis of adhesions, small bowel resection post op care managed per surgery, evaluated by PT, advnaced to diet --Metabolic encephalopathy/confusion; likely metabolic/toxic from SBO and UTI, resolved --Hypertension; well controlled on antihypertensives --Acute on chronic systolic congestive heart failure; EF 15-20%. cardiology was following. He will cont outpt medications following discharge --Dyslipidemia; resumed lipid-lowering medications on discharge --Sepsis secondary to UTI; Escherichia coli, Completed antibiotics treatment --DVT prophylaxis; SCDs --Full CODE STATUS --DC planning per case management; home with home hospice Hospitalist Physical General appearance: Present: no acute distress, cachectic, disheveled - EENT Eyes: Present: PERRL, EOM intact - Neck Neck: Present: supple, normal ROM - Respiratory Respiratory effort: normal Respiratory: bilateral: diminished, negative: rales, rhonchi, wheezing - Cardiovascular Rhythm: regular Heart Sounds: Present: S1 & S2 - Extremities Extremities: no ischemia - Abdominal General gastrointestinal: soft, non-tender, non-distended, normal bowel sounds - Integumentary Integumentary: Present: clear, warm - Psychiatric Psychiatric: appropriate mood/affect, cooperative - Neurologic Neurologic: CNII-XII intact, moves all extremities Disposition: DC-50 TO HOSPICE (HOME) Time spent for discharge: 34 minutes Core Measure Documentation - Palliative Care Palliative Care/ Comfort Measures: Hospice Care - Core Measures Any of the following diagnoses?: history only Exam - Constitutional Vitals: Temp Pulse Resp BP Pulse Ox 97.8 F 103 H 20 125/68 93 02/13/18 12:30 02/13/18 12:30 02/13/18 12:30 02/13/18 12:30 02/13/18 12:30 Plan Activity: up only with assistance Weight Bearing Status: Non-Weight Bearing Diet: other (GI soft diet) Wound: per your surgeon's advice Follow up with: MICAELA BERMUDEZ MD [Primary Care Provider] - 7 Days TAMEKA DEL TORO DO [Staff Physician] - 7 Days <TAMEKA DEL TORO - Last Filed: 02/13/18 17:31> Providers - Providers Date of Admission: 02/04/18 09:46 Attending physician: VLADIMIR HIGUERA 02/04/18 09:05 Consult to Physician [CONS] Urgent Comment: Consulting Provider: TAMEKA DEL TORO Physician Instructions: Reason For Exam: abd pain, dilated small bowel segment 02/04/18 21:34 Consult to Case Management [CONS] Routine Services Needed at Discharge: Home Health Services Notified:: cm notified 02/04/18 21:35 Physical Therapy Evaluation and Treat [CONS] Routine Comment: Reason For Exam: post op, deconditioning 02/05/18 17:38 Occupational Therapy Evaluate and Treat [CONS] Routine Comment: Reason For Exam: post op, deconditioning Primary care physician: MICAELA BERMUDEZ Exam - Constitutional Vitals: Temp Pulse Resp BP Pulse Ox 97.9 F 93 H 18 139/68 93 02/13/18 16:15 02/13/18 16:15 02/13/18 16:15 02/13/18 16:15 02/13/18 12:30 Plan Activity: other (no heavy lifting) Wound: other (keep wound open to air. Do not remove george, they will be removed on follow up visit. May shower, no baths/hottubs/pools) Special Instructions: no heavy lifting
[2018-02-13] MEDS ORDERED: K-DUR PO ONE (14:00)
[2018-02-13 16:30] VITALS: BP 139/68
== END 2018-02-13 17:50 | disposition hospice, home (50) | DRG 853 ==
LOC: ED 05:19 → 3A 09:46 → 3B-SURG 13:34
PROVIDERS: ADMIT Internal Medicine; ATTEND Internal Medicine
PROC: 0DB80ZZ Excision of Small Intestine, Open Approach (ICD-10-PCS; principal; 2018-02-04)
DX: A41.9 Sepsis, unspecified organism (principal); G92 Toxic encephalopathy; I50.43 Acute on chronic combined systolic (congestive) and diastolic (congestive) heart failure; N39.0 Urinary tract infection, site not specified; I47.1 Supraventricular tachycardia; I42.9 Cardiomyopathy, unspecified; K56.50 Intestinal adhesions [bands], unspecified as to partial versus complete obstruction; F03.90 Unspecified dementia, unspecified severity, without behavioral disturbance, psychotic disturbance, mood disturbance, and anxiety; I11.0 Hypertensive heart disease with heart failure; E78.5 Hyperlipidemia, unspecified; I25.10 Atherosclerotic heart disease of native coronary artery without angina pectoris; B96.20 Unspecified Escherichia coli [E. coli] as the cause of diseases classified elsewhere; D64.9 Anemia, unspecified; R94.31 Abnormal electrocardiogram [ECG] [EKG]; Z82.49 Family history of ischemic heart disease and other diseases of the circulatory system; Z79.82 Long term (current) use of aspirin; Z79.899 Other long term (current) drug therapy
CPT/HCPCS: 36415; 51702; 74177; 80048; 80053; 81001; 82140; 82962; 83690; 83735; 84100; 85025; 85027; 86850; 86900; 86901; 87076; 87086; 87186; 88307; 93005; 93010; 94640; 94760; 96365; 96375; C9113; G8978-GP; G8979-GP; G8987-GO; G8988-GO; J0330; J0360; J0696; J1100; J1170; J1630; J1644; J1940; J1956; J2270; J2370; J2405; J2543; J2710; J3475; J3480; J7030; Q9967